=== PATIENT | female | born 1950 | race Caucasian/White ===

== ENCOUNTER 2020-01-07 08:50 | Outpatient (REF) | payer MEDICARE, OTHER, SELFPAY ==
[2020-01-07 10:36] LABS: MANUAL DIFF FLAG NO
[2020-01-07 10:47] LABS: Basophils Absolute Auto 0.1 X10*3/uL (0.0-0.2); Basophils Percent Auto 0.7 % (0-2); Eosinophils Absolute Auto 0.3 X10*3/uL (0.0-0.4); Eosinophils Percent Auto 3.9 % (0-4); Hematocrit 44.2 % (37-47); Hemoglobin 14.5 g/dl (12.0-16.0); Imm Gran Abs Auto 0.01 X10*3/uL (0.00-0.03); Imm Gran Pct Auto 0.1 % (0.0-0.4); Lymphocytes Percent Auto 28.6 % (20-40); Mean Corpuscular HGB Conc 32.8 g/dl (31.0-35.0); Mean Corpuscular Hemoglobin 30.9 pg (27.0-33.0); Mean Corpuscular Volume 94.2 fL (80-98); Mean Platelet Volume 9.3 fL (9.4-12.3); Monocytes Absolute Auto 0.8 X10*3/uL (0.1-1.2); Monocytes Percent Auto 11.9 % (2-11); Neutrophils Absolute Auto 3.8 X10*3/uL (2.0-8.3); Neutrophils Percent Auto 54.8 % (45-73); Platelet Count 381 X10*3/uL (160-400); Red Blood Count 4.69 X10*6/uL (4.20-5.50)
== END 2020-01-07 08:51 | disposition home or self-care (01) ==
LOC: HO.LAB 08:50
PROVIDERS: PCP Internal Medicine; Referring Provider Internal Medicine; Visit Provider Internal Medicine Pulmonary Disease
DX: J45.50 Severe persistent asthma, uncomplicated (principal); J44.9 Chronic obstructive pulmonary disease, unspecified; Z91.09 Other allergy status, other than to drugs and biological substances
CPT/HCPCS: 36415; 82785; 85025; 86003; 99212

== ENCOUNTER 2020-04-16 08:42 | Outpatient (REF) | payer MEDICARE, OTHER, SELFPAY ==
--- NOTE | ~2020-04-16 | MR_ITS ---
EXAMINATION: MRI OF THE BRAIN WITH AND WITHOUT IV CONTRAST INDICATION: Limited encephalitis. Intractable headache. COMPARISON: Brain MRI 09/17/2015. TECHNIQUE: Multiplanar multisequence MR imaging of the brain was obtained without and following the administration of 4.5 mL of Gadavist without complication. FINDINGS: Stable appearing nonenhancing T2 signal changes involving the fornices and posterior body and splenium of the corpus callosum. Stable nonspecific periventricular T2 signal changes. No progressive signal abnormalities and no pathologic enhancement intracranially. There is no hydrocephalus, extra-axial surface collection, or herniation. The major flow voids at the skull base are preserved. There is no acute infarct on diffusion-weighted imaging. There is no intracranial hemorrhage on the gradient recalled echo acquisition. The midline structures are normal. The cerebellar tonsils are normally positioned. The cerebellum and brainstem are normal. The craniocervical junction is normal. Osseous marrow signal intensity is homogenous. The visualized soft tissues are unremarkable. MR/MR head/brain wo/w con IMPRESSION: Stable appearing nonenhancing T2 signal changes involving the fornices and posterior body and splenium of the corpus callosum. Stable nonspecific periventricular T2 signal changes. No progressive signal abnormalities and no pathologic enhancement intracranially.
[2020-04-16 09:22] LABS: Blood Urea Nitrogen 5 mg/dL (9-16); Estimated Glomerular Filt Rate > 60
== END 2020-04-16 08:43 | disposition home or self-care (01) ==
LOC: HO.MRI 08:42
PROVIDERS: Visit Provider Psychiatry & Neurology Neurology
DX: R51.9 Headache, unspecified (principal); G31.84 Mild cognitive impairment of uncertain or unknown etiology
CPT/HCPCS: 36415; 70553; 82565; 84520; A9585

== ENCOUNTER → 2020-05-14 14:21 | Outpatient (BNVA) | payer MEDICARE, OTHER, SELFPAY | PROVIDERS: PCP Internal Medicine; Visit Provider Internal Medicine Pulmonary Disease | DX: J45.50 Severe persistent asthma, uncomplicated (principal); Z91.09 Other allergy status, other than to drugs and biological substances | CPT/HCPCS: 99212 ==

== ENCOUNTER 2020-09-14 08:15 | Day surgery (SDC) | payer MEDICARE, OTHER, SELFPAY ==
--- NOTE | 2020-09-11 08:46 | HO.ANESPROP2 ---
HPI - Anesthesia Eval Consult details Narrative: 70yo F for Colonoscopy PMFSH Active Problems Active Problems: All Active Problems (Updated 08/10/20 @ 16:06 by Madeleine Clemenst) Otitis externa (Acute) Severe persistent allergic asthma (Acute) Environmental allergies (Acute) Past Medical History Medical History Asthma Hiatal hernia Irritable bowel syndrome with constipation Migraine Family History Family History (Updated 12/25/19 @ 08:55 by Shelia Vance Geni) Father Diabetes Mother Cancer Surgical History Surgical History H/O ventral hernia repair History of bilateral carpal tunnel release History of esophagogastroduodenoscopy (EGD) Hx of colonoscopy Social History Social History (Updated 01/07/20 @ 09:00 by Ashleigh Vail MA) Patient Tobacco Use Status: Former Tobacco user Years Smoked: 20-25 yrs Use of substances other than those prescribed or required for medical reasons: No Are you DNR?: No Advance Directives: No Advance Directives Information Provided: Yes Meds Allergies Allergy/AdvReac Type Severity Reaction Status Date / Time azithromycin Allergy Severe hives Verified 09/14/20 09:12 amoxicillin [AMOXICILLIN] Allergy Intermediate UNKNOWN Verified 09/14/20 09:12 doxycycline [DOXYCYCLINE] Allergy Intermediate Hives Verified 09/14/20 09:12 latex Allergy Intermediate Swelling Verified 09/14/20 09:12 Sulfa (Sulfonamide Allergy Intermediate HIVES Verified 09/14/20 09:12 Antibiotics) [SULFA (SULFONAMIDE ANTIBIOTICS)] Home Medications Medication Instructions Recorded Confirmed Last Taken Type levalbuterol HCl 1.25 mg/3 mL 0.4167 mg INHALATION Q8H PRN 12/26/19 08/10/20 Unknown History solution for nebulization gghdofkb-rkdqmhgux-mmjkadalf ear 4 drp OTIC (EARS) BID 02/07/20 Unknown History drops,suspension oucisspwfn-imjfkfenikcrv-jdfu 1 tab PO Q6H PRN 08/10/20 08/10/20 Unknown History divalproex 1 tab PO DAILY 08/10/20 08/10/20 Unknown History promethazine 1 tab PO BID PRN 08/10/20 08/10/20 Unknown History Exam Exam Date and Time: September 11, 2020 2591 Assessment and Plan Assessment Anesthesia Assessment: Chart Reviewed
[2020-09-14 09:22] VITALS: BMI 20.2
[2020-09-14 09:30] VITALS: BP 128/49; PULSE 72; RESP 18; TEMP 36.1; O2SAT 98
[2020-09-14] MEDS: Lactated Ringers 1,000 ML 100 ML IVCONT (09:53)
[2020-09-14 10:37] VITALS: BP 123/74; PULSE 67; RESP 16; TEMP 36.3; O2SAT 99
--- NOTE | 2020-09-14 10:40 | PM.OP ---
Brief Operative Note Date of Service: 09/14/20 Pre-op diagnosis: Screening Post-op diagnosis: other (Diverticulosis) Procedure: Colonoscopy to the cecum and TI Surgeon: Arthur De La Cruz Anesthesia: MAC Was an Insurance Salesperson used for this Procedure?: No Estimated blood loss (mL): 0 Pathology: none sent Condition: stable Disposition: PACU
[2020-09-14 10:53] VITALS: BP 123/44; PULSE 67; RESP 16; TEMP 36.4; O2SAT 95
--- NOTE | 2020-09-14 10:53 | OP_ITS ---
SURGEON: Arthur De La Cruz MD INDICATIONS: The patient presents for evaluation of colorectal cancer screening and personal history of tubular adenoma of the colon. Full consent has been obtained from her for this, including risks of bleeding and perforation. PREOPERATIVE DIAGNOSIS: POSTOPERATIVE DIAGNOSIS: PROCEDURE PERFORMED: Colonoscopy to cecum and terminal ileum. ESTIMATED BLOOD LOSS: COMPLICATIONS: ANESTHESIA: Monitored anesthesia care. ASSISTANTS: SPECIMENS: PREOPERATIVE DIAGNOSES: Colorectal cancer screening and personal history of tubular adenoma of the colon. POSTOPERATIVE DIAGNOSES: Colorectal cancer screening and personal history of tubular adenoma of the colon, diverticulosis and internal hemorrhoids. DESCRIPTION OF PROCEDURE: The patient was placed in the left lateral decubitus position. The digital rectal exam revealed no abnormalities. The Olympus video pediatric colonoscope was entered into the rectum and advanced easily to the cecum. Once in the cecum, I did identify normal-appearing cecal pouch with appendiceal orifice and a normal-appearing ileocecal valve. The terminal ileum was cannulated and appeared normal. The scope was withdrawn back in the colon. The entire cecum and ileocecal valve appeared normal. The scope was slowly withdrawn assessing all mucosal surfaces carefully. Preparation was excellent. I did not visualize any sign of polyps, colitis, nor angiodysplasia. There was a mild amount of sigmoid diverticulosis. In the rectum, scope was retroflexed visualizing internal hemorrhoids, but no other pathology. The rectal mucosa appeared normal. The scope was straightened out and withdrawn from the patient. She tolerated the procedure well and was returned to the recovery area in stable condition. IMPRESSION: 1. Diverticulosis. 2. Internal hemorrhoids. PLAN: Given her previous history of tubular adenoma, I would recommend a followup colonoscopy in 5 years for further screening and surveillance. She was advised to continue her fiber for her constipation. She will see me on a p.r.n. basis. MD OLE Pelletier/DAVID / [id number]
== END 2020-09-14 11:24 | disposition home or self-care (01) ==
PROVIDERS: PCP Internal Medicine; Visit Provider Internal Medicine
PROC: 0DJD8ZZ Inspection of Lower Intestinal Tract, Via Natural or Artificial Opening Endoscopic (ICD-10-PCS; CPT 45378; principal; 2020-09-14 09:20)
DX: Z12.11 Encounter for screening for malignant neoplasm of colon (principal); Z86.010 Personal history of colon polyps; K57.30 Diverticulosis of large intestine without perforation or abscess without bleeding; K64.8 Other hemorrhoids; K58.1 Irritable bowel syndrome with constipation; J45.909 Unspecified asthma, uncomplicated; Z87.891 Personal history of nicotine dependence; Z79.899 Other long term (current) drug therapy; Z88.1 Allergy status to other antibiotic agents; Z88.2 Allergy status to sulfonamides; Z91.040 Latex allergy status
CPT/HCPCS: G0105

== ENCOUNTER → 2020-11-13 12:59 | Outpatient (BNVA) | payer MEDICARE, OTHER, SELFPAY | PROVIDERS: PCP Internal Medicine; Visit Provider Internal Medicine Pulmonary Disease | DX: J45.50 Severe persistent asthma, uncomplicated (principal); Z91.09 Other allergy status, other than to drugs and biological substances | CPT/HCPCS: 99212 ==

== ENCOUNTER → 2020-12-07 10:30 | Outpatient (BNVA) | payer MEDICARE, OTHER, SELFPAY | PROVIDERS: PCP Internal Medicine; Visit Provider Internal Medicine Pulmonary Disease | DX: J45.50 Severe persistent asthma, uncomplicated (principal); Z91.09 Other allergy status, other than to drugs and biological substances | CPT/HCPCS: 99212 ==

== ENCOUNTER 2021-01-08 07:08 | Outpatient (REF) | payer MEDICARE, OTHER, SELFPAY ==
[2021-01-08 07:25] LABS: MANUAL DIFF FLAG NO
[2021-01-08 07:44] LABS: Basophils Percent Auto 0.6 % (0-2); Eosinophils Absolute Auto 0.3 X10*3/uL (0.0-0.4); Eosinophils Percent Auto 4.9 % (0-4); Hematocrit 41.9 % (37.0-47.0); Hemoglobin 14.4 g/dl (12.0-16.0); Lymphocytes Absolute Auto 1.8 X10*3/uL (1.2-4.9); Lymphocytes Percent Auto 33.8 % (20-40); Mean Corpuscular HGB Conc 34.4 g/dl (31.0-35.0); Mean Corpuscular Volume 93.1 fL (80.0-98.0); Mean Platelet Volume 8.8 fL (9.4-12.3); Monocytes Absolute Auto 0.6 X10*3/uL (0.1-1.2); Monocytes Percent Auto 11.2 % (2-11); Neutrophils Absolute Auto 2.6 x10*3/uL (2.0-8.3); Neutrophils Percent Auto 49.5 % (45-73); Platelet Count 375 X10*3/uL (160-400); White Blood Count 5.3 X10*3/uL (4.8-10.8)
[2021-01-08 07:52] LABS: Estimated Average Glucose 140 mg/dL; Hemoglobin A1c % 6.5 %
[2021-01-08 07:54] LABS: Alanine Aminotransferase 15 U/L (0-31); Albumin Level 4.2 g/dL (3.5-5.0); Alkaline Phosphatase 116 U/L (39-117); Anion Gap 14 (12-20); Aspartate Amino Transferase 19 U/L (5-31); Bilirubin Total 0.7 mg/dL (0.0-1.0); Blood Urea Nitrogen 6 mg/dL (9-16); Calcium 9.1 mg/dL (8.4-10.2); Carbon Dioxide 26 mmol/L (22-29); Chloride 104 mmol/L (96-108); Cholesterol 259 mg/dL; Estimated Glomerular Filt Rate > 60; Glucose Fasting 136 mg/dL (60-99); HDL Cholesterol 70 mg/dL; LDL Cholesterol Calculated 172 mg/dl; Potassium 4.4 mmol/L (3.3-5.1); Sodium 140 mmol/L (135-145); Total Protein 6.9 g/dL (6.5-8.0); Triglycerides 85 mg/dL
[2021-01-08 08:16] LABS: Thyroid Stimulating Hormone 1.18 uIU/mL (0.32-4.0)
[2021-01-13 13:11] LABS: Vitamin D 25-OH, D2 <4 ng/mL; Vitamin D 25-OH, D3 32 ng/mL; Vitamin D 25-OH, Total 32 ng/mL (30-100)
== END 2021-01-08 07:09 | disposition home or self-care (01) ==
LOC: HO.LAB 07:08
PROVIDERS: PCP Internal Medicine; Visit Provider Internal Medicine
DX: Z00.00 Encounter for general adult medical examination without abnormal findings (principal); E11.9 Type 2 diabetes mellitus without complications
CPT/HCPCS: 36415; 80053; 80061; 82306; 83036; 84443; 85025

== ENCOUNTER → 2021-01-18 10:26 | Outpatient (BNVA) | payer MEDICARE, OTHER, SELFPAY | PROVIDERS: PCP Internal Medicine; Visit Provider Internal Medicine Pulmonary Disease | DX: J45.50 Severe persistent asthma, uncomplicated (principal); Z91.09 Other allergy status, other than to drugs and biological substances | CPT/HCPCS: 99212 ==

== ENCOUNTER → 2021-04-30 14:08 | Outpatient (BNVA) | payer MEDICARE, OTHER, SELFPAY | PROVIDERS: PCP Internal Medicine; Visit Provider Internal Medicine Pulmonary Disease | DX: J45.50 Severe persistent asthma, uncomplicated (principal); Z91.09 Other allergy status, other than to drugs and biological substances | CPT/HCPCS: 99212 ==

== ENCOUNTER 2021-05-28 09:05 | Outpatient (REF) | payer MEDICARE, OTHER, SELFPAY | END 2021-05-28 09:06 | disposition home or self-care (01) | LOC: HO.MDS 09:05 | PROVIDERS: Visit Provider Internal Medicine Pulmonary Disease | DX: J45.50 Severe persistent asthma, uncomplicated (principal) | CPT/HCPCS: 96372; J2357 ==

== ENCOUNTER 2021-06-25 08:18 | Outpatient (REF) | payer MEDICARE, OTHER, SELFPAY | END 2021-06-25 08:19 | disposition home or self-care (01) | LOC: HO.MDS 08:18 | PROVIDERS: Visit Provider Internal Medicine Pulmonary Disease | DX: J45.50 Severe persistent asthma, uncomplicated (principal) | CPT/HCPCS: 96372; J2357 ==

== ENCOUNTER 2021-07-23 08:51 | Outpatient (REF) | payer MEDICARE, OTHER, SELFPAY | END 2021-07-23 08:52 | disposition home or self-care (01) | LOC: HO.MDS 08:51 | PROVIDERS: Visit Provider Internal Medicine Pulmonary Disease | DX: J45.50 Severe persistent asthma, uncomplicated (principal) | CPT/HCPCS: 96372 ==

== ENCOUNTER → 2021-07-26 10:29 | Outpatient (BNVA) | payer MEDICARE, OTHER, SELFPAY | PROVIDERS: PCP Internal Medicine; Visit Provider Internal Medicine Pulmonary Disease | DX: J45.50 Severe persistent asthma, uncomplicated (principal); Z91.09 Other allergy status, other than to drugs and biological substances; Z79.899 Other long term (current) drug therapy | CPT/HCPCS: 99212 ==

== ENCOUNTER 2021-09-17 11:15 | Outpatient (REF) | payer MEDICARE, OTHER, SELFPAY | END 2021-09-17 11:16 | disposition home or self-care (01) | LOC: HO.MDS 11:15 | PROVIDERS: Visit Provider Internal Medicine Pulmonary Disease | DX: J45.50 Severe persistent asthma, uncomplicated (principal) | CPT/HCPCS: 96372; J2357 ==

== ENCOUNTER 2021-10-14 13:16 | Outpatient (REF) | payer MEDICARE, OTHER, SELFPAY ==
--- NOTE | ~2021-10-14 | MM_ITS ---
EXAMINATION: BONE DENSITOMETRY CLINICAL INDICATION: Osteoporosis. COMPARISON: Baseline BD dated 01/02/2014. TECHNIQUE: Using a [employer] DXA System (software version: 13.1) manufactured by [employer], dual-energy x-ray absorptiometry was performed of the lumbar spine and left hip. The images are of good technical quality. Summary results are attached. FINDINGS: AP SPINE L1-L4: Current: BMD 0.818 g/cm2, Z-score -0.7, T-score -3.0, osteoporosis, 1.9% decrease from baseline (<5% change is not significant). Baseline: BMD 0.834 g/cm2. LEFT FEMUR, NECK: Current: BMD 0.677 g/cm2, Z-score -0.5, T-score -2.6, osteoporosis. Baseline: BMD 0.674 g/cm2. LEFT FEMUR, TOTAL: Current: BMD 0.619 g/cm2, Z-score -1.1, T-score -3.1, osteoporosis, 11.9% decrease from baseline (<5% change is not significant). Baseline: BMD 0.703 g/cm2. IDENTIFIED RISK FACTORS: Early menopause, glucocorticoids (chronic), secondary osteoporosis. HISTORY OF FRACTURE: None listed. MEDICATIONS: None listed. MM/XR DEXA axial skeleton IMPRESSION: 1. DIAGNOSIS: Osteoporosis based on the lowest T-score value of -3.1 in the total femur applying World Health Organization criteria. 2. 10-YEAR FRACTURE RISK PREDICTION, FRAX: Major osteoporotic fracture (clinical spine, forearm, hip or shoulder) 3.7%. Hip fracture 1.4%. 3. Treatment Recommendations: NOF guidelines recommend consideration for treatment in postmenopausal women and men age 50 and older presenting with the following: -A hip or vertebral (clinical or morphometric) fracture. -T-score less than or equal to -2.5 at the femoral neck or spine after appropriate evaluation to exclude secondary causes. -Low bone mass at the hip or spine and a 10-year fracture probability by FRAX of greater than or equal to 3% for hip fracture or greater than or equal to 20% for major osteoporotic fracture based on the [place] adapted WHO algorithm. 4. Other Recommendations: All treatment decisions require clinical judgment and consideration of individual patient factors, including patient preferences, comorbidities, previous drug use, risk factors not captured in the FRAX model (e.g. frailty, falls, vitamin D deficiency, increased bone turnover, interval significant decline in bone density) and possible under or overestimation of fracture risk by FRAX. Additional medical evaluation for secondary cause of low bone mineral density may be appropriate. FUTURE SCAN RECOMMENDATION: People with diagnosed cases of osteoporosis or at high risk for fracture should have regular bone mineral density tests. For patients eligible for Medicare, routine testing is allowed once every 2 years. The testing frequency can be increased to one year for patients who have rapidly progressing disease, those who are receiving or discontinuing medical therapy to restore bone mass, or have additional risk factors.
== END 2021-10-14 13:17 | disposition home or self-care (01) ==
LOC: HO.MAMMO 13:16
PROVIDERS: PCP Internal Medicine; Visit Provider Internal Medicine
DX: Z13.820 Encounter for screening for osteoporosis (principal); M81.0 Age-related osteoporosis without current pathological fracture; Z78.0 Asymptomatic menopausal state
CPT/HCPCS: 77080

== ENCOUNTER → 2021-10-18 09:54 | Outpatient (BNVA) | payer MEDICARE, OTHER, SELFPAY | PROVIDERS: PCP Internal Medicine; Visit Provider Internal Medicine Pulmonary Disease | DX: J45.50 Severe persistent asthma, uncomplicated (principal); Z87.891 Personal history of nicotine dependence; Z91.09 Other allergy status, other than to drugs and biological substances | CPT/HCPCS: 99212 ==

== ENCOUNTER → 2021-11-23 14:42 | Outpatient (BNVA) | payer MEDICARE, OTHER, SELFPAY | PROVIDERS: PCP Internal Medicine; Visit Provider Internal Medicine Pulmonary Disease | DX: J45.50 Severe persistent asthma, uncomplicated (principal); Z91.09 Other allergy status, other than to drugs and biological substances; Z87.891 Personal history of nicotine dependence | CPT/HCPCS: 99212 ==

== ENCOUNTER → 2021-12-29 15:20 | Outpatient (BNVA) | payer MEDICARE, OTHER, SELFPAY | PROVIDERS: PCP Internal Medicine; Visit Provider Internal Medicine Pulmonary Disease | DX: J45.50 Severe persistent asthma, uncomplicated (principal); Z91.09 Other allergy status, other than to drugs and biological substances | CPT/HCPCS: 99212 ==

== ENCOUNTER 2022-03-04 10:53 | Outpatient (REF) | payer MEDICARE, OTHER, SELFPAY ==
--- NOTE | ~2022-03-04 | XR_ITS ---
EXAMINATION: XR CHEST 2 VIEWS CLINICAL INFORMATION: Asthma. COMPARISON: Chest radiographs dated 10/05/2018. TECHNIQUE: Frontal and lateral views of the chest were obtained. FINDINGS: The heart, great vessels, pulmonary vasculature and mediastinum are normal. The lungs show no focal infiltrate, effusion or pneumothorax. There is biapical pleural thickening. There is no acute osseous abnormality. There is multi-level thoracic spondylosis. XR/XR chest 2V IMPRESSION: No active cardiopulmonary disease.
[2022-03-04 11:05] LABS: MANUAL DIFF FLAG NO
--- NOTE | 2022-03-04 11:06 | ECG_ITS ---
Test Reason : ASTHMA Blood Pressure : / mmHG Vent. Rate : 083 BPM Atrial Rate : 083 BPM P-R Int : 156 ms QRS Dur : 048 ms QT Int : 358 ms P-R-T Axes : 091 081 077 degrees QTc Int : 420 ms Normal sinus rhythm Normal ECG When compared with ECG of 05-AUG-2016 14:44, No significant changes seen Referred By: Ashvin Gunderson Electronically Signed By:Refugio Davis
[2022-03-04 12:29] LABS: Basophils Absolute Auto 0.1 X10*3/uL (0.0-0.2); Basophils Percent Auto 0.9 % (0-2); Eosinophils Absolute Auto 0.3 X10*3/uL (0.0-0.4); Eosinophils Percent Auto 3.7 % (0-4); Hematocrit 41.4 % (37.0-47.0); Hemoglobin 13.8 g/dl (12.0-16.0); Imm Gran Abs Auto 0.02 X10*3/uL (0.00-0.03); Imm Gran Pct Auto 0.3 % (0.0-0.4); Lymphocytes Absolute Auto 2.1 X10*3/uL (1.2-4.9); Lymphocytes Percent Auto 27.8 % (20-40); Mean Corpuscular HGB Conc 33.3 g/dl (31.0-35.0); Mean Corpuscular Hemoglobin 31.2 pg (27.0-33.0); Mean Corpuscular Volume 93.7 fL (80.0-98.0); Mean Platelet Volume 9.5 fL (9.4-12.3); Monocytes Absolute Auto 0.7 X10*3/uL (0.1-1.2); Monocytes Percent Auto 9.3 % (2-11); Neutrophils Absolute Auto 4.4 x10*3/uL (2.0-8.3); Platelet Count 358 X10*3/uL (160-400); Red Blood Count 4.42 X10*6/uL (4.20-5.50); Red Cell Distribution Width 12.1 % (11.0-16.0); White Blood Count 7.5 X10*3/uL (4.8-10.8)
[2022-03-04 12:43] LABS: Anion Gap 14 (12-20); Blood Urea Nitrogen 7 mg/dL (9-16); Calcium 9.3 mg/dL (8.4-10.2); Carbon Dioxide 27 mmol/L (22-29); Chloride 104 mmol/L (96-108); Estimated Glomerular Filt Rate > 60; Glucose Random 150 mg/dL (60-115); Potassium 4.5 mmol/L (3.3-5.1); Sodium 140 mmol/L (135-145)
== END 2022-03-04 10:54 | disposition home or self-care (01) ==
LOC: HO.XRAY 10:53
PROVIDERS: PCP Internal Medicine; Visit Provider Internal Medicine
DX: J45.909 Unspecified asthma, uncomplicated (principal); D64.9 Anemia, unspecified
CPT/HCPCS: 36415; 71046; 80048; 85025; 93005

== ENCOUNTER → 2022-07-01 14:31 | Outpatient (BNVA) | payer MEDICARE, OTHER, SELFPAY | PROVIDERS: PCP Internal Medicine; Visit Provider Internal Medicine Pulmonary Disease | DX: J45.50 Severe persistent asthma, uncomplicated (principal); Z91.09 Other allergy status, other than to drugs and biological substances | CPT/HCPCS: 99212 ==

== ENCOUNTER 2022-07-20 13:20 | Outpatient (REF) | payer MEDICARE, OTHER, SELFPAY | END 2022-07-20 13:21 | disposition home or self-care (01) | LOC: HO.MDS 13:20 | PROVIDERS: Visit Provider Internal Medicine Pulmonary Disease | DX: J45.50 Severe persistent asthma, uncomplicated (principal) | CPT/HCPCS: 96372; J2182 ==

== ENCOUNTER 2022-08-19 09:56 | Outpatient (REF) | payer MEDICARE, OTHER, SELFPAY | END 2022-08-19 09:57 | disposition home or self-care (01) | LOC: HO.MDS 09:56 | PROVIDERS: Visit Provider Internal Medicine Pulmonary Disease | DX: J45.50 Severe persistent asthma, uncomplicated (principal) | CPT/HCPCS: 96372; J2182 ==

== ENCOUNTER 2022-09-19 07:55 | Outpatient (REF) | payer MEDICARE, OTHER, SELFPAY | END 2022-09-19 07:56 | disposition home or self-care (01) | LOC: HO.MDS 07:55 | PROVIDERS: Visit Provider Internal Medicine Pulmonary Disease | DX: J45.50 Severe persistent asthma, uncomplicated (principal) | CPT/HCPCS: 96372; J2182 ==

== ENCOUNTER 2022-10-17 08:25 | Outpatient (REF) | payer MEDICARE, OTHER, SELFPAY | END 2022-10-17 08:26 | disposition home or self-care (01) | LOC: HO.MDS 08:25 | PROVIDERS: Visit Provider Internal Medicine Pulmonary Disease | DX: J45.50 Severe persistent asthma, uncomplicated (principal) | CPT/HCPCS: 96372; J2182 ==

== ENCOUNTER 2022-11-14 08:24 | Outpatient (REF) | payer MEDICARE, OTHER, SELFPAY | END 2022-11-14 08:25 | disposition home or self-care (01) | LOC: HO.MDS 08:24 | PROVIDERS: Visit Provider Internal Medicine Pulmonary Disease | DX: J45.50 Severe persistent asthma, uncomplicated (principal) | CPT/HCPCS: 96372; J2182 ==

== ENCOUNTER 2022-12-12 08:28 | Outpatient (REF) | payer MEDICARE, OTHER, SELFPAY | END 2022-12-12 08:29 | disposition home or self-care (01) | LOC: HO.MDS 08:28 | PROVIDERS: Visit Provider Internal Medicine Pulmonary Disease | DX: J45.50 Severe persistent asthma, uncomplicated (principal) | CPT/HCPCS: 96372; J2182 ==

== ENCOUNTER 2022-12-16 09:39 | Outpatient (AMB) | payer MEDICARE, OTHER, SELFPAY ==
[2022-12-16 09:42] VITALS: BP 122/58; PULSE 80; O2SAT 96; BMI 20.6
--- NOTE | 2022-12-16 09:42 | A.OFFPC_ITS ---
Vital Signs 12/16/22 09:42 Height 4 ft 11 in Weight 102 lb BMI 20.6 BP 122/58 L Blood Pressure Location Lt brachial Position Sitting Pulse 80 Pulse Source Pulse Oximeter Pulse Oximetry (%) 96 Oxygen Delivery Method Room Air Intake Visit Reasons: Discuss Bone density / Flu shot Allergies azithromycin Allergy (Severe, Verified 12/16/22 09:42) hives amoxicillin [AMOXICILLIN] Allergy (Intermediate, Verified 12/16/22 09:42) UNKNOWN doxycycline [DOXYCYCLINE] Allergy (Intermediate, Verified 12/16/22 09:42) Hives latex Allergy (Intermediate, Verified 12/16/22 09:42) Swelling Sulfa (Sulfonamide Antibiotics) [SULFA (SULFONAMIDE ANTIBIOTICS)] Allergy (Intermediate, Verified 12/16/22 09:42) HIVES Medication List - Last Reconciled 12/16/22 by Ashvin Gunderson MD albuterol sulfate 90 mcg/actuation (ProAir RespiClick) 2 inhalations inhalation Q4-6H PRN 30 days budesonide 0.5 mg (2 mL) inhalation BID 30 days bsjanoiqdg-ayuwwtzivcund-tfaq 50-325-40 mg 1 tab PO Q6H PRN dicyclomine 20 mg (2 x 10 mg) PO QID hydrocodone-acetaminophen 7.5-325 mg/15 mL 15 mL PO Q4-6H PRN 30 days ipratropium-albuterol 0.5 mg-3 mg(2.5 mg base)/3 mL 3 mL inhalation Q4-6H PRN 30 days mepolizumab (Nucala) 100 mg subcut Q4W 28 days methylprednisolone (Medrol (Gal)) PO PER PKG DIR zolpidem 5 mg PO BEDTIME PRN Tobacco use date assessed: 03/04/22 Fall risk assessment: No Falls in past year Last assessed Fall Risk: 12/16/22 Dental Screening Dental Screen Date: 12/16/22 Did you have a dental visit in the last 12 months?: No Did you have a dental problem in the last 6 months where you did not have access to dental care?: No Was dental information given to patient?: Patient has dentist HPI Discuss Bone density / Flu shot HPI Details has asthma and 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 be 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; also has headaches and will be going to [facility] neurology for that; has osteoporosis on bone density but not due for a repeat until next year [facility] Medical History Migraine headache Hiatal hernia Migraine Irritable bowel syndrome with constipation Asthma Surgical History History of bilateral carpal tunnel release History of esophagogastroduodenoscopy (EGD) Hx of colonoscopy H/O ventral hernia repair Family History Father Diabetes Mother Cancer Social History Housing: House Patient Tobacco Use Status: Former Tobacco user Tobacco use type: Cigarette Years Smoked: 20-25 yrs e-Cigarette/Vaping Use: Never Used Second Hand Smoke Exposure: No service: No Current occupational status: retired Cognitive needs: No Hearing needs: No Vision needs: No Questionnaire PHQ-9 Over the last 2 weeks, how often have you been bothered by any of the following problems? 1. Little interest or pleasure in doing things: not at all 2. Feeling down, depressed, or hopeless: not at all 3. Trouble falling or staying asleep, or sleeping too much: not at all 4. Feeling tired or having little energy: not at all 5. Poor appetite or overeating: not at all 6. Feeling bad about yourself - or that you are a failure or have let yourself or your family down: not at all 7. Trouble concentrating on things, such as reading the newspaper or watching television: not at all 8. Moving or speaking so slowly that other people could have noticed. Or the opposite - being so fidgety or restless that you have been moving around a lot more than usual: not at all 9. Thoughts that you would be better off or of hurting yourself in some way: not at all Total score: 0 Depression Screening Interpretation: Negative Depression Screening Done: Yes 40013 - PHQ-9 Billing: Yes Source: Developed by Drs. Arthur Avila, Cadence Murphy, Fabian Melo and colleagues, with an educational sheng from [employer]. Thrive Questionnaire Date Thrive assessed: 03/04/22 AUDIT C Alcohol Use Questionnaire (AUDIT-C) 1. How often do you have a drink containing alcohol?: Never 3. How often do you have six or more drinks on one occasion?: Never Total Score: 0 Score Reviewed/Action Taken: Yes JANIS-7 AMB Questionnaire JANIS-7 Date JANIS - 7 assessed: 03/04/22 Source: Developed by Drs. Arthur Avila, Cadence Murphy, Fabian Melo and colleagues, with an educational sheng from [employer]. Review of Systems Const Denies chills and Denies weight loss Card Denies chest pain, Denies syncope, Denies irregular heart rhythm and Denies dyspnea Resp Denies chest congestion, Denies cough and Denies dyspnea GI Denies abdominal pain, Denies change in stool character, Denies nausea and Denies vomiting Musc Denies deformity and Denies joint swelling Neuro Denies syncope Physical exam (Primary Care) Vital Signs: Last Vital Signs Pulse 80 12/16/22 09:42 BP 122/58 L 12/16/22 09:42 Pulse Ox 96 12/16/22 09:42 Oxygen Delivery Method Room Air 12/16/22 09:42 BMI result Body Mass Index 20.6 Tobacco/Smoking Status: Tobacco use Status Tobacco use date assessed 03/04/22 12/16/22 09:48 Patient Tobacco Use Status Former Tobacco user 12/16/22 09:48 Tobacco use type Cigarette 12/16/22 09:48 e-Cigarette/Vaping Use Never Used 12/16/22 09:48 PHQ-9: PHQ-9 Score PHQ-9: Total score 0 12/16/22 09:48 Depression Screening Interpretation: Negative Thrive Assessment: Date of Thrive Assessment Date Thrive assessed 03/04/22 12/16/22 09:48 Const General: cooperative, comfortable, no acute distress and alert Neck Neck: Yes no lymphadenopathy Thyroid: Thyroid normal Resp Effort & Inspection: normal respiratory effort Auscultation: clear to auscultation bilaterally Percussion: percussion normal Cardio Jugular venous distension: no JVD Palpation: normal PMI Rate: regular rate Rhythm: regular rhythm Heart sounds: S1 normal heart sound present and S2 normal heart sound present GI Inspection: Yes normal to inspection Palpation (GI): No hepatosplenomegaly present Skin General skin exam: no rashes or lesions noted Extrem General: Yes no clubbing, cyanosis or edema Assessment and Plan Assessment & Plan (1) Asthma: Code(s): J45.909 - Unspecified asthma, uncomplicated Plan: stable; same rx (2) Migraine headache: Code(s): G43.909 - Migraine, unspecified, not intractable, without status migrainosus Plan: stable; same rx (3) Osteoporosis: Code(s): M81.0 - Age-related osteoporosis without current pathological fracture Plan: stable; Coding Level of Care Code Est Pt Level 4 (36411) Diagnoses Asthma J45.909 Migraine headache G43.909 Osteoporosis M81.0
== END 2022-12-16 09:56 | disposition home or self-care (01) ==
PROVIDERS: PCP Internal Medicine; Visit Provider Internal Medicine
DX: J45.909 Unspecified asthma, uncomplicated (principal); G43.909 Migraine, unspecified, not intractable, without status migrainosus; M81.0 Age-related osteoporosis without current pathological fracture; Z23 Encounter for immunization
CPT/HCPCS: 90471; 90686; 99214

== ENCOUNTER 2023-01-05 13:53 | Outpatient (AMB) | payer MEDICARE, OTHER, SELFPAY ==
[2023-01-05 14:01] VITALS: BP 138/64; PULSE 99; O2SAT 96; BMI 20.9
--- NOTE | 2023-01-05 14:01 | A.OFFVIS_ITS ---
Intake Vital Signs 01/05/23 14:01 Height 4 ft 11 in Weight 103 lb 9.876 oz BMI 20.9 BP 138/64 Blood Pressure Location Lt brachial Position Sitting Pulse 99 Pulse Source Doppler Pulse Oximetry (%) 96 Oxygen Delivery Method Room Air Intake Visit Reasons: Shortness of breath Allergies azithromycin Allergy (Severe, Verified 01/05/23 14:06) hives amoxicillin [AMOXICILLIN] Allergy (Intermediate, Verified 01/05/23 14:06) UNKNOWN doxycycline [DOXYCYCLINE] Allergy (Intermediate, Verified 01/05/23 14:06) Hives latex Allergy (Intermediate, Verified 01/05/23 14:06) Swelling Sulfa (Sulfonamide Antibiotics) [SULFA (SULFONAMIDE ANTIBIOTICS)] Allergy (Intermediate, Verified 01/05/23 14:06) HIVES HPI Shortness of breath HPI Details 72-year-old lady, former approximately 1 5 pack-year smoker, quit 20 years prior, followed for severe persistent asthma and environmental allergies.? She has been tried on Xolair, however she developed side effects from its use.? She is not able to afford inhaled inhaled steroid/long-acting beta agonist or short acting beta agonist either.? She has been tried on Nucala, however she denies any symptomatic improvement. Patient also complains of headache when using nebulized budesonide and albuterol. She has been relying heavily on albuterol MDI. [facility] Medical History Migraine headache Hiatal hernia Migraine Irritable bowel syndrome with constipation Asthma Surgical History History of bilateral carpal tunnel release History of esophagogastroduodenoscopy (EGD) Hx of colonoscopy H/O ventral hernia repair Family History Father Diabetes Mother Cancer Social History Housing: House Patient Tobacco Use Status: Former Tobacco user Tobacco use type: Cigarette Years Smoked: 20-25 yrs e-Cigarette/Vaping Use: Never Used Second Hand Smoke Exposure: No service: No Current occupational status: retired Cognitive needs: No Hearing needs: No Vision needs: No Review of Systems Const Denies daytime sleepiness, Denies excessive sweating, Denies fatigue, Denies fever(s), Denies lethargy, Denies malaise, Denies night sweats, Denies snoring and Denies weight loss Eyes Denies blurry vision and Denies itchy eyes ENT Denies nasal congestion, Denies post nasal drip, Denies sinus pain, Denies sinus pressure and Denies other ( Thrush) Card Denies chest pain, Denies pedal edema, Denies dyspnea, Denies orthopnea and Denies paroxysmal nocturnal dyspnea Resp Denies cough, Denies hemoptysis, Denies excessive phlegm production, Denies dyspnea, Denies snoring and Denies wheezing GI Denies abdominal pain and Denies heartburn Musc Denies myalgias, Denies arthralgias and Denies joint swelling Skin/Breast Denies rash Neuro Denies memory loss and Denies seizure-like activity Psych Denies abnormal sleep pattern, Denies anxiety and Denies memory loss Endo Denies excessive sweating, Denies fatigue and Denies heat intolerance Bob/Lymph Denies easy bruising Aller/Immun Denies itchy eyes, Denies seasonal rhinorrhea and Denies wheezing Physical Exam Vital Signs: Last Vital Signs Pulse 99 01/05/23 14:01 BP 138/64 01/05/23 14:01 Pulse Ox 96 01/05/23 14:01 Oxygen Delivery Method Room Air 01/05/23 14:01 BMI result Body Mass Index 20.9 Const General: no acute distress and alert Nutritional Appearance: not obese Orientation/consciousness: Other orientation findings ( oriented) HEENT Head: Yes atraumatic Eyes General: appearance normal, both eyes and all related structures Sclerae: sclerae normal EOM: EOMs intact bilaterally Neck Neck: Yes supple Lymphatic: no lymphadenopathy noted Resp Effort & Inspection: normal respiratory effort and no use of accessory muscles Auscultation: clear to auscultation bilaterally Cardio Rate: regular rate Rhythm: regular rhythm Heart sounds: no gallops, no murmurs and no rubs Skin General skin exam: other ( warm) Extrem General: No clubbing, No cyanosis and No edema Assessment & Plan Assessment & Plan (1) Severe persistent allergic asthma: Code(s): J45.50 - Severe persistent asthma, uncomplicated Plan: Allergic to Xolair, intolerant of nebulized budesonide and albuterol. Unable to afford inhaled corticosteroid. Continue albuterol MDI. Start Combivent. (2) Environmental allergies: Code(s): Z91.09 - Other allergy status, other than to drugs and biological substances Plan: No response to Nucala patient would like to stop at this time. Medications: New Combivent Respimat 20-100 mcg/actuation (ipratropium-albuterol) 1 puff inhalation Q4H 1 ea 6RF 30 days NS Refilled hydrocodone-acetaminophen 7.5-325 mg/15 mL Partial Fill upon patient request. 15 mL PO Q4-6H PRN 473 mL 0RF pain 30 days Discontinued ipratropium-albuterol 0.5 mg-3 mg(2.5 mg base)/3 mL Discontinued Reason: Doctor's Order 3 mL inhalation Q4-6H 30 days PRN 270 mL 6RF wheezing budesonide Discontinued Reason: Doctor's Order 0.5 mg (2 mL) inhalation BID 30 days 120 mL 6RF J45.50 - Severe persistent asthma, uncomplicated Coding Level of Care Code Est Pt Level 4 (59026) Diagnoses Severe persistent allergic asthma J45.50 Environmental allergies Z91.09
== END 2023-01-05 14:22 | disposition home or self-care (01) ==
PROVIDERS: PCP Internal Medicine; Visit Provider Internal Medicine Pulmonary Disease
DX: J45.50 Severe persistent asthma, uncomplicated (principal); Z91.09 Other allergy status, other than to drugs and biological substances
CPT/HCPCS: 99214

== ENCOUNTER → 2023-01-05 13:53 | Outpatient (BNVA) | payer MEDICARE, OTHER, SELFPAY | PROVIDERS: PCP Internal Medicine; Visit Provider Internal Medicine Pulmonary Disease | DX: J45.50 Severe persistent asthma, uncomplicated (principal); Z91.09 Other allergy status, other than to drugs and biological substances | CPT/HCPCS: 99212 ==

== ENCOUNTER 2023-01-20 09:09 | Outpatient (AMB) | payer MEDICARE, OTHER, SELFPAY ==
[2023-01-20 09:18] VITALS: BP 138/72; PULSE 104; O2SAT 96; BMI 20.9
--- NOTE | 2023-01-20 09:18 | MHC.OFFVIS ---
Intake Vital Signs 01/20/23 09:18 Height 4 ft 11 in Weight 103 lb 9.876 oz BMI 20.9 BP 138/72 Blood Pressure Location Lt brachial Position Sitting Pulse 104 H Pulse Source Doppler Pulse Oximetry (%) 96 Oxygen Delivery Method Room Air Intake Visit Reasons: Shortness of breath Allergies azithromycin Allergy (Severe, Verified 01/20/23 09:20) hives amoxicillin [AMOXICILLIN] Allergy (Intermediate, Verified 01/20/23 09:20) UNKNOWN doxycycline [DOXYCYCLINE] Allergy (Intermediate, Verified 01/20/23 09:20) Hives latex Allergy (Intermediate, Verified 01/20/23 09:20) Swelling Sulfa (Sulfonamide Antibiotics) [SULFA (SULFONAMIDE ANTIBIOTICS)] Allergy (Intermediate, Verified 01/20/23 09:20) HIVES HPI Shortness of breath HPI Details 73-year-old lady, former approximately 15 pack-year smoker, quit 20 years prior, followed for severe persistent asthma and environmental allergies.? She has been tried on Xolair, however she developed side effects from its use.? She is not able to afford inhaled inhaled steroid/long-acting beta agonist or short acting beta agonist either.? She has been tried on Nucala, however she denies any symptomatic improvement. Patient also complains of headache when using nebulized budesonide and albuterol. She has been relying heavily on albuterol MDI. No significant changes since prior visit. She was not able to afford Combivent. [facility] Medical History Migraine headache Hiatal hernia Migraine Irritable bowel syndrome with constipation Asthma Surgical History History of bilateral carpal tunnel release History of esophagogastroduodenoscopy (EGD) Hx of colonoscopy H/O ventral hernia repair Family History Father Diabetes Mother Cancer Social History Housing: House Patient Tobacco Use Status: Former Tobacco user Tobacco use type: Cigarette Years Smoked: 20-25 yrs e-Cigarette/Vaping Use: Never Used Second Hand Smoke Exposure: No service: No Current occupational status: retired Cognitive needs: No Hearing needs: No Vision needs: No Review of Systems Const Denies daytime sleepiness, Denies excessive sweating, Denies fatigue, Denies fever(s), Denies lethargy, Denies malaise, Denies night sweats, Denies snoring and Denies weight loss Eyes Denies blurry vision and Denies itchy eyes ENT Denies nasal congestion, Denies post nasal drip, Denies sinus pain, Denies sinus pressure and Denies other ( Thrush) Card Denies chest pain, Denies pedal edema, Denies dyspnea, Denies orthopnea and Denies paroxysmal nocturnal dyspnea Resp Reports cough, Denies hemoptysis, Denies excessive phlegm production, Denies dyspnea, Denies snoring and Denies wheezing GI Denies abdominal pain and Denies heartburn Musc Denies myalgias, Denies arthralgias and Denies joint swelling Skin/Breast Denies rash Neuro Denies memory loss and Denies seizure-like activity Psych Denies abnormal sleep pattern, Denies anxiety and Denies memory loss Endo Denies excessive sweating, Denies fatigue and Denies heat intolerance Bob/Lymph Denies easy bruising Aller/Immun Denies itchy eyes, Denies seasonal rhinorrhea and Denies wheezing Physical Exam Vital Signs: Last Vital Signs Pulse 104 H 01/20/23 09:18 BP 138/72 01/20/23 09:18 Pulse Ox 96 01/20/23 09:18 Oxygen Delivery Method Room Air 01/20/23 09:18 BMI result Body Mass Index 20.9 Const General: no acute distress and alert Nutritional Appearance: not obese Orientation/consciousness: Other orientation findings ( oriented) HEENT Head: Yes atraumatic Eyes General: appearance normal, both eyes and all related structures Sclerae: sclerae normal EOM: EOMs intact bilaterally Neck Neck: Yes supple Lymphatic: no lymphadenopathy noted Resp Effort & Inspection: normal respiratory effort and no use of accessory muscles Auscultation: clear to auscultation bilaterally Cardio Rate: regular rate Rhythm: regular rhythm Heart sounds: no gallops, no murmurs and no rubs Skin General skin exam: other ( warm) Extrem General: No clubbing, No cyanosis and No edema Assessment & Plan Assessment & Plan (1) Asthma: Code(s): J45.909 - Unspecified asthma, uncomplicated Plan: Suboptimal control as patient cannot afford inhaled corticosteroids and does not tolerate nebulized corticosteroids. Unable to afford Combivent. Switched to DuoNebs. Continue p.r.n. cough syrup. (2) Environmental allergies: Code(s): Z91.09 - Other allergy status, other than to drugs and biological substances Plan: No significant improvement on Xolair or Nucala. Will try on Singulair. Medications: New montelukast (Singulair) 10 mg PO BEDTIME 30 tabs 6RF 30 days ipratropium-albuterol 0.5 mg-3 mg(2.5 mg base)/3 mL 3 mL inhalation TID 270 mL 6RF 30 days Discontinued methylprednisolone (Medrol (Gal)) Discontinued Reason: Doctor's Order PO PER PKG DIR 21 ea 0RF Combivent Respimat 20-100 mcg/actuation (ipratropium-albuterol) Discontinued Reason: Doctor's Order 1 puff inhalation Q4H 1 ea 6RF 30 days NS Coding Level of Care Code Est Pt Level 4 (59149) Diagnoses Asthma J45.909 Environmental allergies Z91.09
== END 2023-01-20 09:35 | disposition home or self-care (01) ==
PROVIDERS: PCP Internal Medicine; Visit Provider Internal Medicine Pulmonary Disease
DX: J45.909 Unspecified asthma, uncomplicated (principal); Z91.09 Other allergy status, other than to drugs and biological substances
CPT/HCPCS: 99214

== ENCOUNTER → 2023-01-20 09:09 | Outpatient (BNVA) | payer MEDICARE, OTHER, SELFPAY | PROVIDERS: PCP Internal Medicine; Visit Provider Internal Medicine Pulmonary Disease | DX: J45.909 Unspecified asthma, uncomplicated (principal); Z91.09 Other allergy status, other than to drugs and biological substances | CPT/HCPCS: 99212 ==

== ENCOUNTER 2023-03-30 13:54 | Outpatient (AMB) | payer MEDICARE, OTHER, SELFPAY ==
--- NOTE | 2023-03-30 13:56 | A.OFFVIS_ITS ---
Intake Vital Signs 03/30/23 13:57 Height 4 ft 11 in Weight 104 lb 11.513 oz BMI 21.1 BP 108/58 L Blood Pressure Location Rt brachial Position Sitting Pulse 82 Pulse Source Doppler Pulse Oximetry (%) 97 Oxygen Delivery Method Room Air Intake Visit Reasons: Shortness of breath Allergies azithromycin Allergy (Severe, Verified 03/30/23 14:00) hives amoxicillin [AMOXICILLIN] Allergy (Intermediate, Verified 03/30/23 14:00) UNKNOWN doxycycline [DOXYCYCLINE] Allergy (Intermediate, Verified 03/30/23 14:00) Hives latex Allergy (Intermediate, Verified 03/30/23 14:00) Swelling Sulfa (Sulfonamide Antibiotics) [SULFA (SULFONAMIDE ANTIBIOTICS)] Allergy (Intermediate, Verified 03/30/23 14:00) HIVES HPI Shortness of breath HPI Details 73-year-old lady, former approximately 1 5 pack-year smoker, quit 20 years prior, followed for severe persistent asthma and environmental allergies. She has been tried on Xolair, however she developed side effects from its use. She is not able to afford inhaled inhaled steroid/long-acting beta agonist or short acting beta agonist either. She has been tried on Nucala, however she denies any symptomatic improvement. Patient also complains of headache when using nebulized budesonide and albuterol. At the last office visit she was started on Singulair, however she complains of worsening fatigue and headaches while using it. She has been using duo nebs with good control of her asthma symptoms. [facility] Medical History Migraine headache Hiatal hernia Migraine Irritable bowel syndrome with constipation Asthma Surgical History History of bilateral carpal tunnel release History of esophagogastroduodenoscopy (EGD) Hx of colonoscopy H/O ventral hernia repair Family History Father Diabetes Mother Cancer Social History Housing: House Patient Tobacco Use Status: Former Tobacco user Tobacco use type: Cigarette Years Smoked: 20-25 yrs e-Cigarette/Vaping Use: Never Used Second Hand Smoke Exposure: No service: No Current occupational status: retired Cognitive needs: No Hearing needs: No Vision needs: No Review of Systems Const Denies daytime sleepiness, Denies excessive sweating, Denies fatigue, Denies fever(s), Denies lethargy, Denies malaise, Denies night sweats, Denies snoring and Denies weight loss Eyes Denies blurry vision and Denies itchy eyes ENT Denies nasal congestion, Denies post nasal drip, Denies sinus pain, Denies sinus pressure and Denies other ( Thrush) Card Denies chest pain, Denies pedal edema, Denies dyspnea, Denies orthopnea and Denies paroxysmal nocturnal dyspnea Resp Denies cough, Denies hemoptysis, Denies excessive phlegm production, Denies dyspnea, Denies snoring and Denies wheezing GI Denies abdominal pain and Denies heartburn Musc Denies myalgias, Denies arthralgias and Denies joint swelling Skin/Breast Denies rash Neuro Denies memory loss and Denies seizure-like activity Psych Denies abnormal sleep pattern, Denies anxiety and Denies memory loss Endo Denies excessive sweating, Denies fatigue and Denies heat intolerance Bob/Lymph Denies easy bruising Aller/Immun Denies itchy eyes, Denies seasonal rhinorrhea and Denies wheezing Physical Exam Vital Signs: Last Vital Signs Pulse 82 03/30/23 13:57 BP 108/58 L 03/30/23 13:57 Pulse Ox 97 03/30/23 13:57 Oxygen Delivery Method Room Air 03/30/23 13:57 BMI result Body Mass Index 21.1 Const General: no acute distress and alert Nutritional Appearance: not obese Orientation/consciousness: Other orientation findings ( oriented) HEENT Head: Yes atraumatic Eyes General: appearance normal, both eyes and all related structures Sclerae: sclerae normal EOM: EOMs intact bilaterally Neck Neck: Yes supple Lymphatic: no lymphadenopathy noted Resp Effort & Inspection: normal respiratory effort and no use of accessory muscles Auscultation: clear to auscultation bilaterally Cardio Rate: regular rate Rhythm: regular rhythm Heart sounds: no gallops, no murmurs and no rubs Skin General skin exam: other ( warm) Extrem General: No clubbing, No cyanosis and No edema Assessment & Plan Assessment & Plan (1) Asthma: Code(s): J45.909 - Unspecified asthma, uncomplicated Plan: Now well controlled on duo nebs 2 to 3 times a day and albuterol MDI. Continue current regimen. (2) Environmental allergies: Code(s): Z91.09 - Other allergy status, other than to drugs and biological substances Plan: Unable to tolerate Singulair. Will discontinue at this time. Medications: Discontinued montelukast (Singulair) Discontinued Reason: Doctor's Order 10 mg PO BEDTIME 30 tabs 6RF 30 days Coding Level of Care Code Est Pt Level 4 (63499) Diagnoses Asthma J45.909 Environmental allergies Z91.09
[2023-03-30 13:57] VITALS: BP 108/58; PULSE 82; O2SAT 97; BMI 21.1
== END 2023-03-30 14:10 | disposition home or self-care (01) ==
PROVIDERS: PCP Internal Medicine; Visit Provider Internal Medicine Pulmonary Disease
DX: J45.909 Unspecified asthma, uncomplicated (principal); Z91.09 Other allergy status, other than to drugs and biological substances
CPT/HCPCS: 99214

== ENCOUNTER → 2023-03-30 13:54 | Outpatient (BNVA) | payer MEDICARE, OTHER, SELFPAY | PROVIDERS: PCP Internal Medicine; Visit Provider Internal Medicine Pulmonary Disease | DX: J45.909 Unspecified asthma, uncomplicated (principal); Z91.09 Other allergy status, other than to drugs and biological substances | CPT/HCPCS: 99212 ==

== ENCOUNTER 2023-06-05 11:10 | Outpatient (AMB) | payer MEDICARE, OTHER, SELFPAY ==
[2023-06-05 11:12] VITALS: BP 114/62; PULSE 84; O2SAT 96; BMI 20.6
--- NOTE | 2023-06-05 11:12 | MHC.PC.OV ---
Vital Signs 06/05/23 11:12 Height 4 ft 11 in Weight 102 lb 0.8 oz BMI 20.6 BP 114/62 Blood Pressure Location Lt brachial Position Sitting Pulse 84 Pulse Source Pulse Oximeter Pulse Oximetry (%) 96 Oxygen Delivery Method Room Air Intake Visit Reasons: Migraine, Asthma Dba Developer Required: No Allergies azithromycin Allergy (Severe, Verified 06/05/23 11:15) hives amoxicillin [AMOXICILLIN] Allergy (Intermediate, Verified 06/05/23 11:15) UNKNOWN doxycycline [DOXYCYCLINE] Allergy (Intermediate, Verified 06/05/23 11:15) Hives latex Allergy (Intermediate, Verified 06/05/23 11:15) Swelling Sulfa (Sulfonamide Antibiotics) [SULFA (SULFONAMIDE ANTIBIOTICS)] Allergy (Intermediate, Verified 06/05/23 11:15) HIVES Medication List - Last Reconciled 06/05/23 by Ashvin Gunderson MD albuterol sulfate 90 mcg/actuation (ProAir RespiClick) 2 inhalations inhalation Q4-6H PRN [id number]-[id number] 50-325-40 mg 1 tab PO Q6H PRN dicyclomine 20 mg (2 x 10 mg) PO QID hydrocodone-acetaminophen 7.5-325 mg/15 mL 15 mL PO Q4-6H PRN 30 days ipratropium-albuterol 0.5 mg-3 mg(2.5 mg base)/3 mL 3 mL inhalation TID 30 days zolpidem 5 mg PO BEDTIME PRN Tobacco use date assessed: 06/05/23 Fall risk assessment: No Falls in past year Last assessed Fall Risk: 06/05/23 Dental Screening Dental Screen Date: 12/16/22 HPI Migraine, Asthma HPI Details needs refills on her meds; has migraine H/A on rx PFSH Medical History Migraine headache Hiatal hernia Migraine Irritable bowel syndrome with constipation Asthma Surgical History History of bilateral carpal tunnel release History of esophagogastroduodenoscopy (EGD) Hx of colonoscopy H/O ventral hernia repair Family History Father Diabetes Mother Cancer Social History Housing: House Patient Tobacco Use Status: Former Tobacco user Tobacco use type: Cigarette Years Smoked: 20-25 yrs e-Cigarette/Vaping Use: Never Used Second Hand Smoke Exposure: No service: No Current occupational status: retired Cognitive needs: No Hearing needs: No Vision needs: No Questionnaire Thrive Questionnaire Date Thrive assessed: 06/05/23 I am a: Patient What is your living situation today?: I have a steady place to live Within the past 12 months, did the food you bought not last and you didn't have the money to get more?: Never true Within the past 12 months, did you worry whether your food would run out before you got money to buy more?: Never true Do you have trouble paying for medicines?: No Do you have trouble getting transportation to medical appointments?: No Do you have trouble paying your heating and electricity bill?: No Do you have trouble taking care of your child, family member or friend?: No Do you have trouble with day-to-day activities such as bathing, preparing meals, shopping, managing finances, etc.?: No Are you currently unemployed and looking for a job?: No Are you interested in more education?: No Please select the resources that you would like help with: None Currently or been in a relationship where the following occur: no concerns reported THRIVE Score: 0 AUDIT C Alcohol Use Questionnaire (AUDIT-C) 1. How often do you have a drink containing alcohol?: Never 3. How often do you have six or more drinks on one occasion?: Never Total Score: 0 Score Reviewed/Action Taken: Yes JANIS-7 AMB Questionnaire JANIS-7 Date JANIS - 7 assessed: 06/05/23 Source: Developed by Drs. Arthur Avila, Cadence Murphy, Fabian Melo and colleagues, with an educational sheng from [employer]. Review of Systems Const Denies chills, Denies headache(s) and Denies weight loss ENT Denies headache(s) Card Denies chest pain, Denies syncope, Denies irregular heart rhythm and Denies dyspnea Resp Denies chest congestion, Denies cough and Denies dyspnea GI Denies abdominal pain, Denies change in stool character, Denies nausea and Denies vomiting Musc Denies deformity and Denies joint swelling Neuro Denies syncope and Denies headache(s) Physical exam (Primary Care) Vital Signs: Last Vital Signs Pulse 84 06/05/23 11:12 BP 114/62 06/05/23 11:12 Pulse Ox 96 06/05/23 11:12 Oxygen Delivery Method Room Air 06/05/23 11:12 BMI result Body Mass Index 20.6 Tobacco/Smoking Status: Tobacco use Status Tobacco use date assessed 06/05/23 06/05/23 11:15 Patient Tobacco Use Status Former Tobacco user 06/05/23 11:15 Tobacco use type Cigarette 06/05/23 11:15 e-Cigarette/Vaping Use Never Used 06/05/23 11:15 Thrive Assessment: Date of Thrive Assessment Date Thrive assessed 06/05/23 06/05/23 11:15 Currently or been in a relationship where the following occur: no concerns reported Const General: cooperative, comfortable, no acute distress and alert Neck Neck: Yes no lymphadenopathy Thyroid: Thyroid normal Resp Effort & Inspection: normal respiratory effort Auscultation: clear to auscultation bilaterally Percussion: percussion normal Cardio Jugular venous distension: no JVD Palpation: normal PMI Rate: regular rate Rhythm: regular rhythm Heart sounds: S1 normal heart sound present and S2 normal heart sound present GI Inspection: Yes normal to inspection Palpation (GI): No hepatosplenomegaly present Skin General skin exam: no rashes or lesions noted Extrem General: Yes no clubbing, cyanosis or edema Assessment and Plan Assessment & Plan (1) Migraine headache: Code(s): G43.909 - Migraine, unspecified, not intractable, without status migrainosus Plan: rx sent Medications: Refilled lghvvmwhfm-[id number] 50-325-40 mg 1 tab PO Q6H PRN 90 tabs 5RF Headache Coding Level of Care Code Est Pt Level 3 (66032) Diagnoses Migraine headache G43.909
== END 2023-06-05 11:31 | disposition home or self-care (01) ==
PROVIDERS: PCP Internal Medicine; Visit Provider Internal Medicine
DX: G43.909 Migraine, unspecified, not intractable, without status migrainosus (principal)
CPT/HCPCS: 99213

== ENCOUNTER 2023-10-20 08:55 | Outpatient (REF) | payer MEDICARE, OTHER, SELFPAY ==
--- NOTE | ~2023-10-20 | MM_ITS ---
EXAMINATION: BONE DENSITOMETRY CLINICAL INDICATION: Osteopenia. COMPARISON: Previous BD dated 10/14/2021 and baseline BD dated 01/02/2014. TECHNIQUE: Using a [employer] DXA System (software version: 13.1) manufactured by [employer], dual-energy x-ray absorptiometry was performed of the lumbar spine and left hip. The images are of good technical quality. Summary results are attached. FINDINGS: LEFT FEMUR, NECK: Current: BMD 0.665 g/cm2, Z-score -0.4, T-score -2.7, osteoporosis. Prior: BMD 0.677 g/cm2. Baseline: BMD 0.674 g/cm2. LEFT FEMUR, TOTAL: Current: BMD 0.628 g/cm2, Z-score -0.9, T-score -3.0, osteoporosis, 1.5% increase from previous, 10.7% decrease from baseline (<5% change is not significant). Prior: BMD 0.619 g/cm2. Baseline: BMD 0.703 g/cm2. AP SPINE L1-L4: Current: BMD 0.821 g/cm2, Z-score -0.6, T-score -3.0, osteoporosis, 0.4% increase from previous, 1.6% decrease from baseline (<5% change is not significant). Prior: BMD 0.818 g/cm2. Baseline: BMD 0.834 g/cm2. IDENTIFIED RISK FACTORS: Early menopause, secondary osteoporosis. HISTORY OF FRACTURE: None listed. MEDICATIONS: Multivitamin. MM/XR DEXA axial skeleton IMPRESSION: 1. DIAGNOSIS: Osteoporosis based on the lowest T-score value of -3.0 in the total femur and lumbar spine applying World Health Organization criteria. 2. 10-YEAR FRACTURE RISK PREDICTION, FRAX: According to the guidelines, FRAX calculation should only be performed on patients in the osteopenia bone density category. Therefore, FRAX was not performed on this patient. 3. Treatment Recommendations: NOF guidelines recommend consideration for treatment in postmenopausal women and men age 50 and older presenting with the following: -A hip or vertebral (clinical or morphometric) fracture. -T-score less than or equal to -2.5 at the femoral neck or spine after appropriate evaluation to exclude secondary causes. -Low bone mass at the hip or spine and a 10-year fracture probability by FRAX of greater than or equal to 3% for hip fracture or greater than or equal to 20% for major osteoporotic fracture based on the [place] adapted WHO algorithm. 4. Other Recommendations: All treatment decisions require clinical judgment and consideration of individual patient factors, including patient preferences, comorbidities, previous drug use, risk factors not captured in the FRAX model (e.g. frailty, falls, vitamin D deficiency, increased bone turnover, interval significant decline in bone density) and possible under or overestimation of fracture risk by FRAX. Additional medical evaluation for secondary cause of low bone mineral density may be appropriate. FUTURE SCAN RECOMMENDATION: People with diagnosed cases of osteoporosis or at high risk for fracture should have regular bone mineral density tests. For patients eligible for Medicare, routine testing is allowed once every 2 years. The testing frequency can be increased to one year for patients who have rapidly progressing disease, those who are receiving or discontinuing medical therapy to restore bone mass, or have additional risk factors. Electronically signed by: Ramon Sanchez MD 10/24/2023 11:17 AM EDT
== END 2023-10-20 08:56 | disposition home or self-care (01) ==
LOC: HO.MAMMO 08:55
PROVIDERS: PCP Internal Medicine; Visit Provider Internal Medicine
DX: M81.0 Age-related osteoporosis without current pathological fracture (principal)
CPT/HCPCS: 77080

== ENCOUNTER 2023-10-25 14:27 | Outpatient (AMB) | payer MEDICARE, OTHER, SELFPAY ==
[2023-10-25 14:27] VITALS: BP 107/60; PULSE 87; O2SAT 99; BMI 21.1
--- NOTE | 2023-10-25 14:27 | MHC.OFFVIS ---
Vital Signs 10/25/23 14:27 Height 4 ft 11 in Weight 104 lb 11.513 oz BMI 21.1 BP 107/60 Blood Pressure Location Rt brachial Position Sitting Pulse 87 Pulse Source Doppler Pulse Oximetry (%) 99 Oxygen Delivery Method Room Air Intake Visit Reasons: Shortness of breath Allergies azithromycin Allergy (Severe, Verified 06/05/23 11:15) hives amoxicillin [AMOXICILLIN] Allergy (Intermediate, Verified 06/05/23 11:15) UNKNOWN doxycycline [DOXYCYCLINE] Allergy (Intermediate, Verified 06/05/23 11:15) Hives latex Allergy (Intermediate, Verified 06/05/23 11:15) Swelling Sulfa (Sulfonamide Antibiotics) [SULFA (SULFONAMIDE ANTIBIOTICS)] Allergy (Intermediate, Verified 06/05/23 11:15) HIVES HPI HPI Shortness of breath: Details: 73-year-old lady, former approximately 15 pack-year smoker, quit 20 years prior, followed for severe persistent asthma and environmental allergies. She has been tried on Xolair, however she developed side effects from its use. She is not able to afford inhaled inhaled steroid/long-acting beta agonist or short acting beta agonist either. She has been tried on Nucala, however she denies any symptomatic improvement. Patient also complains of headache when using nebulized budesonide and albuterol or Singulair. She has been using albuterol MDI with good control of her symptoms. [facility] Medical History Migraine headache Hiatal hernia Migraine Irritable bowel syndrome with constipation Asthma Surgical History History of bilateral carpal tunnel release History of esophagogastroduodenoscopy (EGD) Hx of colonoscopy H/O ventral hernia repair Family History Father Diabetes Mother Cancer Social History Housing: House Patient Tobacco Use Status: Former Tobacco user Tobacco use type: Cigarette Years Smoked: 20-25 yrs e-Cigarette/Vaping Use: Never Used Second Hand Smoke Exposure: No service: No Current occupational status: retired Cognitive needs: No Hearing needs: No Vision needs: No Review of Systems Const Denies daytime sleepiness, Denies excessive sweating, Denies fatigue, Denies fever(s), Denies lethargy, Denies malaise, Denies night sweats, Denies snoring and Denies weight loss Eyes Denies blurry vision and Denies itchy eyes ENT Denies nasal congestion, Denies post nasal drip, Denies sinus pain, Denies sinus pressure and Denies other ( Thrush) Card Denies chest pain, Denies pedal edema, Denies dyspnea, Denies orthopnea and Denies paroxysmal nocturnal dyspnea Resp Denies cough, Denies hemoptysis, Denies excessive phlegm production, Denies dyspnea, Denies snoring and Denies wheezing GI Denies abdominal pain and Denies heartburn Musc Denies myalgias, Denies arthralgias and Denies joint swelling Skin/Breast Denies rash Neuro Denies memory loss and Denies seizure-like activity Psych Denies abnormal sleep pattern, Denies anxiety and Denies memory loss Endo Denies excessive sweating, Denies fatigue and Denies heat intolerance Bob/Lymph Denies easy bruising Aller/Immun Denies itchy eyes, Denies seasonal rhinorrhea and Denies wheezing Physical Exam Vital Signs: Last Vital Signs Pulse 87 10/25/23 14:27 BP 107/60 10/25/23 14:27 Pulse Ox 99 10/25/23 14:27 Oxygen Delivery Method Room Air 10/25/23 14:27 BMI result Body Mass Index 21.1 Const General: no acute distress and alert Nutritional Appearance: not obese Orientation/consciousness: Other orientation findings ( oriented) HEENT Head: Yes atraumatic Eyes General: appearance normal, both eyes and all related structures Sclerae: sclerae normal EOM: EOMs intact bilaterally Neck Neck: Yes supple Lymphatic: no lymphadenopathy noted Resp Effort & Inspection: normal respiratory effort and no use of accessory muscles Auscultation: clear to auscultation bilaterally Cardio Rate: regular rate Rhythm: regular rhythm Heart sounds: no gallops, no murmurs and no rubs Skin General skin exam: other ( warm) Extrem General: No clubbing, No cyanosis and No edema Assessment & Plan Assessment & Plan (1) Asthma: Code(s): J45.909 - Unspecified asthma, uncomplicated Category: Medical Plan: Well controlled on albuterol MDI. Continue current regimen. (2) Environmental allergies: Code(s): Z91.09 - Other allergy status, other than to drugs and biological substances Category: Medical Plan: Intolerant of Singulair. Continue OTC antihistamines. Medications: Refilled albuterol sulfate 90 mcg/actuation (ProAir RespiClick) 2 inhalations inhalation Q4-6H PRN 1 insert 3RF for wheezing ipratropium-albuterol 0.5 mg-3 mg(2.5 mg base)/3 mL 3 mL inhalation TID 30 days 270 mL 6RF Coding Level of Care Code Est Pt Level 4 (90739) Diagnoses Asthma J45.909 Environmental allergies Z91.09
== END 2023-10-25 14:42 | disposition home or self-care (01) ==
PROVIDERS: PCP Internal Medicine; Visit Provider Internal Medicine Pulmonary Disease
DX: J45.909 Unspecified asthma, uncomplicated (principal); Z91.09 Other allergy status, other than to drugs and biological substances
CPT/HCPCS: 99214

== ENCOUNTER → 2023-10-25 14:27 | Outpatient (BNVA) | payer MEDICARE, OTHER, SELFPAY | PROVIDERS: PCP Internal Medicine; Visit Provider Internal Medicine Pulmonary Disease | DX: J45.909 Unspecified asthma, uncomplicated (principal); Z91.09 Other allergy status, other than to drugs and biological substances | CPT/HCPCS: 99212 ==

== ENCOUNTER 2023-12-15 10:51 | Outpatient (AMB) | payer MEDICARE, OTHER, SELFPAY ==
[2023-12-15 10:52] VITALS: BP 114/62; PULSE 62; O2SAT 98; BMI 20.8
--- NOTE | 2023-12-15 10:52 | MHC.PC.OV ---
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 Required: No Accompanied by: Self / Same As Patient Allergies azithromycin Allergy (Severe, Verified 12/15/23 10:53) hives amoxicillin [AMOXICILLIN] Allergy (Intermediate, Verified 12/15/23 10:53) UNKNOWN doxycycline [DOXYCYCLINE] Allergy (Intermediate, Verified 12/15/23 10:53) Hives latex Allergy (Intermediate, Verified 12/15/23 10:53) Swelling Sulfa (Sulfonamide Antibiotics) [SULFA (SULFONAMIDE ANTIBIOTICS)] Allergy (Intermediate, Verified 12/15/23 10:53) HIVES Medication List - Last Reconciled 12/18/23 by Ashvin Gunderson MD albuterol sulfate 90 mcg/actuation (ProAir RespiClick) 2 inhalations inhalation Q4-6H PRN fhcoomwula-cidvuzgdexlac-ldgd 50-325-40 mg 1 tab PO Q6H PRN dicyclomine 20 mg (2 x 10 mg) PO QID hydrocodone-acetaminophen 7.5-325 mg/15 mL 15 mL PO Q4-6H PRN 30 days ipratropium-albuterol 0.5 mg-3 mg(2.5 mg base)/3 mL 3 mL inhalation TID 30 days zclnzqsl-pnpetpxsa-KI 3.5-10,000-1 mg/mL-unit/mL-% 4 drps otic (ears) Q8H zolpidem 5 mg PO BEDTIME PRN Tobacco use date assessed: 06/05/23 Fall risk assessment: No Falls in past year Last assessed Fall Risk: 12/15/23 Dental Screening Dental Screen Date: 12/15/23 Did you have a dental visit in the last 12 months?: No Did you have a dental problem in the last 6 months where you did not have access to dental care?: No Was dental information given to patient?: Patient has dentist HPI Trembling and blood sugar level HPI Details anxiety and trembling; worried about her BS [facility] Medical History Migraine headache Hiatal hernia Migraine Irritable bowel syndrome with constipation Asthma Surgical History History of bilateral carpal tunnel release History of esophagogastroduodenoscopy (EGD) Hx of colonoscopy H/O ventral hernia repair Family History Father Diabetes Mother Cancer Social History Housing: House Patient Tobacco Use Status: Former Tobacco user Tobacco use type: Cigarette Years Smoked: 20-25 yrs e-Cigarette/Vaping Use: Never Used Second Hand Smoke Exposure: No service: No Current occupational status: retired Cognitive needs: No Hearing needs: No Vision needs: No Questionnaire PHQ-9 Over the last 2 weeks, how often have you been bothered by any of the following problems? 1. Little interest or pleasure in doing things: not at all 2. Feeling down, depressed, or hopeless: not at all 3. Trouble falling or staying asleep, or sleeping too much: not at all 4. Feeling tired or having little energy: not at all 5. Poor appetite or overeating: not at all 6. Feeling bad about yourself - or that you are a failure or have let yourself or your family down: not at all 7. Trouble concentrating on things, such as reading the newspaper or watching television: not at all 8. Moving or speaking so slowly that other people could have noticed. Or the opposite - being so fidgety or restless that you have been moving around a lot more than usual: not at all 9. Thoughts that you would be better off or of hurting yourself in some way: not at all Total score: 0 Depression Screening Interpretation: Negative Depression Screening Done: Yes 14438 - PHQ-9 Billing: Yes Source: Developed by Drs. Arthur Avila, Cadence Murphy, Fabian Melo and colleagues, with an educational sheng from [employer]. Thrive Questionnaire Date Thrive assessed: 06/05/23 AUDIT C Alcohol Use Questionnaire (AUDIT-C) 1. How often do you have a drink containing alcohol?: Never 3. How often do you have six or more drinks on one occasion?: Never Total Score: 0 Score Reviewed/Action Taken: Yes JANIS-7 AMB Questionnaire AJNIS-7 Date JANIS - 7 assessed: 06/05/23 Source: Developed by Drs. Arthur Avila, Cadence Murphy, Fabian Melo and colleagues, with an educational sheng from [employer]. Review of Systems Const Denies chills, Denies headache(s) and Denies weight loss ENT Denies headache(s) Card Denies chest pain, Denies syncope, Denies irregular heart rhythm and Denies dyspnea Resp Denies chest congestion, Denies cough and Denies dyspnea GI Denies abdominal pain, Denies change in stool character, Denies nausea and Denies vomiting Musc Denies deformity and Denies joint swelling Neuro Denies syncope and Denies headache(s) Physical exam (Primary Care) Vital Signs: Last Vital Signs Pulse 62 12/15/23 10:52 BP 114/62 12/15/23 10:52 Pulse Ox 98 12/15/23 10:52 Oxygen Delivery Method Room Air 12/15/23 10:52 BMI result Body Mass Index 20.8 Tobacco/Smoking Status: Tobacco use Status Tobacco use date assessed 06/05/23 12/15/23 10:58 Patient Tobacco Use Status Former Tobacco user 12/15/23 10:58 Tobacco use type Cigarette 12/15/23 10:58 e-Cigarette/Vaping Use Never Used 12/15/23 10:58 PHQ-9: PHQ-9 Score PHQ-9: Total score 0 12/15/23 11:10 Depression Screening Interpretation: Negative Thrive Assessment: Date of Thrive Assessment Date Thrive assessed 06/05/23 12/15/23 10:58 Const General: cooperative, comfortable, no acute distress and alert Neck Neck: Yes no lymphadenopathy Thyroid: Thyroid normal Resp Effort & Inspection: normal respiratory effort Auscultation: clear to auscultation bilaterally Percussion: percussion normal Cardio Jugular venous distension: no JVD Palpation: normal PMI Rate: regular rate Rhythm: regular rhythm Heart sounds: S1 normal heart sound present and S2 normal heart sound present GI Inspection: Yes normal to inspection Palpation (GI): No hepatosplenomegaly present Skin General skin exam: no rashes or lesions noted Extrem General: Yes no clubbing, cyanosis or edema Office Procedures Flu Questionnaire Does the patient have a severe egg allergy?: No Does the patient have severe life threatening allergies?: No Does the patient have a fever or illness today?: No Has the patient ever had Guillain-Byron Syndrome?: No Has the patient ever had any past reaction to a flu shot?: No Immunizations Fluarix Triv [id number] (PF) 45 mcg (15 mcg x 3)/0.5 mL IM syringe Performing Provider: Ashvin Gunderson MD [facility] Administered by: Jeannie Tobin RN on 12/15/23 11:09 Dose Route Admin Location Dispensed Lot Number Expiration Date NDC Joint Machine Operator 0.5 mL IM Left Deltoid 0.5 mL [id number] 08/19/24 14990-117-13 SysClass VIS Given Date VIS Provided VIS Publication Date 12/15/23 Single Vaccine 20 Eligibility Eligibility Date Funding Source Not [facility] Eligible 12/15/23 Private Coding Level of Care Code Est Pt Level 3 (82680) Diagnoses Spells of trembling R25.1 Assessment & Plan Assessment & Plan (1) Spells of trembling: Code(s): R25.1 - Tremor, unspecified Plan: order fasting labs Orders: Orders Influenza [id number] Immunization 12/15/23 Z23 - Encounter for immunization
== END 2023-12-15 11:09 | disposition home or self-care (01) ==
PROVIDERS: PCP Internal Medicine; Visit Provider Internal Medicine
DX: R25.1 Tremor, unspecified (principal)

== ENCOUNTER → 2023-12-15 10:51 | Outpatient (BNVA) | payer MEDICARE, OTHER, SELFPAY | PROVIDERS: PCP Internal Medicine; Visit Provider Internal Medicine | DX: Z23 Encounter for immunization (principal); R25.1 Tremor, unspecified | CPT/HCPCS: 90471; 90656; 96127; 99212 ==

== ENCOUNTER 2023-12-22 09:39 | Outpatient (REF) | payer MEDICARE, OTHER, SELFPAY ==
[2023-12-22 10:19] LABS: MANUAL DIFF FLAG NO
[2023-12-22 10:58] LABS: Basophils Absolute Auto 0.1 X10*3/uL (0.0-0.2); Eosinophils Absolute Auto 0.3 X10*3/uL (0.0-0.4); Eosinophils Percent Auto 3.6 % (0-4); Hematocrit 42.7 % (37.0-47.0); Hemoglobin 14.8 g/dl (12.0-16.0); Imm Gran Abs Auto 0.02 X10*3/uL (0.00-0.03); Imm Gran Pct Auto 0.3 % (0.0-0.4); Lymphocytes Absolute Auto 2.2 X10*3/uL (1.2-4.9); Lymphocytes Percent Auto 30.1 % (20-40); Mean Corpuscular HGB Conc 34.7 g/dl (31.0-35.0); Mean Corpuscular Hemoglobin 31.7 pg (27.0-33.0); Mean Corpuscular Volume 91.4 fL (80.0-98.0); Mean Platelet Volume 8.8 fL (9.4-12.3); Monocytes Absolute Auto 0.7 X10*3/uL (0.1-1.2); Monocytes Percent Auto 9.1 % (2-11); Neutrophils Absolute Auto 4.1 x10*3/uL (2.0-8.3); Neutrophils Percent Auto 55.9 % (45-73); Platelet Count 366 X10*3/uL (160-400); Red Blood Count 4.67 X10*6/uL (4.20-5.50); Red Cell Distribution Width 11.9 % (11.0-16.0); White Blood Count 7.3 X10*3/uL (4.8-10.8)
[2023-12-22 12:09] LABS: Alanine Aminotransferase 14 U/L (0-31); Albumin Level 4.4 g/dL (3.5-5.0); Alkaline Phosphatase 113 U/L (39-117); Anion Gap 14 (12-20); Aspartate Amino Transferase 22 U/L (5-31); Bilirubin Total 0.5 mg/dL (0.0-1.0); Blood Urea Nitrogen 6 mg/dL (9-16); Calcium 10.2 mg/dL (8.4-10.2); Carbon Dioxide 25 mmol/L (22-29); Chloride 102 mmol/L (96-108); Cholesterol 269 mg/dL (<200); Estimated Glomerular Filt Rate > 60; Glucose Fasting 108 mg/dL (60-99); HDL Cholesterol 73 mg/dL (>40); LDL Cholesterol Calculated 172 mg/dL (<100); Potassium 4.5 mmol/L (3.3-5.1); Sodium 136 mmol/L (135-145); Thyroid Stimulating Hormone 1.36 uIU/mL (0.32-4.0); Total Protein 7.4 g/dL (6.5-8.0); Triglycerides 121 mg/dL (<150)
== END 2023-12-22 09:40 | disposition home or self-care (01) ==
LOC: HO.LAB 09:39
PROVIDERS: PCP Internal Medicine; Visit Provider Internal Medicine
DX: Z13.0 Encounter for screening for diseases of the blood and blood-forming organs and certain disorders involving the immune mechanism (principal); Z13.220 Encounter for screening for lipoid disorders; Z13.29 Encounter for screening for other suspected endocrine disorder; Z13.9 Encounter for screening, unspecified
CPT/HCPCS: 36415; 80053; 80061; 84443; 85025

== ENCOUNTER 2024-04-19 10:22 | Outpatient (AMB) | payer MEDICARE, OTHER, SELFPAY ==
[2024-04-19 10:24] VITALS: BP 112/56; PULSE 90; TEMP 36.2; O2SAT 95; BMI 20.4
--- NOTE | 2024-04-19 10:24 | A.OFFPC_ITS ---
Vital Signs 04/19/24 10:24 Height 4 ft 11 in Weight 101 lb BMI 20.4 BP 112/56 L Blood Pressure Location Rt brachial Position Sitting Pulse 90 Pulse Source Pulse Oximeter Temp 97.1 F Temp Source Temporal Artery Scan Pulse Oximetry (%) 95 Oxygen Delivery Method Room Air Intake Visit Reasons: follow up Associate Director Qa Required: No Accompanied by: Self / Same As Patient Allergies azithromycin Allergy (Severe, Verified 04/19/24 10:27) hives amoxicillin [AMOXICILLIN] Allergy (Intermediate, Verified 04/19/24 10:27) UNKNOWN doxycycline [DOXYCYCLINE] Allergy (Intermediate, Verified 04/19/24 10:27) Hives latex Allergy (Intermediate, Verified 04/19/24 10:27) Swelling Sulfa (Sulfonamide Antibiotics) [SULFA (SULFONAMIDE ANTIBIOTICS)] Allergy (Intermediate, Verified 04/19/24 10:27) HIVES Tobacco use date assessed: 04/19/24 Fall risk assessment: No Falls in past year Last assessed Fall Risk: 04/19/24 Dental Screening Dental Screen Date: 04/19/24 Did you have a dental visit in the last 12 months?: Yes Did you have a dental problem in the last 6 months where you did not have access to dental care?: No Was dental information given to patient?: Patient has dentist HPI follow up HPI Details migraine headaches; compliant with meds [facility] Medical History Migraine headache Hiatal hernia Migraine Irritable bowel syndrome with constipation Asthma Surgical History History of bilateral carpal tunnel release History of esophagogastroduodenoscopy (EGD) Hx of colonoscopy H/O ventral hernia repair Family History Father Diabetes Mother Cancer Social History Housing: House Patient Tobacco Use Status: Former Tobacco user Tobacco use type: Cigarette Years Smoked: 20-25 yrs e-Cigarette/Vaping Use: Never Used Second Hand Smoke Exposure: No service: No Current occupational status: retired Cognitive needs: No Hearing needs: No Vision needs: No Questionnaire PHQ-9 Over the last 2 weeks, how often have you been bothered by any of the following problems? 1. Little interest or pleasure in doing things: not at all 2. Feeling down, depressed, or hopeless: not at all 3. Trouble falling or staying asleep, or sleeping too much: not at all 4. Feeling tired or having little energy: not at all 5. Poor appetite or overeating: not at all 6. Feeling bad about yourself - or that you are a failure or have let yourself or your family down: not at all 7. Trouble concentrating on things, such as reading the newspaper or watching television: not at all 8. Moving or speaking so slowly that other people could have noticed. Or the opposite - being so fidgety or restless that you have been moving around a lot more than usual: not at all 9. Thoughts that you would be better off or of hurting yourself in some way: not at all Total score: 0 Depression Screening Interpretation: Negative Depression Screening Done: Yes 87831 - PHQ-9 Billing: Yes Source: Developed by Drs. Arthur Avila, Cadence Murphy, Fabian Melo and colleagues, with an educational sheng from [employer]. Thrive Questionnaire Date Thrive assessed: 04/19/24 I am a: Patient What is your living situation today?: I have a steady place to live Within the past 12 months, did the food you bought not last and you didn't have the money to get more?: Never true Within the past 12 months, did you worry whether your food would run out before you got money to buy more?: Never true Do you have trouble paying for medicines?: No Do you have trouble getting transportation to medical appointments?: No Do you have trouble paying your heating and electricity bill?: No Do you have trouble taking care of your child, family member or friend?: No Do you have trouble with day-to-day activities such as bathing, preparing meals, shopping, managing finances, etc.?: No Are you currently unemployed and looking for a job?: No Are you interested in more education?: No Please select the resources that you would like help with: None Currently or been in a relationship where the following occur: No concerns reported THRIVE Score: 0 AUDIT C Alcohol Use Questionnaire (AUDIT-C) 1. How often do you have a drink containing alcohol?: Never 3. How often do you have six or more drinks on one occasion?: Never Total Score: 0 Score Reviewed/Action Taken: Yes JANIS-7 AMB Questionnaire JANIS-7 Date JANIS - 7 assessed: 04/19/24 Feeling nervous, anxious, or on edge: 0 = Not at all Not being able to stop or control worryin = Not at all Worrying too much about different things: 0 = Not at all Trouble relaxin = Not at all Being so restless that it is hard to sit still: 0 = Not at all Becoming easily annoyed or irritable: 0 = Not at all Feeling afraid as if something awful might happen: 0 = Not at all Total JANIS-7 score (0-4 normal; 5-9 mild; 10-14 moderate; 15-21 severe): 0 Source: Developed by Drs. Arthur Avila, Cadence Murphy, Fabian Melo and colleagues, with an educational sheng from [employer]. JANIS-7 Assessment Billing JANIS-7 Assessment Tool: JANIS-7 Assessment 41112 Review of Systems Const Denies chills, Denies headache(s) and Denies weight loss ENT Denies headache(s) Card Denies chest pain, Denies syncope, Denies irregular heart rhythm and Denies dyspnea Resp Denies chest congestion, Denies cough and Denies dyspnea GI Denies abdominal pain, Denies change in stool character, Denies nausea and Denies vomiting Musc Denies deformity and Denies joint swelling Neuro Denies syncope and Denies headache(s) Physical exam (Primary Care) Vital Signs: Last Vital Signs Temp 97.1 F 04/19/24 10:24 Pulse 90 04/19/24 10:24 BP 112/56 L 04/19/24 10:24 Pulse Ox 95 04/19/24 10:24 Oxygen Delivery Method Room Air 04/19/24 10:24 BMI result Body Mass Index 20.4 Tobacco/Smoking Status: Tobacco use Status Tobacco use date assessed 04/19/24 04/19/24 10:29 Patient Tobacco Use Status Former Tobacco user 04/19/24 10:26 Tobacco use type Cigarette 04/19/24 10:26 e-Cigarette/Vaping Use Never Used 04/19/24 10:26 PHQ-9: PHQ-9 Score PHQ-9: Total score 0 04/19/24 10:29 Depression Screening Interpretation: Negative Thrive Assessment: Date of Thrive Assessment Date Thrive assessed 04/19/24 04/19/24 10:29 Currently or been in a relationship where the following occur: No concerns reported Const General: cooperative, comfortable, no acute distress and alert Neck Neck: Yes no lymphadenopathy Thyroid: Thyroid normal Resp Effort & Inspection: normal respiratory effort Auscultation: clear to auscultation bilaterally Percussion: percussion normal Cardio Jugular venous distension: no JVD Palpation: normal PMI Rate: regular rate Rhythm: regular rhythm Heart sounds: S1 normal heart sound present and S2 normal heart sound present GI Inspection: Yes normal to inspection Palpation (GI): No hepatosplenomegaly present Skin General skin exam: no rashes or lesions noted Extrem General: Yes no clubbing, cyanosis or edema Coding Level of Care Code Est Pt Level 3 (60667) Diagnoses Migraine headache G43.909 Additional Codes JANIS-7 Assessment Billing - JANIS-7 Assessment Tool: JANIS-7 Assessment 35193 ([id number]) PHQ-9 - 88163 - PHQ-9 Billing: Yes ([id number]) Assessment & Plan Assessment & Plan (1) Migraine headache: Code(s): G43.909 - Migraine, unspecified, not intractable, without status migrainosus Category: Medical Plan: stable; same rx
--- OUTSIDE RECORDS SUMMARY | 2024-04-19 11:41 | XMS_ITS | Patient Health Record ---
Author Organization [facility] Address [address] [place] [address] Care Team Providers Care Creative Services Writer Name Role Phone Ashvin Gunderson MD Primary Care Provider Arthur Crump Unavailable [phone] Pat Bryant Unavailable Unavailable ALLERGIES Allergen (clinical drug ingredient) Drug/Non Drug Allergy documented on EMR Reaction Allergy Type Onset Date Status doxycycline Doxycycline Unknown Drug Allergy Act reshma Sulfa Unknown Drug Allergy Active Latex Gloves Unknown Drug Allergy Acti ve amoxicillin Amoxicillin Unknown Drug Allergy Act reshma REASON FOR REFERRAL No Information MEDICATIONS Medication SIG (Take, Route, Frequency, Duration) Notes Start Date End Date Status Promethazine HCl Act reshma Dicyclomine HCl 10 MG 1-2 capsules Orall y Four times a day prn abdominal bloating/cramps/discomfort 07/24/2015 Activ e Ambien Active ProAir HFA PRN Active Zolpidem Tartrate 5 MG (Schedule IV Drug ) TAKE 1 TABLET BY MOUTH AT BEDTIME NEEDED Oral for 30 Active Kmhzltebsr-[id number]-Hwqlkcpe Active Albuterol PRN Active IMMUNIZATIONS Vaccine Route Administration Date Status Comme nts Influenza Unknown 10/22/2019 Administered Influenza Unknown 10/21/2020 Administered SOCIAL HISTORY Sex Assigned At : Social History Observation Description Sex Assigned At Unknown PROBLEMS Problem Type ICD Code Onset Dates Problem Status W/U Status Risk SNOMED Code Notes Problem Rectal bleeding (K62.5) Active confirmed Rectal bleeding (98781616) Problem Encounter for screening for malignant neoplasm of colon (Z12.11) Active confirmed 594594267 Problem History of adenomatous polyp of colon (Z86.010) Active confirmed 232683014 Problem Personal history of colonic polyps (Z86.010) Active confirmed History of polyp of colon (situation) (575677077) Problem Diverticulosis of large intestine without perforation or abscess without bleeding (K57.30) Active confirmed Diverticul ar disease of colon (475821782) Problem Encounter for screening for malignant neoplasm of rectum (Z12.12) Active confirmed Screening for malignant neoplasm of rectum (698178242) Problem Gas (R14.3) Active confirmed 079998177 Problem Irritable bowel syndrome with constipation (K58.1) Active confirmed 695118078 Problem Acute diarrhea (R19.7) Active confirmed Acute diarrhea (992545194) PLAN OF TREATMENT Future Test Test Name Order Date UPPER GI ENDOSCOPY 07/24/2015 COLONOSCOPY 07/24/2015 COLONOSCOPY 07/07/2020 Insurance Providers Payer Name Payer Address Payer Phone Subscriber Number Group Number Insured Name Patient Relationship to Insured Coverage Start Date Coverage End Date MEDICARE OF [place] [address] [place] [address] [id number] JESSE SOLANO Self - patient is the insured [facility] [address] [place] [phone] [id number] JESSE SOLANO Self - patient is the insured MEDICAL (GENERAL) HISTORY Medical History History ICD Code Denies ID,DM,CVA,renal disease Allergies Asthma IBS--constipation Headaches--Migraines--gets B otox injections from her neurologist, Dr. Lal EGD 09/2015--small hiatal her bill--normal duodenal biopsies, no esophagitis, no Dodge's Colonoscopy 09/2015 with 1 sm all hyperplastic polyp and 1 small tubular adenoma Negative colonoscopy in 08/2020 Surgical History Surgery Date(Month/Year) Bilateral carpal tunnel release Hernia repair--umbilical
--- OUTSIDE RECORDS SUMMARY | 2024-04-19 11:41 | XMS_ITS | Data Portability ---
Author Organization [facility], [facility] Address [address] [place] [address] Care Team Providers Care Systems Technician Name Role Phone CHAIM CANTU Referring Provider [phone] CHAIM CANTU Primary Care Provider Assessment No assessment recorded. Plan of Treatment Reminders Order Date Submit Date Provider Last Modified By Organization Details Last Modified Time Details Appointments RECHECK 15 2024 11:30A M Clifford Chaparro MD Not available Not available Not available Lab None recorded . Referral None recorded . Procedures None recorded . Surgeries Dequerva in's release (SURG) 2023 025 [email or web address] [place], [address], [facility], [place], [address], 03/08/2024 14:32:39 Imaging None recorded . Medication Orders None recorded . Patient TargetsNo targets recorded. Patient InstructionsNo instructions recorded. Reason for Referral None Reported. Procedures Surgical History Date Name Laterality Status Provider Name and Address Organization Details Recorded Time 5 JZCelestone Hand Inj completed Clifford Chaparro MD [address] [facility], [place], [address], [facility] 03/04/2024 11:31:48 4 JZCelestone Wrist Tendon Inj completed Clifford Chaparro MD [address], [place], [address], [facility] 10/17/2023 16:54:26 4 JZCelestone Hand Inj completed Clifford Chaparro MD [address], [place], [address], [facility] 07/25/2023 07:44:12 4 JZCelestone Wrist Tendon Inj completed Clifford Chaparro MD [address] [facility], [place], [address], [facility] 07/25/2023 07:43:22 4 JZWrist Joint Inj Celestone completed Clifford Chaparro MD [address] [facility], [place], [address], [facility] 07/25/2023 07:46:07 4 JZCelestone Wrist Tendon Inj completed Clifford Chaparro MD [address] [facility], [place], [address], [facility] 07/25/2023 15:28:48 4 JZCelestone Wrist Tendon Inj completed Clifford Chaparro MD [address] [facility], [place], [address], [facility] 05/27/2023 07:18:26 Imaging Results None recorded. Procedure Notes None recorded. Medical Equipment None Reported. Allergies Allergen ID Allergen Name Allergen Category Reaction Reaction Severity Criticality Documentation Date Start Date Code Code System Note Provider Name and Address Organization Details Recorded Time [id number] amoxicill in medicatio n Not available Not available Not available 05/23/2023 723 RxNorm YASH OMALLEY [facility] 14:23:05 074206 sulfadiaz ine medicatio n Not available Not available Not available 05/23/2023 44764 RxNorm YASH OMALLEY [facility], [facility] 14:23:12 Medications Name Sig Start Date Stop Date Status Note LastModified by Organization Details LastModified Time ipratropium 0.5 mg-albuterol 3 mg (2.5 mg base)/3 mL nebulization soln 3 ML INHALED EVERY 4 TO 6 HOURS NEEDED FOR WHEEZING FOR 30 DAYS active Not Available Not Available No t Available butalbital-cecy taminophen-caf feine 50 mg-325 mg-40 mg tablet TAKE 1 TABLET BY MOUTH EVERY 6 HOURS NEEDED HEADACHE active Not Available Not Available No t Available montelukast 10 mg tablet TAKE 1 TABLET BY MOUTH EVERYDAY AT BEDTIME active Not Available Not Available No t Available zolpidem 5 mg tablet TAKE 1 TABLET BY MOUTH EVERY DAY AT BEDTIME NEEDED SLEEP active Not Available Not Available No t Available methylpredniso lone 4 mg tablets in a dose pack TAKE 6 TABLETS ON DAY 1 DIRECTED ON PACKAGE AND DECREASE BY 1 TAB EACH DAY FOR A TOTAL OF 6 DAYS active Not Available Not Available No t Available dicyclomine 10 mg capsule TAKE 2 CAPSULES BY MOUTH 4 TIMES A DAY active Not Available Not Available No t Available oxycodone 5 mg tablet TAKE 1 TABLET BY MOUTH EVERY 4 HOURS NEEDED FOR 2 DAYS active Not Available Not Available No t Available neomycin-polym yxin-hydrocort 3.5 mg-10,000 unit/mL-1 % ear drops,susp INSTILL 4 DROPS INTO AFFECTED EAR(S) EVERY 8 HOURS active Not Available Not Available No t Available hydrocodone 7.5 mg-acetaminoph en 325 mg/15 mL oral solution 15 ML ORALLY EVERY 4 TO 6 HOURS NEEDED FOR PAIN FOR 30 DAYS PARTIAL FILL UPON PATIENT REQUEST. active Not Available Not Available No t Available ProAir RespiClick 90 mcg/actuation breath activated 2 INH INHALED EVERY 4 TO 6 HOURS NEEDED FOR FOR WHEEZING active Not Available Not Available No t Available Vitals Date Recorded Body height Body mass index (BMI) Body weight Provider Name and Address Organization Details Last Updated DateTime 07/24/2023 151.13 cm 19.9 kg/m2 53404.24 g YASH OMALLEY [facility] 07/24/2023 13:18:41 Date Recorded Body height Body mass index (BMI) Body weight Provider Name and Address Organization Details Last Updated DateTime 10/13/2023 151.13 cm 19.9 kg/m2 69887.24 g YASH OMALLEY [facility] 10/13/2023 11:36:35 Date Recorded Body height Body mass index (BMI) Body weight Provider Name and Address Organization Details Last Updated DateTime 01/24/2024 151.13 cm 19.9 kg/m2 57313.24 g YASH OMALLEY [facility] 01/24/2024 14:04:53 Date Recorded Body height Body mass index (BMI) Body weight Provider Name and Address Organization Details Last Updated DateTime 03/04/2024 151.13 cm 19.9 kg/m2 07239.24 g YASH OMALLEY [place] [facility] 03/04/2024 09:58:30 Social History None recorded. Functional Status None recorded. Mental Status None recorded. Family History Nothing Reported. Medical History No medical history recorded. Gynecological HistoryNo gynecological history recorded. Obstetrics History GPAL:G 0 P 0 0 0 0 Past Encounters Encounter ID Performer Location Encounter Start Date Encounter Closed Date Diagnosis/Indication Diagnosis SNOMED-CT Code Diagnosis ICD10 Code Diagnosis Note [id number] MD [facility] [address] [place] [address] 05/23/2023 13:51:35 06/05/2023 15:37:35 Bilateral wrist pain 8854637320 2150700 M25.531 M25.532 M79.644 Tenosynovi tis of left radial styloid 5771511749 1142277 M65.4 Bilateral arthritis of wrist 7531216057 762928 M13.831 M13.832 Tenosynovi tis of left wrist 6400487052 353394 M65.550 [id number] MD [facility] Taylor [address] [facility] [address] [place] [address] 07/03/2023 15:35:39 07/14/2023 08:10:05 Tenosynovitis of right radial styloid 5260549059 9605627 M65.4 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 2397668317 38379 M19.041 M19.042 Arthritis of first carpometacarpal joint of right hand 6974747386 796369 M13.475 [id number] Zeenat Ross, OTR/L,CHT [facility] [address] [place] [address] 07/04/2023 13:24:12 07/04/2023 14:05:26 Osteoarthrosis of the carpometacarpal joint of the thumb 11341912 M18.9 [id number] Zeenat Ross OTR/L,CHT [facility] [address] [place] [address] 07/14/2023 11:02:03 07/14/2023 12:29:26 Osteoarthrosis of the carpometacarpal joint of the thumb 65549132 M18.9 The orthosis is assessed for style and fit and function. It is providing alignment of the CMC joint and maintainin g a stable post for functional use of the tip of the thumb. The purpose and plan with the orthosis had been previously described in the patient had been adherent to that. However she reminds me that the pain at the base of her thumb and the osteoarthr itis were not the primary reason for her visit with Dr. Chaparro and she continues to have worsening pain at the radial wrist now traveling up the forearm. She states that her symptoms of gotten worse over the last 2 weeks as she has been immobilizi ng the thumb CMC and MP joints however relying more on her wrist specifical ly with her work tasks. Tenosynovi tis of right radial styloid 1802066400 3958262 M65.4 I suspect that she has an aggravatio n of the thumb tendons in the first dorsal compartmen t. She states that this is something that she did discuss with Dr. Chaparro when she was last in the office. She does have this diagnosis on her left side and has received 2 cortisone injections . On her left side she wears a copper compressio n glove to help alleviate some of her symptoms. Further assessment of the right side finds that she does have a positive Finkelstei n's test. She does not have limitation s in active wrist range of motion. Her joint motion is not affected by her volar ganglion cyst. However isolated thumb tendon motions and resistive motions creates shooting pain along the radial side of the forearm. Pain in fi nger of right hand 9914087395 65980 M79.644 The patient is also quite concerned about a very specific pain that she has at the radial side of the proximal phalanx and the PIP joint of her right hand. She states that last spring she had gotten stung by a wasp or a bee and had some swelling at that area. Once the swelling subsided she was able to regain her full active range of motion however she continues to have a very specific and point tender pain here. She describes this pain as electric and shooting and burning. A sensory assessment finds that she does have light touch sensation however there may be some deeper scar tissue that is causing some adherence to the digital nerve on the radial side of the index finger. A further assessment of the soft tissue with some deep tissue massage finds that her symptoms are aggravated . [id number] MD [facility] [address] [place], [place] [address] 07/24/2023 13:01:46 08/01/2023 13:10:07 Tenosynovitis of right radial styloid 8181236517 4997643 M65.4 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 2676219276 76577 M19.041 M19.465 [id number] MD [facility] Taylor [address] [facility] [address] [place] [address] 10/13/2023 11:15:12 11/06/2023 11:44:31 Tenosynovitis of left radial styloid 8602253008 6203860 M65.4 [id number] MD [facility] Taylor [address] [facility] [address] [place] [address] 01/24/2024 13:55:11 02/24/2024 10:57:18 Tenosynovitis of wrist 616025645 M65.249 [id number] MD [facility] - [facility] [address] [place] [address] [place] [address] 03/04/2024 09:43:41 03/19/2024 12:36:40 Arthritis of first carpometacarpal joint of right hand 3586609915 375757 M18.11 Extensor tenosynovitis of wrist 955630513 M65.140 [id number] Zeenat Ross, OTR/L,CHT [facility] - [facility] [address] [place] [address] 03/29/2024 09:55:16 03/29/2024 11:43:39 Postoperative visit [id number] Z48.89 Plan: Surgical dressing is removed and the suture tails are clipped . Scar massage was instructed with a handout given to the patient today. Home exercises focusing on gentle wrist and thumb active range of motion were also reviewed. She will focus on a home program for the next 2 weeks and then has been provided today with a prescripti on to begin a course of hand therapy in 2 weeks. Due to the nerve symptoms I have advised her that she should call now to ensure that she is seen around the 4-week kerri. Today dressing is simply a Large Band-Aid and a cotton stockinett e cover. The patient is given the following instructio ns:you may start to use the hand functional ly for light activities but to avoid any lifting or pinching at this time; do not to lift anything heavier than a coffee cup with the involved extremity; remain non weight bearing on the involved upper extremity; continue participat ing in active range of motion exercises without straining for the next 4 weeks. If any redness, swelling, drainage or do appear from the incision site, the patient was instructed to call us immediatel y. At the next appointmen t the patient will meet with the surgeon at 6 weeks postop. Tenosynovi tis of left wrist 2075033238 248975 M65.932 This visit was completed today under the supervisio n of Dr. Shankar Antonio n: Upon removal of the postop dressing, the incision is inspected. It is found to be clean and dry with an intact running suture with tails and Steri-Stri ps. Patient has intact neurovascu lar structures with only slight tenderness along the sides of the incision. No surroundin g erythema, wound drainage, warmth or signs of infection. There is typical slight palpable postoperat reshma edema just surroundin g the incision. The patient states but more concerning is the sharp pain at the surgical area slight radial forearm proximal muscle pain; which shoots down the thumb and may be consistent with dorsal branch of the radial sensory nerve irritation . Active range of motion is limited as expected however the patient is able to show minimal midrange of wrist and thumb active range of motion and does have full motion of the digits. The patient does say a diffuse tingling throughout the hand concerns her. Impression : 14 days status post left first dorsal compartmen t release Health Concerns Section Related Observation LastModified by Organization Detai ls LastModified Time None Recorded Concern Status LastModified by Organization Details LastModified Time None Recorded Advance Directives Directive None Recorded Payers Encounter Date Sequence Insurance Name Policy Number Policy [place] Covered Member ID [place] Member ID Guarantor Name 07/24/2023 1 [place] [employer] Kaylyn Chalifoux [id number] Kaylyn Chalifoux 07/24/2023 2 [facility] 1 (MEDICARE SUPPLEMENT) [id number] Kaylyn Chalifoux [id number] Kaylyn Chalifoux 10/13/2023 1 [place] [employer] [employer] Kaylyn Chalifoux [id number] Kaylyn Chalifoux 10/13/2023 2 [facility] 1 (MEDICARE SUPPLEMENT) [id number] Kaylyn Chalifoux [id number] Kaylyn Chalifoux 01/24/2024 1 [place] [employer] Kaylyn Chalifoux [id number] Kaylyn Chalifoux 01/24/2024 2 [facility] 1 (MEDICARE SUPPLEMENT) [id number] 01 Kaylyn Chalifoux [id number] Kaylyn Chalifoux 03/04/2024 1 [place] [employer] Kaylyn Chalifoux [id number] Kaylyn Chalifoux 03/04/2024 2 [facility] 1 (MEDICARE SUPPLEMENT) [id number] 01 Kaylyn Chalifoux [id number] Kaylyn Chalifoux 03/29/2024 1 [place] [employer] Kaylyn Chalifoux [id number] Kaylyn Chalifoux 03/29/2024 2 [facility] 1 (MEDICARE SUPPLEMENT) [id number] 01 Kaylyn Chalifoux [id number] Kaylyn Chalifoux Notes Date Note Type Note Provider Name and Address Organization Details Recorded Time 07/24/2023 text/html Diagnosis: 1. De Quervain's tenosynovitis right wrist.2. Pantrapezial arthritis bilateral wrists3. Severe osteoarthritis right index PIP joint4. Left de Quervain's tenosynovitis resolved with corticosteroid injection therapyThe patient returns at her request. She is describing severe pain over her right radial wrist, her right index finger, and the base of her left thumb. She describes no numbness or tingling.Past family, medical, social history and review of systems has been reviewed, updated and is located in the patient? s chart.Examination: Healthy appearing patient in no apparent distress. Alert and oriented. Decreased wrist and digital range of motion bilaterally. Provocative testing the right wrist reveals markedly positive Steve's test. She tolerates range of motion of her right index finger minimally. Provocative testing the left wrist reveals a positive first CMC grinding compression No atrophy in either upper extremity. Brisk capillary refill in all digitsPlan: The patient and I discussed her situation at length. We reviewed the nature of de Quervain's tenosynovitis and osteoarthritis of the pantrapezial joint and the index finger PIP joint. She is requesting corticosteroid injection therapy for all. Did discuss the potential concerns of depigmentation of her skin and subcutaneous fat atrophy.After sterile preparation of the area, the soft tissue over the left first CMC joint was injected with 2% plain lidocaine. After 5 minutes and repeat sterile preparation, the first CMC joint was injected with 3mg of celestone and 1cc of 1% plain lidocaine. The patient tolerated the procedure well.After sterile preparation of the area, the right first dorsal compartment was injected with 6 mg of Celestone and 1 cc of 1% plain lidocaine.After sterile preparation of the area, the right index finger PIP joint was injected with 6 mg of Celestone and 1 cc 1% plain lidocaine. She tolerated these injections well. The patient will follow up at her discretion Clifford Chaparro MD [address] [place] [address] [address], [place], [address], [facility] 07/25/2023 07:47:49 10/13/2023 text/html Diagnosis: 1. De Quervain's tenosynovitis left wrist. Status post one innjection2. Pantrapezial arthritis bilateral wrists3. Severe osteoarthritis right index PIP joint4. Right de Quervain's tenosynovitis resolved with corticosteroid injection therapyThe patient returns at her request. She is describing severe pain over her left radial wrist.Past family, medical, social history and review of systems has been reviewed, updated and is located in the patient? s chart.Examination: Healthy appearing patient in no apparent distress. Alert and oriented. Decreased wrist and digital range of motion bilaterally. Provocative testing the right wrist reveals markedly positive Steve's test. She tolerates range of motion of her right index finger minimally. Provocative testing the left wrist reveals a positive first CMC grinding compression No atrophy in either upper extremity. Brisk capillary refill in all digitsPlan: The patient I discussed her situation at length. Her options include left first dorsal compartment release for a second injection. We discussed the nature of the surgery and is potential risks including infection, injury to blood vessels, tendons, nerves, subluxation of her tenderness and stiffness of her wrist. All her questions are answered. She would like to proceed with an repeat injection. She tolerated the injection well. Clifford Chaparro MD [address] [place] [address] [address], [place], [address], [facility] 10/17/2023 16:54:58 01/24/2024 text/html Diagnosis: 1. De Quervain's tenosynovitis left wrist status post 2 injections2. De Quervain's tenosynovitis right wrist status post one injection3. Pantrapezial arthritis bilateral wristsThe patient presents at her request. She is describing severe pain over the radial aspect of her left wrist. This occurs with thumb motion.Past family, medical, social history and review of systems has been reviewed, updated and is located in the patient? s chart.Examination: Healthy appearing patient in no apparent distress. Alert and oriented.HEENT: Normocephalic and atraumatic.Heart: Regular rate and rhythm.Lungs: Clear to auscultation bilaterally.Abdomen: Soft and nontender.Neurovascul ar exam: Intact bilateral upper extremitiesExtremitie s: Decreased wrist range of motion bilaterally. Provocative testing of the right wrist reveals a positive first CMC grind and compression test. Provocative testing the left wrist reveals a markedly positive Steve's test and a mildly positive first CMC compression test. No atrophy in either upper extremity. Brisk capillary refill in all digitsPlan: The patient and I discussed her situation at length. She would like to proceed with a left first dorsal compartment release. We discussed the nature of that surgery and its potential risks including infection, injury to blood vessels, tendons, nerves, subluxation of her tendons and stiffness of her wrist. All her questions are answered. She has consented to the procedure. Clifford Chaparro MD [address], [place], [address], [facility] 01/27/2024 14:59:51 03/04/2024 text/html Diagnosis: 1. De Quervain's tenosynovitis left wrist. Status post one innjection2. Pantrapezial arthritis bilateral wrists3. Severe osteoarthritis right index PIP joint4. Right de Quervain's tenosynovitis resolved with corticosteroid injection therapyThe patient returns at her request. She is describing severe pain over her left radial wrist.Past family, medical, social history and review of systems has been reviewed, updated and is located in the patient? s chart.Examination: Healthy appearing patient in no apparent distress. Alert and oriented. Decreased wrist and digital range of motion bilaterally. Provocative testing the right wrist reveals markedly positive Steve's test. She tolerates range of motion of her right index finger minimally. Provocative testing the left wrist reveals a positive first CMC grinding compression No atrophy in either upper extremity. Brisk capillary refill in all digitsPlan: The patient I discussed her situation at length. She would like to proceed with a corticosteroid injection into her right first CMC joint. She tolerated this well. She is also requested that we schedule a left first dorsal compartment release. We did review the nature of the surgery and its potential risks including infection, injury to blood vessels, tendons, nerves, subluxation of the tendons and stiffness of the wrist. Clifford Chaparro MD [address], [place], [address], [facility] 03/04/2024 11:32:41 03/29/2024 text/html This is a 74-yea r-old woman who had the left first dorsal compartment release surgery with Dr. Chaparro on 03/15/2024. She has dealt with this condition for quite some time and had met with me last spring with regards to her arthritis but we also noticed this tendon issue at that same time. Today we will see her postoperatively and advised on her home program and she will begin a short course of occupational therapy. She will return to the office in 1 month to meet with the surgeon VAN Mariano/Diomedes,CHT [address], [place], [address], [facility] 03/29/2024 10:44:01 OBGyn Episode No OBEpisode recorded.
--- OUTSIDE RECORDS SUMMARY | 2024-04-19 11:41 | XMS_ITS | Patient Health Record ---
Author Organization [facility] jennifer [place] Address [address] [place] [address] Care Team Providers Care Colorer Hides And Skins Name Role Phone Jalyn MUNOZ, Ashvin Primary Care Provider Ron Tello Unavailable [phone] Allergies Allergen (clinical drug ingredient) Drug/Non Drug Allergy documented on EMR Reaction Allergy Type Onset Date Status sulfamethoxazole / trimethoprim Bactrim Swelling, severe rash,hives Drug Allergy Active amoxicillin Amoxicillin Swelling, severe rash,hives Drug Allergy Active azithromycin Azithromycin Swelling, severe rash,hives Drug Allergy Active doxycycline Doxycycline Swelling, severe rash,hives Drug Allergy Active Latex Latex swelling Allergy Active Reason For Referral No Information Medications Medication SIG (Take, Route, Frequency, Duration) Notes Start Date End Date Status Xfggtsxnku-YKSI-Yorbraip 50-325-40 MG TAKE 1 TABLET BY MOUTH EVERY SIX HOURS NEEDED Oral for 7 PRN Active Dicyclomine HCl PRN Acti ve Albuterol PRN Active ProAir HFA 108 (90 Base) MCG/ACT 1 puff as needed Inhalation every 4 hrs PRN Active Zolpidem Tartrate 5 MG 1 tablet at bedti me as needed Orally PRN Active Social History Tobacco Use: Social History Observation Description Date Details (start date - stop date) Former Smoker NA - NA Tobacco Use/Smoking Question Answer Notes Are you a: former smoker Additional Findings: Tobacco Non-User Cu rrent non-smoker, but past smoking history unknown Alcohol Screen Question Answer Notes Did you have a drink contain ing alcohol in the past year? Yes How often did you have a dri nk containing alcohol in the past year? Monthly or less (1 point) Points 1 Interpretation Negative Tobacco use other than smoking: Question Answer Notes Are you an other tobacco user? No Problems Problem Type SNOMED Code ICD Code Onset Dates Problem Status W/U Status Risk Notes Problem Acquired hallux valgus (38707578) Hallux valgus (acquired), left foot (M20.12) Active confirmed Problem Non-pressure chronic ulcer of other part of right foot with fat layer exposed (L97.512) Active confirmed Problem Chronic ulcer of foot (264649949) Non-pressure chronic ulcer of other part of left foot with fat layer exposed (L97.522) Active confirmed Problem Acquired hallux valgus (25847452) Hallux valgus (acquired), right foot (M20.11) Active confirmed Plan Of Treatment No Information Insurance Providers Payer Name Payer Address Payer Phone Subscriber Number Group Number Insured Name Patient Relationship to Insured Coverage Start Date Coverage End Date Medicare National [employer] [address] [place] [address] [id number] Kaylyn Mcqueen Self - patient is the insured [facility] [address] [place] [address] [phone] [id number] Kaylyn Mcqueen Self - patient is the insured Medical (General) History Medical History History ICD Code Arthritis asthma Headaches/Migraines Surgical History Surgery Date(Month/Year) Hernia Late Carpal Tunnel 2000
== END 2024-04-19 10:59 | disposition home or self-care (01) ==
PROVIDERS: PCP Internal Medicine; Visit Provider Internal Medicine
DX: G43.909 Migraine, unspecified, not intractable, without status migrainosus (principal)

== ENCOUNTER → 2024-04-19 10:22 | Outpatient (BNVA) | payer MEDICARE, OTHER, SELFPAY | PROVIDERS: PCP Internal Medicine; Visit Provider Internal Medicine | DX: G43.909 Migraine, unspecified, not intractable, without status migrainosus (principal) | CPT/HCPCS: 96127; 99212 ==

== ENCOUNTER 2024-05-08 13:17 | Outpatient (REF) | payer MEDICARE, OTHER, SELFPAY ==
[2024-05-08 14:04] LABS: MANUAL DIFF FLAG NO
[2024-05-08 14:44] LABS: Basophils Absolute Auto 0.1 X10*3/uL (0.0-0.2); Basophils Percent Auto 0.6 % (0-2); Eosinophils Absolute Auto 0.2 X10*3/uL (0.0-0.4); Eosinophils Percent Auto 2.1 % (0-4); Hematocrit 40.2 % (37.0-47.0); Hemoglobin 14.2 g/dl (12.0-16.0); Imm Gran Abs Auto 0.03 X10*3/uL (0.00-0.03); Imm Gran Pct Auto 0.3 % (0.0-0.4); Lymphocytes Absolute Auto 2.3 X10*3/uL (1.2-4.9); Lymphocytes Percent Auto 24.8 % (20-40); Mean Corpuscular HGB Conc 35.3 g/dl (31.0-35.0); Mean Corpuscular Hemoglobin 32.3 pg (27.0-33.0); Mean Corpuscular Volume 91.4 fL (80.0-98.0); Monocytes Absolute Auto 0.7 X10*3/uL (0.1-1.2); Monocytes Percent Auto 7.9 % (2-11); Neutrophils Percent Auto 64.3 % (45-73); Platelet Count 357 X10*3/uL (160-400); White Blood Count 9.3 X10*3/uL (4.8-10.8)
== END 2024-05-08 13:18 | disposition home or self-care (01) ==
LOC: HO.LAB 13:17
PROVIDERS: PCP Internal Medicine; Visit Provider Internal Medicine Pulmonary Disease
DX: Z91.09 Other allergy status, other than to drugs and biological substances (principal)
CPT/HCPCS: 36415; 82785; 85025; 86003; 99212

== ENCOUNTER 2024-05-08 13:17 | Outpatient (AMB) | payer MEDICARE, OTHER, SELFPAY ==
[2024-05-08 13:18] VITALS: BP 104/60; PULSE 91; O2SAT 96; BMI 20.8
--- NOTE | 2024-05-08 13:18 | MHC.OFFVIS ---
Vital Signs 05/08/24 13:18 Height 4 ft 11 in Weight 103 lb BMI 20.8 BP 104/60 Blood Pressure Location Rt brachial Position Sitting Pulse 91 Pulse Source Doppler Pulse Oximetry (%) 96 Oxygen Delivery Method Room Air Intake Visit Reasons: Shortness of breath Allergies azithromycin Allergy (Severe, Verified 04/19/24 10:27) hives amoxicillin [AMOXICILLIN] Allergy (Intermediate, Verified 04/19/24 10:27) UNKNOWN doxycycline [DOXYCYCLINE] Allergy (Intermediate, Verified 04/19/24 10:27) Hives latex Allergy (Intermediate, Verified 04/19/24 10:27) Swelling Sulfa (Sulfonamide Antibiotics) [SULFA (SULFONAMIDE ANTIBIOTICS)] Allergy (Intermediate, Verified 04/19/24 10:27) HIVES HPI HPI Shortness of breath: Details: 74-year-old lady, former approximately 15 pack-year smoker, quit 20 years prior, followed for severe persistent asthma and environmental allergies. She has been tried on Xolair, however she developed side effects from its use. She is not able to afford inhaled inhaled steroid/long-acting beta agonist or short acting beta agonist either. She has been tried on Nucala, however she denies any symptomatic improvement. Patient also complains of headache when using nebulized budesonide and albuterol or Singulair. She has been using albuterol MDI and duo nebs with good control of her symptoms. Though, today she complains of worsening seasonal allergy symptoms. [facility] Medical History Migraine headache Hiatal hernia Migraine Irritable bowel syndrome with constipation Asthma Surgical History History of bilateral carpal tunnel release History of esophagogastroduodenoscopy (EGD) Hx of colonoscopy H/O ventral hernia repair Family History Father Diabetes Mother Cancer Social History Housing: House Patient Tobacco Use Status: Former Tobacco user Tobacco use type: Cigarette Years Smoked: 20-25 yrs e-Cigarette/Vaping Use: Never Used Second Hand Smoke Exposure: No service: No Current occupational status: retired Cognitive needs: No Hearing needs: No Vision needs: No Review of Systems Const Denies daytime sleepiness, Denies excessive sweating, Denies fatigue, Denies fever(s), Denies lethargy, Denies malaise, Denies night sweats, Denies snoring and Denies weight loss Eyes Denies blurry vision and Denies itchy eyes ENT Denies nasal congestion, Denies post nasal drip, Denies sinus pain, Denies sinus pressure and Denies other ( Thrush) Card Denies chest pain, Denies pedal edema, Denies dyspnea, Denies orthopnea and Denies paroxysmal nocturnal dyspnea Resp Denies cough, Denies hemoptysis, Denies excessive phlegm production, Denies dyspnea, Denies snoring and Denies wheezing GI Denies abdominal pain and Denies heartburn Musc Denies myalgias, Denies arthralgias and Denies joint swelling Skin/Breast Denies rash Neuro Denies memory loss and Denies seizure-like activity Psych Denies abnormal sleep pattern, Denies anxiety and Denies memory loss Endo Denies excessive sweating, Denies fatigue and Denies heat intolerance Bob/Lymph Denies easy bruising Aller/Immun Denies itchy eyes, Denies seasonal rhinorrhea and Denies wheezing Physical Exam Vital Signs: Last Vital Signs Pulse 91 05/08/24 13:18 BP 104/60 05/08/24 13:18 Pulse Ox 96 05/08/24 13:18 Oxygen Delivery Method Room Air 05/08/24 13:18 BMI result Body Mass Index 20.8 Const General: no acute distress and alert Nutritional Appearance: not obese Orientation/consciousness: Other orientation findings ( oriented) HEENT Head: Yes atraumatic Eyes General: appearance normal, both eyes and all related structures Sclerae: sclerae normal EOM: EOMs intact bilaterally Neck Neck: Yes supple Lymphatic: no lymphadenopathy noted Resp Effort & Inspection: normal respiratory effort and no use of accessory muscles Auscultation: clear to auscultation bilaterally Cardio Rate: regular rate Rhythm: regular rhythm Heart sounds: no gallops, no murmurs and no rubs Skin General skin exam: other ( warm) Extrem General: No clubbing, No cyanosis and No edema Assessment & Plan Assessment & Plan (1) Asthma: Code(s): J45.909 - Unspecified asthma, uncomplicated Category: Medical Plan: Baseline control on duo nebs and albuterol MDI. Continue current regimen. (2) Environmental allergies: Code(s): Z91.09 - Other allergy status, other than to drugs and biological substances Category: Medical Plan: Now with worsening allergic symptoms. Will repeat RAST panel, IgE level, and CBC with differential for further evaluation. Orders: Orders Complete Blood Count Auto Diff Today Z91.09 - Other allergy status, other than to drugs and biological substances Resp Allergy Profile Region I Today Z91.09 - Other allergy status, other than to drugs and biological substances Medications: New albuterol sulfate 2.5 mg (3 mL) inhalation Q4-6H PRN 180 mL 6RF shortness of breath or wheezing Z91.09 - Other allergy status, other than to drugs and biological substances Coding Level of Care Code Est Pt Level 4 (53408) Diagnoses Asthma J45.909 Environmental allergies Z91.09
--- OUTSIDE RECORDS SUMMARY | 2024-05-08 15:42 | XMS_ITS | Patient Health Record ---
Author Organization [facility] Address [address] [place] [address] Care Team Providers Care Subsurface Augmentee Operator Name Role Phone Ashvin Gunderson MD Primary Care Provider Arthur Crump Unavailable [phone] Pat Bryant Unavailable Unavailable Allergies Allergen (clinical drug ingredient) Drug/Non Drug Allergy documented on EMR Reaction Allergy Type Onset Date Status doxycycline Doxycycline Unknown Drug Allergy Act reshma Sulfa Unknown Drug Allergy Active Latex Gloves Unknown Drug Allergy Acti ve amoxicillin Amoxicillin Unknown Drug Allergy Act reshma Reason For Referral No Information Medications Medication [...] AT BEDTIME NEEDED Oral for 30 Active Bodqaliwth-WAJP-Warshhue Active Albuterol PRN Active Immunizations Vaccine Route Administration Date Status Comme nts Influenza Unknown 10/22/2019 Administered Influenza Unknown 10/21/2020 Administered Problems Problem Type SNOMED Code ICD Code Onset Dates Problem Status W/U Status Risk Notes Problem Rectal bleeding (24219805) Rectal bleeding (K62.5) Active confirmed Problem 367694899 Encounter for screening for malignant neoplasm of colon (Z12.11) Active confirmed Problem 533313761 History of adenomatous polyp of colon (Z86.010) Active confirmed Problem History of polyp of colon (situation) (231484285) Personal history of colonic polyps (Z86.010) Active confirmed Problem Diverticular disease of colon (680453278) Diverticulosis of large intestine without perforation or abscess without bleeding (K57.30) Active confirmed Problem Screening for malignant neoplasm of rectum (705911637) Encounter for screening for malignant neoplasm of rectum (Z12.12) Active confirmed Problem 254769366 Gas (R14.3) Active confirmed Problem 292002337 Irritable bowel syndrome with constipation (K58.1) Active confirmed Problem Acute diarrhea (179338840) Acute diarrhea (R19.7) Active confirmed Plan Of Treatment Future Test Test Name Order Date UPPER GI ENDOSCOPY 07/24/2015 COLONOSCOPY 07/24/2015 COLONOSCOPY 07/07/2020 Insurance Providers Payer Name Payer Address Payer Phone Subscriber Number Group Number Insured Name Patient Relationship to Insured Coverage Start Date Coverage End Date MEDICARE OF [place] [address] [place] [address] [id number] BIANCA Ochoa JESSE Self - patient is the insured [facility] [address] [place] [address] [phone] [id number] ALBERTCARLITA JESSE Ochoa Self - patient is the insured Medical (General) History Medical History History ICD Code Denies [place],DM,CVA,renal disease Allergies Asthma IBS--constipation Headaches--Migraines--gets B otox injections from her neurologist, Dr. Lal EGD 09/2015--small hiatal her bill--normal duodenal biopsies, no esophagitis, no Dodge's Colonoscopy 09/2015 with 1 sm all hyperplastic polyp and 1 small tubular adenoma Negative colonoscopy in 08/2020 Surgical History Surgery Date(Month/Year) Bilateral carpal tunnel release Hernia repair--umbilical
--- OUTSIDE RECORDS SUMMARY | 2024-05-08 15:43 | XMS_ITS | Patient Health Record ---
[facility] jennifer [place] Address [address] [place] [address] Care Team Providers Care Broomcorn Sorter Name Role Phone Jalyn MUNOZ, Ashvin Primary Care Provider Ron Tello Unavailable [phone] Allergies Allergen (clinical drug ingredient) Drug/Non Drug [...] Duration) Notes Start Date End Date Status Zxasicdfxm-SOZS-Isilpctq 50-325-40 MG TAKE 1 TABLET BY MOUTH [...] Status Risk Notes Problem Acquired hallux valgus (92580268) Hallux valgus (acquired), left foot (M20.12) Active confirmed Problem Non-pressure chronic ulcer of other part of right foot with fat layer exposed (L97.512) Active confirmed Problem Chronic ulcer of foot (248218484) Non-pressure chronic ulcer of other part of left foot with fat layer exposed (L97.522) Active confirmed Problem Acquired hallux valgus (45418127) Hallux valgus (acquired), right foot (M20.11) Active confirmed Plan Of Treatment No Information Insurance Providers Payer Name Payer Address Payer Phone Subscriber Number Group Number Insured Name Patient Relationship to Insured Coverage Start Date Coverage End Date Medicare National [employer] [address] [place] [address] [id number] Kaylyn Mcqueen Self - patient is the insured [facility] [address] [place] [address] [id number] Kaylyn Mcqueen Self - patient is the insured Medical (General) History Medical History History ICD Code Arthritis asthma Headaches/Migraines Surgical History Surgery Date(Month/Year) Hernia Late Carpal Tunnel 2000
== END 2024-05-08 13:43 | disposition home or self-care (01) ==
LOC: HO.HPS 13:17
PROVIDERS: PCP Internal Medicine; Visit Provider Internal Medicine Pulmonary Disease
DX: J45.909 Unspecified asthma, uncomplicated (principal); Z91.09 Other allergy status, other than to drugs and biological substances
CPT/HCPCS: 99214

== ENCOUNTER 2024-05-31 14:14 | Outpatient (REF) | payer MEDICARE, OTHER, SELFPAY ==
--- OUTSIDE RECORDS SUMMARY | 2024-05-31 14:38 | XMS_ITS | Patient Health Record ---
Author Organization [facility] Address [address] [place] [address] Care Team Providers Care Tank Maker Wood Name Role Phone Ashvin Gunderson MD Primary Care Provider Arthur Crump Unavailable [phone] Pat Bryant Unavailable Unavailable Allergies Allergen (clinical [...] AT BEDTIME NEEDED Oral for 30 Active Zoxmrjtjeq-XNGC-Pliekben Active Albuterol PRN Active Immunizations Vaccine Route Administration Date Status Comme nts Influenza Unknown 10/22/2019 Administered Influenza Unknown 10/21/2020 Administered Problems Problem Type SNOMED Code ICD Code Onset Dates Problem Status W/U Status Risk Notes Problem Rectal bleeding (19857699) Rectal bleeding (K62.5) Active confirmed Problem 361927098 Encounter for screening for malignant neoplasm of colon (Z12.11) Active confirmed Problem 556664676 History of adenomatous polyp of colon (Z86.010) Active confirmed Problem History of polyp of colon (situation) (280971275) Personal history of colonic polyps (Z86.010) Active confirmed Problem Diverticular disease of colon (827489977) Diverticulosis of large intestine without perforation or abscess without bleeding (K57.30) Active confirmed Problem Screening for malignant neoplasm of rectum (942873625) Encounter for screening for malignant neoplasm of rectum (Z12.12) Active confirmed Problem 619189723 Gas (R14.3) Active confirmed Problem 565839429 Irritable bowel syndrome with constipation (K58.1) Active confirmed Problem Acute diarrhea (862450491) Acute diarrhea (R19.7) Active confirmed Plan Of Treatment Future Test Test Name Order Date UPPER GI ENDOSCOPY 07/24/2015 COLONOSCOPY 07/24/2015 COLONOSCOPY 07/07/2020 Insurance Providers Payer Name Payer Address Payer Phone Subscriber Number Group Number Insured Name Patient Relationship to Insured Coverage Start Date Coverage End Date [place]ARE OF [place] [address] [place] [address] [phone] [id number] BIANCA Ochoa JESSE Self - patient is the insured [facility] [address] [place] [address] [phone] [id number] ALBERTCARLITA JESSE Ochoa Self - patient is the insured Medical (General) History Medical History History ICD Code Denies [place],DM,CVA,renal disease Allergies Asthma IBS--constipation Headaches--Migraines--gets B otox injections from her neurologist, Dr. Lal EGD 09/2015--small hiatal her bill--normal duodenal biopsies, no esophagitis, no Dodge's Colonoscopy 09/2015 with 1 sm all hyperplastic polyp and 1 small tubular adenoma Negative colonoscopy in 08/2020 Surgical History Surgery Date(Month/Year) Bilateral carpal tunnel release Hernia repair--umbilical
--- OUTSIDE RECORDS SUMMARY | 2024-05-31 14:38 | XMS_ITS | Patient Health Record ---
[facility] [place]enn[place] Address [address] [facility] [place] [address] Care Team Providers Care Floatlight Loading Supervisor Name Role Phone Jalyn MUNOZ, Ashvin Primary Care Provider Ron Tello Unavailable [phone] Allergies Allergen (clinical drug ingredient) Drug/Non Drug [...] Duration) Notes Start Date End Date Status Rbjseyrcjg-BZDN-Zjvtvtkq 50-325-40 MG TAKE 1 TABLET BY MOUTH [...] Status Risk Notes Problem Acquired hallux valgus (72012695) Hallux valgus (acquired), left foot (M20.12) Active confirmed Problem Non-pressure chronic ulcer of other part of right foot with fat layer exposed (L97.512) Active confirmed Problem Chronic ulcer of foot (319321257) Non-pressure chronic ulcer of other part of left foot with fat layer exposed (L97.522) Active confirmed Problem Acquired hallux valgus (73306803) Hallux valgus (acquired), right foot (M20.11) Active confirmed Plan Of Treatment No Information Insurance Providers Payer Name Payer Address Payer Phone Subscriber Number Group Number Insured Name Patient Relationship to Insured Coverage Start Date Coverage End Date Medicare National [employer] [address] [place] [address] [id number] Kaylyn Mcqueen Self - patient is the insured [facility] [address] [place] [address] [id number] Kaylyn Mcqueen Self - patient is the insured Medical (General) History Medical History History ICD Code Arthritis asthma Headaches/Migraines Surgical History Surgery Date(Month/Year) Hernia Late Carpal Tunnel 2000
[2024-06-05 23:09] LABS: Class Alternaria alternata 0; Class Aspergillus fumigatus 0; Class Bermuda Grass 0; Class Birch 0; Class Cat Dander 0; Class Cladosporium herbarum 0; Class Cockroach 0; Class Common Ragweed 0; Class Cottonwood 0; Class Derm. pterony 0; Class Dermatophagoides farinae 0; Class Dog Dander 0; Class Elm 0; Class Maple Box Elder 0; Class Mountain Cedar 0; Class Mouse Urine Protein 0; Class Mugwort 0; Class Oak 0; Class Penicillium crysogenum 0; Class Rough Pigweed 0; Class Sheep Sorrel 0; Class Sycamore 0; Class Timothy Grass 0; Class Walnut Tree 0; Class White Ash 0; Class White Mulberry 0; D001 IgE D pteronyssinus <0.10 kU/L; D002 - IgE D farinae <0.10 kU/L; E001 - IgE Cat Dander <0.10 kU/L; E005 - IgE Dog Dander <0.10 kU/L; E072-IgE Mouse Urine <0.10 kU/L; G002 IgE Bermuda Grass <0.10 kU/L; G006 - IgE Timothy Grass <0.10 kU/L; I006-IgE Cockroach, German <0.10 kU/L; Immunoglobulin E 277 kU/L (<OR=114); M001 IgE Penicillium chrysogen <0.10 kU/L; M002 - IgE Cladosporium herbar <0.10 kU/L; M003 - IgE Aspergillus fumigat <0.10 kU/L; M006 - IgE Alternaria alternat <0.10 kU/L; T001 IgE Maple/Box Elder <0.10 kU/L; T003 IgE Common Silver Birch <0.10 kU/L; T006 - IgE Cedar, Mountain <0.10 kU/L; T007 - IgE Oak, White <0.10 kU/L; T008 IgE Elm, American <0.10 kU/L; T010 - IgE Walnut <0.10 kU/L; T011 - IgE Maple Leaf Sycamore <0.10 kU/L; T014 - IgE Cottonwood <0.10 kU/L; T015 - IgE Ash, White <0.10 kU/L; T070 - IgE White Mulberry <0.10 kU/L; W001 - IgE Ragweed, Short <0.10 kU/L; W006 - IgE Mugwort <0.10 kU/L; W014 IgE Pigweed, Common <0.10 kU/L; W018 IgE Sheep Sorrel <0.10 kU/L
== END 2024-05-31 14:15 | disposition home or self-care (01) ==
LOC: HO.LAB 14:14
PROVIDERS: PCP Internal Medicine; Visit Provider Internal Medicine Pulmonary Disease
DX: Z91.09 Other allergy status, other than to drugs and biological substances (principal)
CPT/HCPCS: 36415; 82785; 86003

== ENCOUNTER 2024-06-03 10:30 | Outpatient (RCR) | payer MEDICARE, OTHER, SELFPAY ==
--- NOTE | 2024-04-16 11:53 | MHC.OT.EP ---
[address] [phone] Occupational Therapy Plan of Care Patient Name: Kaylyn Horne Date of Evaluation: 04/15/24 Diagnosis: Post surgical: 1 st DC release Pain Location: L radial side of wrist Pain Score: 7 Pain Scale Used: Numeric (0 - 10) Aggravating Factors: Alleviating Factors: tylenol did not work Assessment: Pt is a R hand dominant 74 yr old female who had a debridement of her 1 st DC on 03/15/[address] Chaparro at [facility] in [facility]. She reports 1st DC pain for years. 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 Pt presents today w/ limited pain free ROM (RD, flexion), decreased strength, and hypersensitivity of her scar. She has been referred to skilled OT therapy to address her deficits and increase the functional use of her L hand Frequency and Duration: The patient will be seen 2xs a week for 4 weeks Short Term Goals: Pt will be complaint w/ scar massage Pt will report a decrease of pain to 5/10 Pt will be able to oppose her L thumb to the base of her SF w/out pain Skilled Nursing Goals: Pt will have 60 of pain free wrist flexion Pt will have 10 lbs of L hand rn forensic Pt will report 2/ 10 pain w/ activity (L wrist) Treatment Plan: Therapeutic Exercise Therapeutic Activity Home Exercise Program Splinting Neuro Re-ed Patient Education Desensitization/Sensory Re-ed Edema Control ADL Training Ultrasound NMES Iontophoresis Paraffin Fluidotherapy MHP Cold Packs Joint Mobilization Soft Tissue Mobilization Kinesiotaping Other (see comments) Electronically Signed By: Jonelle Kidd OTR/L Please Sign and return to therapist. Thank you once again for your referral.
--- NOTE | 2024-04-16 11:54 | MHC.OT.OEV ---
[address] [phone] F: [phone] Occupational Therapy Evaluation Patient Name: Kaylyn Horne Diagnosis: Post surgical: 1 st DC release Date of Onset: 11/21/23 Date of Surgery: 03/15/24 Attending Provider: Clifford Chaparro Prescribed Treatment: Follow Up Appointment: History of Current Condition: Pt is a R hand dominant 74 yr old female who had a debridement of her 1 st DC on 03/15/[address] Chaparro at [facility] in [facility]. She reports 1st DC pain for years. 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 Pt presents today w/ limited pain free ROM (RD, flexion), decreased strength, and hypersensitivity of her scar. She has been referred to skilled OT therapy to address her deficits and increase the functional use of her L hand Significant Medical History: CTR surgery 15 + yrs ago, Asthma, OA, Asthma Precautions/Contraindications: Patient Goals: RPLOF Hand Dominance: Right Observations: QuickDASH Score: Prior Level of Function and Occupation Self Care, Employment, Leisure: [employer] Living Situation, Family and/or Social Support: Pt lives in a home in [place] w/ her Current Level of Function and Occupation Self Care, Employment, Leisure: Pt is not working due to surgery she is supposed to RTW in April Sleep: Driving: No trouble Vision: Balance: Pain Assessment Pain Score: 7 Pain Scale Used: Numeric (0 - 10) Pain Location and Description: L radial side of wrist Aggravating Factors: Alleviating Factors: tylenol did not work Skin and Soft Tissue Assessment Skin and Soft Tissue: Scar Tissue Comments: scar is hypersensitive; slightly hypertrophic and dark pink in color Nerve assessment Ulnar Nerve: Median Nerve: Radial Nerve: Comments: Sensory Assessment Temperature: Light Touch: Proprioception: Vibration: Comments: Scar hypersensitivity Edema Assessment Upper Extremity: Lower Extremity: Comments: Dexterity Assessment Dexterity: Comments: Special Tests Comments: AROM(PROM) Strength Cervical Cervical Flexion: Cervical Extension: Cervical Lateral Flexion: Cervical Rotation: Comments: Shoulder Flexion: Extension: Abduction: Internal Rotation: External Rotation: Comments: Flexion: Extension: Abduction: Internal Rotation: External Rotation: Comments: Elbow Flexion: Extension: Pronation: Supination: Comments: Flexion: Extension: Pronation: Supination: Comments: Wrist Flexion: L: 50 w. pain R: 70 Extension: L: 40 R: 40 Ulnar Deviation: Radial Deviation: Comments: Flexion: Extension: Ulnar Deviation: Radial Deviation: Comments: Thumb Thumb CMC Flexion: Thumb MCP Flexion: Thumb IP Flexion: Radial Abduction: Palmar Abduction: [place] (K[place]andji 0-10): Comments: Thumb opp to base of SF pain free: L .5 cm form base of SF R: to base of SF pain free Digits Index MCP: PIP: DIP: Long MCP: PIP: DIP: Ring MCP: PIP: DIP: Small MCP: PIP: DIP: Comments: Pt can make a composite fist Gross Grasp: L: 5 lbs PAIN R: 15 lbs Lateral Pinch: Two-Point Pinch: Three-Jaw Cisco: Comments: Patient Education 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 Patient demonstrates Barriers to Learning: None Readiness for Learning: Accepting Who was educated? Patient Comments: Plan of Care Assessment: Pt is a R hand dominant 74 yr old female who had a debridement of her 1 st DC on 03/15/[address] Chaparro at [facility] in [facility]. She reports 1st DC pain for years. 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 Pt presents today w/ limited pain free ROM (RD, flexion), decreased strength, and hypersensitivity of her scar. 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 Pt will report 2/ 10 pain w/ activity (L wrist) Frequency and Duration: The patient will be seen 2xs a week for 4 weeks Treatment Plan: Therapeutic Exercise Therapeutic Activity Home Exercise Program Splinting Neuro Re-ed Patient Education Desensitization/Sensory Re-ed Edema Control ADL Training Ultrasound NMES Iontophoresis Paraffin Fluidotherapy MHP Cold Packs Joint Mobilization Soft Tissue Mobilization Kinesiotaping Other (see comments) Electronically Signed By: Jonelle Kidd OTR/L Reviewed/agree with student documentation: N/A Therapist: Please sign and return to therapist, Thank you for your referral.
== END 2024-10-18 13:47 | disposition home or self-care (01) ==
LOC: HO.OT 10:30
PROVIDERS: PCP Internal Medicine; Visit Provider Orthopaedic Surgery
DX: M65.4 Radial styloid tenosynovitis [de Quervain] (principal)
CPT/HCPCS: 97035; 97110; 97140; 97165; 97535

== ENCOUNTER 2024-08-05 12:53 | Outpatient (AMB) | payer MEDICARE, OTHER, SELFPAY ==
[2024-08-05 13:04] VITALS: BP 120/70; BMI 20.6
--- NOTE | 2024-08-05 13:04 | MHC.PC.OV ---
Vital Signs 08/05/24 13:04 Height 4 ft 11 in Weight 102 lb BMI 20.6 BP 120/70 Blood Pressure Location Lt brachial Position Sitting Intake Visit Reasons: DANK from Dr. Gunderson Field Care Coordinator Required: No Accompanied by: Self / Same As Patient Allergies azithromycin Allergy (Severe, Verified 08/05/24 13:24) hives amoxicillin [AMOXICILLIN] Allergy (Intermediate, Verified 08/05/24 13:24) UNKNOWN doxycycline [DOXYCYCLINE] Allergy (Intermediate, Verified 08/05/24 13:24) Hives latex Allergy (Intermediate, Verified 08/05/24 13:24) Swelling Sulfa (Sulfonamide Antibiotics) [SULFA (SULFONAMIDE ANTIBIOTICS)] Allergy (Intermediate, Verified 08/05/24 13:24) HIVES Medication List - Last Reconciled 08/05/24 by Barbara Jorge MD albuterol sulfate 2.5 mg (3 mL) inhalation Q4-6H PRN albuterol sulfate 90 mcg/actuation (ProAir RespiClick) 2 inhalations inhalation Q4-6H PRN phjipqdevp-gdkqxzafyrgik-oviv 50-325-40 mg 1 tab PO Q6H PRN dicyclomine 20 mg (2 x 10 mg) PO QID ipratropium-albuterol 0.5 mg-3 mg(2.5 mg base)/3 mL 3 mL inhalation TID 30 days zolpidem 5 mg PO BEDTIME PRN Tobacco use date assessed: 04/19/24 Fall risk assessment: No Falls in past year Last assessed Fall Risk: 08/05/24 Dental Screening Dental Screen Date: 08/05/24 Did you have a dental visit in the last 12 months?: No Did you have a dental problem in the last 6 months where you did not have access to dental care?: No Was dental information given to patient?: Patient declined HPI HPI Comments History of Present Illness Details The patient is a 74-year-old female presenting with chronic earaches and fatigue. She reports persistent earaches that feel like being in a tunnel due to blockage, with sharp pain. Despite consulting multiple ENT specialists, no issues have been identified, although she has a history of severe earaches in childhood. The patient experiences significant fatigue, requiring frequent rest, and manages shakiness with candy, correlating with slightly elevated blood sugar levels. Her cholesterol was previously elevated at 269 mg/dL. She has osteoporosis and a history of tubular adenoma, with a colonoscopy planned for 2025. She received a pneumonia vaccine at 65 and needs a booster as she did not receive it at 66. Insomnia stable with zolpidem. [facility] Medical History (Updated 08/05/24 @ 15:46 by Barbara Jorge MD) Migraine headache Hiatal hernia Migraine Irritable bowel syndrome with constipation Asthma Surgical History History of bilateral carpal tunnel release History of esophagogastroduodenoscopy (EGD) Hx of colonoscopy H/O ventral hernia repair Family History Father Diabetes Mother Cancer Social History Housing: House Patient Tobacco Use Status: Former Tobacco user Tobacco use type: Cigarette Years Smoked: 20-25 yrs e-Cigarette/Vaping Use: Never Used Second Hand Smoke Exposure: No service: No Current occupational status: retired Cognitive needs: No Hearing needs: No Vision needs: No Questionnaire PHQ-9 Over the last 2 weeks, how often have you been bothered by any of the following problems? 1. Little interest or pleasure in doing things: not at all 2. Feeling down, depressed, or hopeless: not at all 3. Trouble falling or staying asleep, or sleeping too much: not at all 4. Feeling tired or having little energy: not at all 5. Poor appetite or overeating: not at all 6. Feeling bad about yourself - or that you are a failure or have let yourself or your family down: not at all 7. Trouble concentrating on things, such as reading the newspaper or watching television: not at all 8. Moving or speaking so slowly that other people could have noticed. Or the opposite - being so fidgety or restless that you have been moving around a lot more than usual: not at all 9. Thoughts that you would be better off or of hurting yourself in some way: not at all Total score: 0 Depression Screening Interpretation: Negative Depression Screening Done: Yes 02254 - PHQ-9 Billing: Yes Source: Developed by Drs. Cadence Ríos Kurt Kroenke and colleagues, with an educational sheng from [employer]. Thrive Questionnaire Date Thrive assessed: 04/19/24 AUDIT C Alcohol Use Questionnaire (AUDIT-C) 1. How often do you have a drink containing alcohol?: Never Total Score: 0 Score Reviewed/Action Taken: No JANIS-7 AMB Questionnaire JANIS-7 Date JANIS - 7 assessed: 08/05/24 Feeling nervous, anxious, or on edge: 0 = Not at all Not being able to stop or control worryin = Not at all Worrying too much about different things: 0 = Not at all Trouble relaxin = Not at all Being so restless that it is hard to sit still: 0 = Not at all Becoming easily annoyed or irritable: 0 = Not at all Feeling afraid as if something awful might happen: 0 = Not at all Total JANIS-7 score (0-4 normal; 5-9 mild; 10-14 moderate; 15-21 severe): 0 Source: Developed by Drs. Arthur Avila, Fabian Paz and colleagues, with an educational sheng from [employer]. JANIS-7 Assessment Billing JANIS-7 Assessment Tool: JANIS-7 Assessment 58433 Review of Systems Const All systems reviewed & are unremarkable except as noted in HPI and below Card Denies chest pain at rest, Denies chest pain with activity, Denies edema, Denies irregular heart rhythm, Denies claudication, Denies dyspnea, Denies dyspnea on exertion, Denies orthopnea, Denies paroxysmal nocturnal dyspnea and Denies slow heart rate Resp Denies cough, Denies dyspnea and Denies dyspnea on exertion GI Denies abdominal pain, Denies change in bowel habits, Denies excessive flatus, Denies nausea and Denies vomiting Denies urinary incontinence, Denies urinary hesitancy and Denies urinary urgency Physical exam (Primary Care) Vital Signs: Last Vital Signs BP 120/70 08/05/24 13:04 BMI result Body Mass Index 20.6 Tobacco/Smoking Status: Tobacco use Status Tobacco use date assessed 04/19/24 08/05/24 13:10 Patient Tobacco Use Status Former Tobacco user 08/05/24 13:10 Tobacco use type Cigarette 08/05/24 13:10 e-Cigarette/Vaping Use Never Used 08/05/24 13:10 PHQ-9: PHQ-9 Score PHQ-9: Total score 0 08/05/24 13:43 Depression Screening Interpretation: Negative Thrive Assessment: Date of Thrive Assessment Date Thrive assessed 04/19/24 08/05/24 13:10 Resp Effort & Inspection: normal respiratory effort Auscultation: clear to auscultation bilaterally Cardio Jugular venous distension: no JVD Rate: regular rate Rhythm: regular rhythm Heart sounds: S1 normal heart sound present and S2 normal heart sound present Extrem General: Yes full ROM Immunizations pneumoc 20-benji conj-dip cr(PF) 0.5 mL IM syringe Performing Provider: Barbara Jorge MD Performing Location: [facility] Administered by: DARLENE Amato on 08/05/24 13:43 Dose Route Admin Location Dispensed Lot Number Expiration Date NDC [place] 0.5 mL IM Left Deltoid 0.5 mL [id number] 07/21/25 [employer] VIS Given Date VIS Provided VIS Publication Date 08/05/24 Single Vaccine 22 Eligibility Eligibility Date Funding Source Not [facility] Eligible 08/05/24 Private Coding Level of Care Code Est Pt Level 4 (21850) Complex EM visit Add On G2211 Diagnoses Fatigue R53.83 Ear discomfort H92.09 Osteoporosis M81.0 Insomnia G47.00 Asthma J45.909 Migraine headache G43.909 Additional Codes JANIS-7 Assessment Billing - JANIS-7 Assessment Tool: JANIS-7 Assessment 41536 ([id number]) PHQ-9 - 65255 - PHQ-9 Billing: Yes ([id number]) Time Spent (min) 22 Assessment & Plan Assessment & Plan (1) Fatigue: Code(s): R53.83 - Other fatigue Category: Medical (2) Ear discomfort: Code(s): H92.09 - Otalgia, unspecified ear Category: Medical (3) Osteoporosis: Code(s): M81.0 - Age-related osteoporosis without current pathological fracture Category: Medical (4) Insomnia: Code(s): G47.00 - Insomnia, unspecified Category: Medical (5) Asthma: Code(s): J45.909 - Unspecified asthma, uncomplicated Category: Medical (6) Migraine headache: Code(s): G43.909 - Migraine, unspecified, not intractable, without status migrainosus Category: Medical Plan The patient will be referred to an ENT specialist for further evaluation of her chronic earaches, as previous consultations have not resolved the issue. A fasting blood test will be ordered to monitor her blood sugar levels due to concerns about prediabetes and associated symptoms of shakiness and fatigue. The patient will receive a pneumonia vaccine booster today, as she did not receive it at age 66. Her cholesterol levels will be re-evaluated, and lifestyle modifications will be discussed to address hypercholesterolemia. The patient will continue to manage her asthma with her current inhaler and follow up with her lung specialist as scheduled. She will be advised to use levocetirizine and nasal spray for her allergies, with a follow-up in four months to assess effectiveness. Patient was informed and verbally consented to the use of an ambient scribe for clinic note documentation during this visit. I discussed with the patient the need for an ENT referral to address her chronic earaches, as previous evaluations have not identified a cause. We talked about the importance of monitoring her blood sugar levels due to prediabetes and the need for a fasting blood test. I explained the necessity of receiving a pneumonia vaccine booster since she did not receive it at age 66. We reviewed her cholesterol levels and discussed potential lifestyle changes to manage hypercholesterolemia. I advised her to continue using her inhaler for asthma and to follow up with her lung specialist. We also discussed using levocetirizine and nasal spray for her allergies, with a follow-up in four months to evaluate their effectiveness. Orders: Orders Thyroid Stimulating Hormone Today R53.83 - Other fatigue IRON PROFILE Today D64.9 - Anemia, unspecified, R53.83 - Other fatigue Comprehensive [place]. Panel Fast Today R53.83 - Other fatigue Pneumococcal 20 Immunization Today Z23 - Encounter for immunization Complete Blood Count Auto Diff Today R53.83 - Other fatigue Vitamin D 25-OH Total Today E55.9 - Vitamin D deficiency, unspecified, R53.83 - Other fatigue Vitamin B12 and Folate Today E53.8 - Deficiency of other specified B group vitamins, R53.83 - Other fatigue Lipid Panel Today E78.5 - Hyperlipidemia, unspecified Medications: New levocetirizine 5 mg PO DAILY PRN 30 tabs 0RF allergy symptoms 30 days Refilled zolpidem 5 mg PO BEDTIME PRN 30 tabs 3RF sleep Patient Instructions: - Follow up with ENT specialist for earaches. - Get fasting blood test done to check blood sugar levels. - Receive pneumonia vaccine booster today. - Monitor cholesterol levels and consider lifestyle changes. - Continue using inhaler for asthma and follow up with lung specialist. - Use levocetirizine and nasal spray for allergies, and follow up in four months.
--- OUTSIDE RECORDS SUMMARY | 2024-08-05 14:15 | XMS_ITS | Patient Health Record ---
Author Organization [facility] Address [address] [place] [address] Care Team Providers Care Merchandise Team Manager Name Role Phone Ashvin Gunderson MD Primary Care Provider Arthur Crump Unavailable [phone] Pat Bryant Unavailable Unavailable Allergies Allergen (clinical [...] AT BEDTIME NEEDED Oral for 30 Active Avluweocym-FFYQ-Ocazsskn Active Albuterol PRN Active Immunizations Vaccine Route Administration Date Status Comme nts Influenza Unknown 10/22/2019 Administered Influenza Unknown 10/21/2020 Administered Problems Problem Type SNOMED Code ICD Code Onset Dates Problem Status W/U Status Risk Notes Problem Rectal bleeding (05582610) Rectal bleeding (K62.5) Active confirmed Problem 290299876 Encounter for screening for malignant neoplasm of colon (Z12.11) Active confirmed Problem 761100667 History of adenomatous polyp of colon (Z86.010) Active confirmed Problem History of polyp of colon (situation) (002863878) Personal history of colonic polyps (Z86.010) Active confirmed Problem Diverticular disease of colon (014897307) Diverticulosis of large intestine without perforation or abscess without bleeding (K57.30) Active confirmed Problem Screening for malignant neoplasm of rectum (018193471) Encounter for screening for malignant neoplasm of rectum (Z12.12) Active confirmed Problem 463466889 Gas (R14.3) Active confirmed Problem 763777652 Irritable bowel syndrome with constipation (K58.1) Active confirmed Problem Acute diarrhea (764106394) Acute diarrhea (R19.7) Active confirmed Plan Of Treatment Future Test Test Name Order Date UPPER GI ENDOSCOPY 07/24/2015 COLONOSCOPY 07/24/2015 COLONOSCOPY 07/07/2020 Insurance Providers Payer Name Payer Address Payer Phone Subscriber Number Group Number Insured Name Patient Relationship to Insured Coverage Start Date Coverage End Date MEDICARE OF [place] [address] [place] [address] [id number] BIANCA Ochoa JESSE Self - patient is the insured [facility] [address] [place] [address] [phone] [id number] ALBERTCARLITA JESSE Ochoa Self - patient is the insured Medical (General) History Medical History History ICD Code Denies PR,DM,CVA,renal disease Allergies Asthma IBS--constipation Headaches--Migraines--gets B otox injections from her neurologist, Dr. Lal EGD 09/2015--small hiatal her bill--normal duodenal biopsies, no esophagitis, no Dodge's Colonoscopy 09/2015 with 1 sm all hyperplastic polyp and 1 small tubular adenoma Negative colonoscopy in 08/2020 Surgical History Surgery Date(Month/Year) Bilateral carpal tunnel release Hernia repair--umbilical
== END 2024-08-05 13:46 | disposition home or self-care (01) ==
LOC: HO.HMCH 12:54
PROVIDERS: PCP Internal Medicine; Visit Provider Internal Medicine
DX: R53.83 Other fatigue (principal); H92.09 Otalgia, unspecified ear; M81.0 Age-related osteoporosis without current pathological fracture; G47.00 Insomnia, unspecified; J45.909 Unspecified asthma, uncomplicated; G43.909 Migraine, unspecified, not intractable, without status migrainosus; Z23 Encounter for immunization

== ENCOUNTER → 2024-08-05 12:53 | Outpatient (BNVA) | payer MEDICARE, OTHER, SELFPAY | PROVIDERS: PCP Internal Medicine; Visit Provider Internal Medicine | DX: Z23 Encounter for immunization (principal); M81.0 Age-related osteoporosis without current pathological fracture; R53.83 Other fatigue; H92.09 Otalgia, unspecified ear; G47.00 Insomnia, unspecified; J45.909 Unspecified asthma, uncomplicated; G43.909 Migraine, unspecified, not intractable, without status migrainosus | CPT/HCPCS: 90471; 90677; 96127; 99212 ==

== ENCOUNTER 2024-09-13 08:53 | Outpatient (REF) | payer MEDICARE, OTHER, SELFPAY ==
--- OUTSIDE RECORDS SUMMARY | 2024-09-13 09:08 | XMS_ITS | Patient Health Record ---
Author Organization [facility] Address [address] [place] [address] Care Team Providers Care Heating Operators Engineer Name Role Phone Ashvin Gunderson MD Primary Care Provider Arthur Crump Unavailable [phone] Pat Bryant Unavailable Unavailable Allergies Allergen (clinical [...] AT BEDTIME NEEDED Oral for 30 Active Ewjvjipxta-NOIO-Looozsji Active Albuterol PRN Active Immunizations Vaccine Route Administration Date Status Comme nts Influenza Unknown 10/22/2019 Administered Influenza Unknown 10/21/2020 Administered Problems Problem Type SNOMED Code ICD Code Onset Dates Problem Status W/U Status Risk Notes Problem Rectal bleeding (47660465) Rectal bleeding (K62.5) Active confirmed Problem 865401820 Encounter for screening for malignant neoplasm of colon (Z12.11) Active confirmed Problem 763579082 History of adenomatous polyp of colon (Z86.010) Active confirmed Problem History of polyp of colon (situation) (009972372) Personal history of colonic polyps (Z86.010) Active confirmed Problem Diverticular disease of colon (781463099) Diverticulosis of large intestine without perforation or abscess without bleeding (K57.30) Active confirmed Problem Screening for malignant neoplasm of rectum (786355368) Encounter for screening for malignant neoplasm of rectum (Z12.12) Active confirmed Problem 667385860 Gas (R14.3) Active confirmed Problem 829900436 Irritable bowel syndrome with constipation (K58.1) Active confirmed Problem Acute diarrhea (592275512) Acute diarrhea (R19.7) Active confirmed Plan Of Treatment Future Test Test Name Order Date UPPER GI ENDOSCOPY 07/24/2015 COLONOSCOPY 07/24/2015 COLONOSCOPY 07/07/2020 Insurance Providers Payer Name Payer Address Payer Phone Subscriber Number Group Number Insured Name Patient Relationship to Insured Coverage Start Date Coverage End Date MEDICARE OF [place] [address] [place] [address] [id number] BIANCA Ochoa JESSE Self - patient is the insured [facility] [address] [place] [address] [id number] ALBERTCARLITA JESSE Ochoa Self - patient is the insured Medical (General) History Medical History History ICD Code Denies [place],DM,CVA,renal disease Allergies Asthma IBS--constipation Headaches--Migraines--gets B otox injections from her neurologist, Dr. Lal EGD 09/2015--small hiatal her bill--normal duodenal biopsies, no esophagitis, no Dodge's Colonoscopy 09/2015 with 1 sm all hyperplastic polyp and 1 small tubular adenoma Negative colonoscopy in 08/2020 Surgical History Surgery Date(Month/Year) Bilateral carpal tunnel release Hernia repair--umbilical
--- OUTSIDE RECORDS SUMMARY | 2024-09-13 09:09 | XMS_ITS | Data Portability ---
Author Organization [facility], [facility] Address [address] [place] [address] Care Team Providers Care Programmer Or Analyst Name Role Phone CHAIM CANTU Referring Provider [phone] CHAIM CANTU Primary Care Provider Assessment No assessment recorded. Plan of Treatment Reminders Order Date Submit Date Provider Last Modified By Organization Details Last Modified Time Details Appointments None recorded. Lab None recorded. Referral occupationa l therapist referral - Diagnosis:F IRST DORSAL COMPARTMENT RELEASE LEFT 03/15/24 Custom molded orthosis: none Treatment: continue current care 2024 025 [email or web address] Not available 08:46:35 Procedures None recorded. Surgeries Dequervain' s release (SURG) 2023 025 [email or web address] [place], [address], [place], [address], 5 14:32:39 Imaging None recorded. Medication Orders None recorded. Patient TargetsNo targets recorded. Patient InstructionsNo instructions recorded. Reason for Referral Occupational Therapist Refer [facility] for Surgical follow-up Diagnosis:FIRST DORSAL COMPARTMENT RELEASE LEFT 03/15/24Custom molded orthosis: noneTreatment: continue current care Referring Physician: Clifford Chaparro, Orthopedic Surgery, Encounter Date: 04/26/2024 Procedures Surgical History Date Name Laterality Status Provider Name and Address Organization Details Recorded Time 5 JZCelestone Hand Inj completed Clifford Chaparro MD [address], [place], [address], [facility] 04/26/2024 12:06:34 5 Trigger Finger Kenalog Injection completed Clifford Chaparro MD [address] [facility], [place], [address], [facility] 04/26/2024 12:06:05 5 JZCelestone Hand Inj completed Clifford Chaparro MD [address] [facility], [place], [address], [facility] 03/04/2024 11:31:48 4 JZCelestone Wrist Tendon Inj completed Clifford Chaparro MD [address] [facility], [place], [address], [facility] 10/17/2023 16:54:26 4 JZCelestone Hand Inj completed Clifford Chaparro MD [address] [facility], [place], [address], [facility] 07/25/2023 07:44:12 4 JZCelestone Wrist Tendon Inj completed Clifford Chaparro MD [address] [facility], [place], [address], [facility] 07/25/2023 07:43:22 4 JZWrist Joint Inj Celestone completed Clifford Chaparro MD [address] [facility], [place], [address], [facility] 07/25/2023 07:46:07 4 JZCelestone Wrist Tendon Inj completed Clifford Chaparro MD [address], [place], [address], [facility] 07/25/2023 15:28:48 4 JZCelestone Wrist Tendon Inj completed Clifford Chaparro MD [address], [place], [address], [facility] 05/27/2023 07:18:26 Imaging Results None recorded. Procedure Notes None recorded. Medical Equipment None Reported. Allergies Allergen ID Allergen Name Allergen Category Reaction Reaction Severity Criticality Documentation Date Start Date Code Code System Note Provider Name and Address Organization Details Recorded Time 182114 amoxicill in medicatio n Not available Not available Not available 05/23/2023 723 RxNorm YASH caicedo [facility] 4 14:23:05 228730 sulfadiaz ine medicatio n Not available Not available Not available 05/23/2023 67359 RxNorm YASH caicedo [facility] 4 14:23:12 Medications Name Sig Start Date Stop Date Status Note LastModified by Organization Details LastModified Time ipratropium 0.5 mg-albuterol 3 mg (2.5 mg base)/3 mL nebulization soln 3 ML INHALED EVERY 4 TO 6 HOURS NEEDED FOR WHEEZING FOR 30 DAYS active Not Available Not Available No t Available albuterol sulfate 2.5 mg/3 mL (0.083 %) solution for nebulization 2.5 MG (3 ML) INHALED EVERY 4 TO 6 HOURS NEEDED FOR SHORTNESS OF BREATH OR WHEEZING active Not Available Not Available No t Available butalbital-ac etaminophen-c affeine 50 mg-325 mg-40 mg tablet TAKE 1 TABLET BY MOUTH EVERY 6 HOURS NEEDED HEADACHE active Not Available Not Available No t Available montelukast 10 mg tablet TAKE 1 TABLET BY MOUTH EVERYDAY AT BEDTIME active Not Available Not Available N ot Available zolpidem 5 mg tablet TAKE 1 TABLET BY MOUTH EVERY DAY AT BEDTIME NEEDED SLEEP active Not Available Not Available No t Available methylprednis olone 4 mg tablets in a dose pack [...] Not Available Not Available No t Available neomycin-poly myxin-hydroco rt 3.5 mg-10,000 unit/mL-1 % ear drops,susp INSTILL 4 DROPS INTO AFFECTED EAR(S) EVERY 8 HOURS active Not Available Not Available No t Available hydrocodone 7.5 mg-acetaminop hen 325 mg/15 mL oral solution 15 ML [...] Updated DateTime 03/04/2024 151.13 cm 19.9 kg/m2 01231.24 g [facility] 03/04/2024 09:58:30 Date Recorded Body height Body mass index (BMI) Body weight Provider Name and Address Organization Details Last Updated DateTime 04/26/2024 151.13 cm 19.9 kg/m2 19796.24 g [facility] 04/26/2024 11:38:19 Date Recorded Body height Body mass index (BMI) Body weight Provider Name and Address Organization Details Last Updated DateTime 06/07/2024 151.13 cm 19.9 kg/m2 37150.24 [facility] 06/07/2024 11:41:30 Date Recorded Body height Body mass index (BMI) Body weight Provider Name and Address Organization Details Last Updated DateTime 01/24/2024 151.13 cm 19.9 kg/m2 46528.24 g [facility] 01/24/2024 14:04:53 Social History None recorded. Functional Status None recorded. Mental Status None recorded. Family History Nothing Reported. Medical History No medical history recorded. Gynecological HistoryNo gynecological history recorded. Obstetrics History GPAL:G 0 P 0 0 0 0 Past Encounters Encounter ID Performer Location Encounter Start Date Encounter Closed Date Diagnosis/Indication Diagnosis SNOMED-CT Code Diagnosis ICD10 Code Diagnosis Note [id number] MD [facility] [address] [place] [address] 05/23/2023 13:51:35 06/05/2023 15:37:35 Bilateral wrist pain 3303613603 9324731 M25.531 M25.532 M79.644 Tenosynovi tis of left radial styloid 2450962291 3469049 M65.4 Bilateral arthritis of wrist 2986156989 019682 M13.831 M13.832 Tenosynovi tis of left wrist 2404082604 726733 M65.148 [id number] Clifford Chap[facility] [address] [place] [address] 07/03/2023 15:35:39 07/14/2023 08:10:05 Tenosynovitis of right radial styloid 2593696960 6442490 M65.4 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 4957276805 81747 M19.041 M19.042 Arthritis of first carpometacarpal joint of right hand 8356796381 725046 M13.918 [id number] Zeenat Ross OTR/L,T [facility] [address] [place] [address] 07/04/2023 13:24:12 07/04/2023 14:05:26 Osteoarthrosis of the carpometacarpal joint of the thumb 89635696 M18.9 [id number] Zeenat Ross OTR/L,T [facility] [address] [place] [address] 07/14/2023 11:02:03 07/14/2023 12:29:26 Osteoarthrosis of the carpometacarpal joint of the thumb 28150814 M18.9 The orthosis is assessed for style [...] tasks. Tenosynovi tis of right radial styloid 1081879918 7149234 M65.4 I suspect that she has an [...] Pain in fi nger of right hand 6589839533 88535 M79.644 The patient is also quite concerned [...] finds that her symptoms are aggravated . [id number] MD [facility] Taylor [address] [place] [address] [address] [place] [address] 07/24/2023 13:01:46 08/01/2023 13:10:07 Tenosynovitis of right radial styloid 8760777664 8546917 M65.4 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 7363817171 55360 M19.041 M19.702 [id number] MD [facility]ene Taylor [address] [place] [address] [address] [place] [address] 10/13/2023 11:15:12 11/06/2023 11:44:31 Tenosynovitis of left radial styloid 6174476607 6048899 M65.4 [id number] MD [facility] [address], [place] [address] 01/24/2024 13:55:11 02/24/2024 10:57:18 Tenosynovitis of wrist 524847721 M65.871 [id number] Clifford Chaparro MD [facility] [address], [place] [address] 03/04/2024 09:43:41 03/19/2024 12:36:40 Arthritis of first carpometacarpal joint of right hand 2857443447 615521 M18.11 Extensor tenosynovitis of wrist 976588350 M65.796 [id number] Zeenat Ross, OTR/L,CHT [facility] [address], [place] [address] 03/29/2024 09:55:16 03/29/2024 11:43:39 Postoperative visit 353004334 Z48.89 Plan: Surgical dressing is removed and [...] weeks postop. Tenosynovi tis of left wrist 6834475593 856420 M65.932 This visit was completed today under the supervisio n of Dr. Shankar Examinatio n: Upon removal of the postop dressing, [...] post left first dorsal compartmen t release [id number] MD [facility] Taylor [address] [place] [address] [address] [place] [address] 04/26/2024 11:19:55 05/14/2024 14:13:54 Surgical follow-up 947961854 Z48.89 Flexor ten osynovitis of finger 198870946 M65.949 Arthritis of first carpometacarpal joint of right hand 7030132334 893052 M18.11 [id number] MD [facility] Taylor [address] [facility] [address] [place] [address] 06/07/2024 11:35:15 06/20/2024 14:16:40 Extensor tenosynovitis of wrist 399697791 M65.932 Health Concerns Section Related Observation LastModified by Organization Detai ls LastModified Time None Recorded Concern Status LastModified by Organization Details LastModified Time None Recorded Advance Directives Directive None Recorded Payers Insurance Date Sequence Insurance Name Policy Number Policy Lofton Covered Member ID Lofton Member ID Guarantor Name 06/07/2024 1 [place] [employer] Kaylyn Chalifoux [id number] Kaylyn Chalifoux 06/20/2024 2 [facility] - PLAN 1 (MEDICARE SUPPLEMENT) [id number] Kaylyn Chalifoux [id number] Kaylyn Chalifoux 06/07/2024 [employer] - SPECIALITY CLAIMS (MEDICARE DME REGION A) Kaylyn Chalifoux [id number] Kaylyn Chalifoux Notes Date Note Type Note Provider Name and Address Organization Details Recorded Time 01/24/2024 text/html ROS as noted in the HPI Diagnosis: 1. De Quervain's tenosynovitis left wrist [...] reviewed, updated and is located in the patient s chart.Examination: Healthy appearing patient in no [...] consented to the procedure. Clifford Chaparro MD [address] [place], [place] [address], [place], [address], [facility] 01/27/2024 14:59:51 03/04/2024 text/html ROS as noted in the HPI Diagnosis: 1. De Quervain's tenosynovitis left wrist. Status post one innjection2. Pantrapezial arthritis bilateral wrists3. Severe osteoarthritis right index PIP joint4. Right de Quervain's tenosynovitis resolved with corticosteroid injection therapyThe patient returns at her request. She is describing severe pain over her left radial wrist.Past family, medical, social history and review of systems has been reviewed, updated and is located in the patient s chart.Examination: Healthy appearing patient in no [...] of the wrist. Clifford Chaparro MD [address], [place], [address], [facility] 03/04/2024 11:32:41 03/29/2024 text/html This is a 74-year-old woman who had the left first dorsal [...] meet with the surgeon VAN Mariano/Diomedes,CHT [address], [place], [address], [facility] 03/29/2024 10:44:01 04/26/2024 text/html ROS as noted in the HPI Diagnosis: 1. Status post left first dorsal compartment release 2. Bilateral first CMC arthritis 3. Flexor tenosynovitis left middle finger The patient presents at our request. She is describing a burning pain over the radial aspect of her wrist. She describes a sharp pain in her dorsal thumb on the left. She has triggering of her left middle finger and pain at the base of her right thumb. Past family, medical, social history and review of systems has been reviewed, updated and is located in the patient s chart. Examination: Healthy appearing patient in no apparent distress. Alert and oriented. Decreased left wrist range of motion compared to the right. Provocative testing the right wrist reveals a positive first CMC grind and compression test. Provocative testing left wrist reveals a positive first CMC grind and compression test and continued pain with Steve's maneuver. She has triggering of her left middle finger. No atrophy in either upper extremity. Brisk capillary refill in all digits Plan: The patient and I discussed her situation at length. I recommended continued therapy on the left. We have agreed to proceed with corticosteroid injections into the flexor tendon sheath of her left middle finger and her right first CMC joint. She tolerated this well. She will follow-up at 6 weeks. Clifford Chaparro MD [address], [place], [address], [facility] 04/26/2024 12:07:40 06/07/2024 text/html ROS as noted in the HPI Diagnosis: Status post left first dorsal compartment release The patient returns at our request. She reports that she has a burning sensation over the radial aspect of her left wrist. She rates this as an 8/10 in severity. Past family, medical, social history and review of systems has been reviewed, updated and is located in the patient s chart. Examination: Healthy appearing patient in no apparent distress. Alert and oriented. While the patient talks she moves her hand freely. There is no sign of pain. She has decreased left wrist range of motion compared to the right. Provocative testing of both wrist reveals negative Steve's test. No atrophy in either upper extremity. Brisk capillary refill in all digits Plan: The patient and I discussed her situation at length. I have recommended that she continue her home program of exercises. I am confident that in time the burning sensation will resolve. She will follow-up with me at her discretion. She is comfortable with this plan. Clifford Chaparro MD [address], [place], [address], [facility] 06/07/2024 12:10:53 OBGyn Episode No OBEpisode recorded.
--- OUTSIDE RECORDS SUMMARY | 2024-09-13 09:09 | XMS_ITS | Patient Health Record ---
Author Organization [facility] jennifer [place] Address [address] [place] [address] Care Team Providers Care Quality Management Coordinator Name Role Phone Jalyn MUNOZ, Ashvin Primary Care Provider Ron Tello Unavailable [phone] Allergies Allergen (clinical drug ingredient) Drug/Non Drug [...] Duration) Notes Start Date End Date Status Vqaqbipgap-PKWL-Dgzcckys 50-325-40 MG TAKE 1 TABLET BY MOUTH EVERY SIX HOURS NEEDED Oral; Duration: 7 PRN Active Dicyclomine HCl PRN Acti [...] Status Risk Notes Problem Acquired hallux valgus (53843058) Hallux valgus (acquired), left foot (M20.12) Active confirmed Problem Non-pressure chronic ulcer of other part of right foot with fat layer exposed (L97.512) Active confirmed Problem Chronic ulcer of foot (091550239) Non-pressure chronic ulcer of other part of left foot with fat layer exposed (L97.522) Active confirmed Problem Acquired hallux valgus (87011247) Hallux valgus (acquired), right foot (M20.11) Active confirmed Plan Of Treatment No Information Insurance Providers Payer Name Payer Address Payer Phone Subscriber Number Group Number Insured Name Patient Relationship to Insured Coverage Start Date Coverage End Date Medicare National Govt Svcs Inc [address] [place] [address] [id number] Kaylyn Mcqueen Self - patient is the insured [facility] [address] [place] [address] [id number] Kaylyn Mcqueen Self - patient is the insured Medical (General) History Medical History History ICD Code Arthritis asthma Headaches/Migraines Surgical History Surgery Date(Month/Year) Hernia Late Carpal Tunnel 2000
[2024-09-13 09:12] LABS: MANUAL DIFF FLAG NO
[2024-09-13 09:43] LABS: Hematocrit 41.6 % (37.0-47.0); Hemoglobin 14.1 g/dl (12.0-16.0); Imm Gran Abs Auto 0.01 X10*3/uL (0.00-0.03); Imm Gran Pct Auto 0.2 % (0.0-0.4); Lymphocytes Absolute Auto 2.0 X10*3/uL (1.2-4.9); Mean Corpuscular HGB Conc 33.9 g/dl (31.0-35.0); Mean Corpuscular Hemoglobin 31.2 pg (27.0-33.0); Mean Corpuscular Volume 92.0 fL (80.0-98.0); NRBC Abs Auto 0.000 X10*3/uL (0.0-0.012); NRBC Pct Auto 0.0 /100WBC (0.0-0.2); Platelet Count 346 X10*3/uL (160-400); Red Blood Count 4.52 X10*6/uL (4.20-5.50); White Blood Count 6.3 X10*3/uL (4.8-10.8)
[2024-09-13 10:19] LABS: Alanine Aminotransferase 17 U/L (0-31); Albumin Level 4.4 g/dL (3.5-5.0); Alkaline Phosphatase 116 U/L (39-117); Anion Gap 11 (12-20); Aspartate Amino Transferase 23 U/L (5-31); Blood Urea Nitrogen 7 mg/dL (9-16); Calcium 9.1 mg/dL (8.4-10.2); Carbon Dioxide 27 mmol/L (22-29); Chloride 103 mmol/L (96-108); Cholesterol 241 mg/dL (<200); Estimated Glomerular Filt Rate > 60; HDL Cholesterol 71 mg/dL (>40); Iron 148 mcg/dL (30-160); Percent Iron Saturation 49 % (15-50); Potassium 4.8 mmol/L (3.3-5.1); Sodium 136 mmol/L (135-145); Total Iron Binding Capacity 299 mcg/dL (228-428); Total Protein 7.0 g/dL (6.5-8.0); Triglycerides 92 mg/dL (<150); Unsaturated Iron Binding 151 ug/dL
[2024-09-13 10:36] LABS: Thyroid Stimulating Hormone 0.92 uIU/mL (0.32-4.0)
[2024-09-13 10:44] LABS: Folate 14.8 ng/mL (> or = 4.0); Vitamin B12 214 pg/mL (200-900)
== END 2024-09-13 08:54 | disposition home or self-care (01) ==
LOC: HO.LAB 08:53
PROVIDERS: PCP Internal Medicine; Visit Provider Internal Medicine
DX: E53.8 Deficiency of other specified B group vitamins (principal); R53.83 Other fatigue; D64.9 Anemia, unspecified; E55.9 Vitamin D deficiency, unspecified; E78.5 Hyperlipidemia, unspecified
CPT/HCPCS: 36415; 80053; 80061; 82306; 82607; 82746; 83540; 84443; 85025

== ENCOUNTER 2024-09-24 13:19 | Outpatient (AMB) | payer MEDICARE, OTHER, SELFPAY ==
[2024-09-24 13:24] VITALS: BP 100/60; PULSE 84; O2SAT 95; BMI 20.8
--- NOTE | 2024-09-24 13:24 | MHC.OFFVIS ---
Vital Signs 09/24/24 13:24 Height 4 ft 11 in Weight 103 lb BMI 20.8 BP 100/60 Blood Pressure Location Lt brachial Position Sitting Pulse 84 Pulse Source Pulse Oximeter Pulse Oximetry (%) 95 Oxygen Delivery Method Room Air Intake Visit Reasons: Shortness of breath Allergies azithromycin Allergy (Severe, Verified 09/24/24 13:30) hives amoxicillin (AMOXICILLIN) Allergy (Intermediate, Verified 09/24/24 13:30) UNKNOWN doxycycline (DOXYCYCLINE) Allergy (Intermediate, Verified 09/24/24 13:30) Hives latex Allergy (Intermediate, Verified 09/24/24 13:30) Swelling Sulfa (Sulfonamide Antibiotics) (SULFA (SULFONAMIDE ANTIBIOTICS)) Allergy (Intermediate, Verified 09/24/24 13:30) HIVES HPI HPI Shortness of breath: Details: 74-year-old lady, former approximately 15 pack-year smoker, quit 20 years prior, followed for severe persistent asthma and environmental allergies. She has been tried on Xolair, however she developed side effects from its use. She is not able to afford inhaled inhaled steroid/long-acting beta agonist or short acting beta agonist either. She has been tried on Nucala, however she denies any symptomatic improvement. Patient also complains of headache when using nebulized budesonide and albuterol or Singulair. She has been using albuterol MDI and duo nebs with suboptimal control of his symptoms. She is agreeing to try Dupixent. [facility], [facility] Medical History Migraine headache Hiatal hernia Migraine Irritable bowel syndrome with constipation Asthma Surgical History History of bilateral carpal tunnel release History of esophagogastroduodenoscopy (EGD) Hx of colonoscopy H/O ventral hernia repair Family History Father Diabetes Mother Cancer Social History Housing: House Patient Tobacco Use Status: Former Tobacco user Tobacco use type: Cigarette Years Smoked: 20-25 yrs e-Cigarette/Vaping Use: Never Used Second Hand Smoke Exposure: No service: No Current occupational status: retired Cognitive needs: No Hearing needs: No Vision needs: No Review of Systems Const Denies daytime sleepiness, Denies excessive sweating, Denies fatigue, Denies fever(s), Denies lethargy, Denies malaise, Denies night sweats, Denies snoring and Denies weight loss Eyes Denies blurry vision and Denies itchy eyes ENT Denies nasal congestion, Denies post nasal drip, Denies sinus pain, Denies sinus pressure and Denies other ( Thrush) Card Denies chest pain, Denies pedal edema, Denies dyspnea, Denies orthopnea and Denies paroxysmal nocturnal dyspnea Resp Denies cough, Denies hemoptysis, Denies excessive phlegm production, Denies dyspnea, Denies snoring and Denies wheezing GI Denies abdominal pain and Denies heartburn Musc Denies myalgias, Denies arthralgias and Denies joint swelling Skin/Breast Denies rash Neuro Denies memory loss and Denies seizure-like activity Psych Denies abnormal sleep pattern, Denies anxiety and Denies memory loss Endo Denies excessive sweating, Denies fatigue and Denies heat intolerance Bob/Lymph Denies easy bruising Aller/Immun Denies itchy eyes, Denies seasonal rhinorrhea and Denies wheezing Physical Exam Vital Signs: Last Vital Signs Pulse 84 09/24/24 13:24 BP 100/60 09/24/24 13:24 Pulse Ox 95 09/24/24 13:24 Oxygen Delivery Method Room Air 09/24/24 13:24 BMI result Body Mass Index 20.8 Const General: no acute distress and alert Nutritional Appearance: not obese Orientation/consciousness: Other orientation findings ( oriented) HEENT Head: Yes atraumatic Eyes General: appearance normal, both eyes and all related structures Sclerae: sclerae normal EOM: EOMs intact bilaterally Neck Neck: Yes supple Lymphatic: no lymphadenopathy noted Resp Effort & Inspection: normal respiratory effort and no use of accessory muscles Auscultation: clear to auscultation bilaterally Cardio Rate: regular rate Rhythm: regular rhythm Heart sounds: no gallops, no murmurs and no rubs Skin General skin exam: other ( warm) Extrem General: No clubbing, No cyanosis and No edema Assessment & Plan Assessment & Plan (1) Severe persistent allergic asthma: Code(s): J45.50 - Severe persistent asthma, uncomplicated Category: Medical Plan: Suboptimal control, expect to improve on Dupixent. Continue albuterol and duo nebs. (2) Environmental allergies: Code(s): Z91.09 - Other allergy status, other than to drugs and biological substances Category: Medical Plan: Results of immunologic workup reviewed, patient does not have significant eosinophilia. Expect symptoms to improve on Dupixent. Coding Level of Care Code Est Pt Level 4 (93631) Diagnoses Severe persistent allergic asthma J45.50 Environmental allergies Z91.09
--- OUTSIDE RECORDS SUMMARY | 2024-09-24 13:59 | XMS_ITS | Patient Health Record ---
Author Organization [facility] jennifer [place] Address [address] [place] [address] Care Team Providers Care Neurology Teacher Name Role Phone Jalyn MUNOZ, Ashvin Primary Care Provider Ron Tello Unavailable [phone] Allergies Allergen (clinical drug ingredient) Drug/Non Drug [...] Duration) Notes Start Date End Date Status Embpebrcod-UBVN-Laxqywrp 50-325-40 MG TAKE 1 TABLET BY MOUTH [...] Status Risk Notes Problem Acquired hallux valgus (90151417) Hallux valgus (acquired), left foot (M20.12) Active confirmed Problem Non-pressure chronic ulcer of other part of right foot with fat layer exposed (L97.512) Active confirmed Problem Chronic ulcer of foot (459201625) Non-pressure chronic ulcer of other part of left foot with fat layer exposed (L97.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) Active confirmed Problem Acquired hallux valgus (07014847) Hallux valgus (acquired), right foot (M20.11) Active confirmed Plan Of Treatment No Information Insurance Providers Payer Name Payer Address Payer Phone Subscriber Number Group Number Insured Name Patient Relationship to Insured Coverage Start Date Coverage End Date Medicare National Govt Svcs Inc [address] [place] [address] [id number] Kaylyn Mcqueen Self - patient is the insured [facility] [address] [facility] [place] [address] [phone] [id number] Kaylyn Mcqueen Self - patient is the insured Medical (General) History Medical History History ICD Code Arthritis asthma Headaches/Migraines Surgical History Surgery Date(Month/Year) Hernia Late Carpal Tunnel 2000
--- OUTSIDE RECORDS SUMMARY | 2024-09-24 13:59 | XMS_ITS | Patient Health Record ---
Author Organization [facility] Address [address] [place] [address] Care Team Providers Care Script Editor Name Role Phone Ashvin Gunderson MD Primary Care Provider Arthur Crump Unavailable [phone] Pat Bryant Unavailable Unavailable Allergies Allergen (clinical [...] AT BEDTIME NEEDED Oral for 30 Active Wtmkrvqays-WXZB-Wvzlwckm Active Albuterol PRN Active Immunizations Vaccine Route Administration Date Status Comme nts Influenza Unknown 10/22/2019 Administered Influenza Unknown 10/21/2020 Administered Problems Problem Type SNOMED Code ICD Code Onset Dates Problem Status W/U Status Risk Notes Problem Rectal bleeding (62970975) Rectal bleeding (K62.5) Active confirmed Problem 876527736 Encounter for screening for malignant neoplasm of colon (Z12.11) Active confirmed Problem 275022237 History of adenomatous polyp of colon (Z86.010) Active confirmed Problem History of polyp of colon (situation) (377852377) Personal history of colonic polyps (Z86.010) Active confirmed Problem Diverticular disease of colon (581135952) Diverticulosis of large intestine without perforation or abscess without bleeding (K57.30) Active confirmed Problem Screening for malignant neoplasm of rectum (596716844) Encounter for screening for malignant neoplasm of rectum (Z12.12) Active confirmed Problem 982295631 Gas (R14.3) Active confirmed Problem 843655165 Irritable bowel syndrome with constipation (K58.1) Active confirmed Problem Acute diarrhea (975151460) Acute diarrhea (R19.7) Active confirmed Plan Of Treatment Future Test Test Name Order Date UPPER GI ENDOSCOPY 07/24/2015 COLONOSCOPY 07/24/2015 COLONOSCOPY 07/07/2020 Insurance Providers Payer Name Payer Address Payer Phone Subscriber Number Group Number Insured Name Patient Relationship to Insured Coverage Start Date Coverage End Date MEDICARE OF [place] [address] [place] [address] [id number] BIANCA Ochoa JESSE Self - patient is the insured [facility] [address] [place] [address] [phone] [id number] ALBERTCARLITA JESSE Ochoa Self - patient is the insured Medical (General) History Medical History History ICD Code Denies SD,DM,CVA,renal disease Allergies Asthma IBS--constipation Headaches--Migraines--gets B otox injections from her neurologist, Dr. Lal EGD 09/2015--small hiatal her bill--normal duodenal biopsies, no esophagitis, no Dodge's Colonoscopy 09/2015 with 1 sm all hyperplastic polyp and 1 small tubular adenoma Negative colonoscopy in 08/2020 Surgical History Surgery Date(Month/Year) Bilateral carpal tunnel release Hernia repair--umbilical
== END 2024-09-24 13:46 | disposition home or self-care (01) ==
LOC: HO.HPS 13:19
PROVIDERS: PCP Internal Medicine; Visit Provider Internal Medicine Pulmonary Disease
DX: J45.50 Severe persistent asthma, uncomplicated (principal); Z91.09 Other allergy status, other than to drugs and biological substances
CPT/HCPCS: 99214

== ENCOUNTER → 2024-09-24 13:19 | Outpatient (BNVA) | payer MEDICARE, OTHER, SELFPAY | PROVIDERS: PCP Internal Medicine; Visit Provider Internal Medicine Pulmonary Disease | DX: J45.50 Severe persistent asthma, uncomplicated (principal); Z91.09 Other allergy status, other than to drugs and biological substances | CPT/HCPCS: 99212 ==

== ENCOUNTER 2024-12-09 13:41 | Outpatient (AMB) | payer MEDICARE, OTHER, SELFPAY ==
[2024-12-09 14:10] VITALS: BP 124/72; PULSE 95; RESP 18; TEMP 34; O2SAT 94; BMI 20.8
--- NOTE | 2024-12-09 14:10 | MHC.PC.OV ---
Vital Signs 12/09/24 14:10 Height 4 ft 11 in Weight 103 lb BMI 20.8 BP 124/72 Blood Pressure Location Lt brachial Position Sitting Respiration 18 Pulse 95 Pulse Source Pulse Oximeter Temp 93.2 F L Temp Source Temporal Artery Scan Pulse Oximetry (%) 94 Oxygen Delivery Method Room Air Intake Visit Reasons: insomnia Shift Supervisor Melting Required: No Accompanied by: Self / Same As Patient Allergies azithromycin Allergy (Severe, Verified 12/09/24 14:31) hives amoxicillin (AMOXICILLIN) Allergy (Intermediate, Verified 12/09/24 14:31) UNKNOWN doxycycline (DOXYCYCLINE) Allergy (Intermediate, Verified 12/09/24 14:31) Hives latex Allergy (Intermediate, Verified 12/09/24 14:31) Swelling Sulfa (Sulfonamide Antibiotics) (SULFA (SULFONAMIDE ANTIBIOTICS)) Allergy (Intermediate, Verified 12/09/24 14:31) HIVES omeprazole Adverse Reaction (Intermediate, Verified 12/09/24 14:37) Abdominal Pain Medication List - Last Reconciled 12/09/24 by Barbara Jorge MD albuterol sulfate 90 mcg/actuation (ProAir RespiClick) 2 inhalations inhalation Q4-6H PRN albuterol sulfate 2.5 mg (3 mL) inhalation Q4-6H PRN tjzuwjnqrg-zwpnvocmexdpx-girk 50-325-40 mg 1 tab PO Q6H PRN ciprofloxacin HCl 0.2% 5 drps otic (ears) BID 7 days dicyclomine 20 mg (2 x 10 mg) PO QID dupilumab (Dupixent) 300 mg (2 mL) subcut QWEEK hydrocodone-acetaminophen 7.5-325 mg/15 mL 15 mL PO Q4-6H PRN ipratropium-albuterol 0.5 mg-3 mg(2.5 mg base)/3 mL 3 mL inhalation TID 30 days levocetirizine 5 mg PO DAILY PRN 30 days whwjnght-uyadhtcsm-YB 3.5-10,000-1 mg/mL-unit/mL-% 4 drps otic (ear) left Q8H 7 days zolpidem 5 mg PO BEDTIME PRN Tobacco use date assessed: 12/09/24 Fall risk assessment: No Falls in past year Last assessed Fall Risk: 12/09/24 Dental Screening Dental Screen Date: 12/09/24 Did you have a dental visit in the last 12 months?: Yes Did you have a dental problem in the last 6 months where you did not have access to dental care?: No Was dental information given to patient?: Patient has dentist HPI HPI Comments History of Present Illness Details The patient is a 74-year-old female presenting with management of chronic sore throat and suspected gastroesophageal reflux disease. The sore throat has been persistent, and an ENT specialist suggested possible GERD, although the patient denies typical heartburn symptoms. She was prescribed omeprazole, which caused severe abdominal pain, leading to its discontinuation. The patient also reports episodes of vertigo, which have been attributed to possible dehydration and are associated with dizziness and nausea. She uses meclizine for symptomatic relief, although the medication is outdated. Insomnia stable with zolpidem as needed. Chronic fatigue is another concern, particularly postprandial fatigue, which the patient experiences regularly. The patient has a history of elevated cholesterol, and a repeat test is planned in six months. The patient experiences migraines and is considering a referral to a neurologist for further management. [facility] Medical History (Updated 12/09/24 @ 15:14 by Barbara Jorge MD) Migraine headache Hiatal hernia Migraine Irritable bowel syndrome with constipation Asthma Surgical History History of bilateral carpal tunnel release History of esophagogastroduodenoscopy (EGD) Hx of colonoscopy H/O ventral hernia repair Family History Father Diabetes Mother Cancer Social History Housing: House Patient Tobacco Use Status: Former Tobacco user Tobacco use type: Cigarette Years Smoked: 20-25 yrs e-Cigarette/Vaping Use: Never Used Second Hand Smoke Exposure: No service: No Current occupational status: retired Cognitive needs: No Hearing needs: No Vision needs: No Questionnaire PHQ-9 Over the last 2 weeks, how often have you been bothered by any of the following problems? 1. Little interest or pleasure in doing things: not at all 2. Feeling down, depressed, or hopeless: not at all 3. Trouble falling or staying asleep, or sleeping too much: not at all 4. Feeling tired or having little energy: nearly every day 5. Poor appetite or overeating: not at all 6. Feeling bad about yourself - or that you are a failure or have let yourself or your family down: not at all 7. Trouble concentrating on things, such as reading the newspaper or watching television: not at all 8. Moving or speaking so slowly that other people could have noticed. Or the opposite - being so fidgety or restless that you have been moving around a lot more than usual: not at all 9. Thoughts that you would be better off or of hurting yourself in some way: not at all Total score: 3 Depression Screening Interpretation: Positive Depression Screening Follow-up: Existing condition and Follow-up Visit Requested Depression Screening Done: Yes 38062 - PHQ-9 Billing: Yes Source: Developed by Drs. Arthur Avila, Cadence Murphy, Fabian Melo and colleagues, with an educational sheng from [employer]. Thrive Questionnaire Date Thrive assessed: 12/09/24 I am a: Patient What is your living situation today?: I choose not to answer this question Within the past 12 months, did the food you bought not last and you didn't have the money to get more?: I choose not to answer this question Within the past 12 months, did you worry whether your food would run out before you got money to buy more?: I choose not to answer this question Do you have trouble paying for medicines?: I choose not to answer this question Do you have trouble getting transportation to medical appointments?: I choose not to answer this question Do you have trouble paying your heating and electricity bill?: I choose not to answer this question Do you have trouble taking care of your child, family member or friend?: I choose not to answer this question Do you have trouble with day-to-day activities such as bathing, preparing meals, shopping, managing finances, etc.?: I choose not to answer this question Are you currently unemployed and looking for a job?: I choose not to answer this question Are you interested in more education?: I choose not to answer this question Please select the resources that you would like help with: None Currently or been in a relationship where the following occur: I choose not to answer THRIVE Score: 0 JANIS-7 AMB Questionnaire JANIS-7 Date JANIS - 7 assessed: 08/05/24 Source: Developed by Drs. Arthur Avila, Cadence Murphy, Fabian Melo and colleagues, with an educational sheng from [employer]. Review of Systems Const All systems reviewed & are unremarkable except as noted in HPI and below Card Denies chest pain at rest, Denies chest pain with activity, Denies edema, Denies irregular heart rhythm, Denies claudication, Denies dyspnea, Denies dyspnea on exertion, Denies orthopnea, Denies paroxysmal nocturnal dyspnea and Denies slow heart rate Resp Denies cough, Denies dyspnea and Denies dyspnea on exertion GI Denies abdominal pain, Denies change in bowel habits, Denies excessive flatus, Denies nausea and Denies vomiting Physical exam (Primary Care) Vital Signs: Last Vital Signs Temp 93.2 F L 12/09/24 14:10 Pulse 95 12/09/24 14:10 Resp 18 12/09/24 14:10 BP 124/72 12/09/24 14:10 Pulse Ox 94 12/09/24 14:10 Oxygen Delivery Method Room Air 12/09/24 14:10 BMI result Body Mass Index 20.8 Tobacco/Smoking Status: Tobacco use Status Tobacco use date assessed 12/09/24 12/09/24 14:13 Patient Tobacco Use Status Former Tobacco user 12/09/24 14:13 Tobacco use type Cigarette 12/09/24 14:13 e-Cigarette/Vaping Use Never Used 12/09/24 14:13 PHQ-9: PHQ-9 Score PHQ-9: Total score 3 12/09/24 14:35 Depression Screening Interpretation: Positive Depression Screening Follow-up: Existing condition and Follow-up Visit Requested Thrive Assessment: Date of Thrive Assessment Date Thrive assessed 12/09/24 12/09/24 14:13 Currently or been in a relationship where the following occur: I choose not to answer Resp Effort & Inspection: normal respiratory effort Auscultation: clear to auscultation bilaterally Cardio Jugular venous distension: no JVD Rate: regular rate Rhythm: regular rhythm Heart sounds: S1 normal heart sound present and S2 normal heart sound present Extrem General: Yes full ROM Office Procedures Flu Questionnaire Does the patient have a severe egg allergy?: No Does the patient have severe life threatening allergies?: No Does the patient have a fever or illness today?: No Has the patient ever had Guillain-[place] Syndrome?: No Has the patient ever had any past reaction to a flu shot?: No Immunizations Fluarix [id number] (PF) 45 mcg (15 mcg x 3)/0.5 mL IM syringe Performing Provider: Barbara Jorge MD [facility] Administered by: Ashley Blanco CMA on 12/09/24 14:48 Dose Route Admin Location Dispensed Lot Number Expiration Date [employer]DC Medical Laboratory Scientist 0.5 mL IM Left Deltoid 0.5 mL [id number] 08/19/25 [id number] [employer] VIS Given Date VIS Provided VIS Publication Date 12/09/24 Single Vaccine 24 Eligibility Eligibility Date Funding Source Not [facility] Eligible 12/09/24 Private Coding Level of Care Code Est Pt Level 4 (90473) Complex EM visit Add On G2211 Diagnoses Migraine headache G43.909 Insomnia G47.00 Fatigue R53.83 Dyslipidemia E78.5 Additional Codes PHQ-9 - 42354 - PHQ-9 Billing: Yes ([id number]) Time Spent (min) 22 Assessment & Plan Assessment & Plan (1) Migraine headache: Code(s): G43.909 - Migraine, unspecified, not intractable, without status migrainosus Category: Medical (2) Insomnia: Code(s): G47.00 - Insomnia, unspecified Category: Medical (3) Fatigue: Code(s): R53.83 - Other fatigue Category: Medical (4) Dyslipidemia: Code(s): E78.5 - Hyperlipidemia, unspecified Category: Medical Plan Plan 1. Dizziness and giddiness R42 The patient was advised to continue using meclizine for symptomatic relief of vertigo, and a refill was provided. 2. Chronic fatigue, unspecified R53.82 The patient will have her cholesterol levels rechecked in six months, and additional tests for vitamin deficiencies related to fatigue will be conducted. 3. Migraine, unspecified, not intractable, without status migrainosus G43.909 A referral to a neurologist was discussed for further management of migraines. 4. Insomnia, unspecified G47.00 Continue Zolpidem prn. Orders: Orders Vitamin B12 and Folate 6 Months E53.8 - Deficiency of other specified B group vitamins Complete Blood Count Auto Diff 6 Months D64.9 - Anemia, unspecified Thyroid Stimulating Hormone 6 Months R53.83 - Other fatigue Vitamin D 25-OH Total 6 Months E55.9 - Vitamin D deficiency, unspecified Lipid Panel 6 Months E78.5 - Hyperlipidemia, unspecified IRON PROFILE 6 Months D64.9 - Anemia, unspecified Comprehensive Met. Panel 6 Months G43.909 - Migraine, unspecified, not intractable, without status migrainosus Influenza [id number] Immunization Today Z23 - Encounter for immunization Referrals Neurology Referral G43.909 - Migraine, unspecified, not intractable, without status migrainosus Medications: New ondansetron 8 mg PO Q12H PRN 60 tabs 1RF nausea and vomiting 30 days meclizine 25 mg PO BID PRN 60 tabs 0RF dizziness 30 days
--- OUTSIDE RECORDS SUMMARY | 2024-12-09 16:54 | XMS_ITS | Patient Health Record ---
Author Organization [facility] Address [address] [place] [address] Care Team Providers Care Armored Truck Driver Name Role Phone Barbara Damon Primary Care Provider Unavailab Arthur Campos Unavailable [phone] Pat Bryant Unavailable Unavailable Allergies Allergen (clinical [...] 1 TABLET BY MOUTH AT BEDTIME NEEDED Oral; Duration: 30 Active Ivmfzfvxcj-UUPK-Opqlsptt Active Albuterol PRN Active Immunizations Vaccine Route Administration Date Status Comme nts Influenza Unknown 10/22/2019 Administered Influenza Unknown 10/21/2020 Administered Problems Problem Type SNOMED Code ICD Code Onset Dates Problem Status W/U Status Risk Notes Problem Rectal bleeding (26682815) Rectal bleeding (K62.5) Active confirmed Problem Screening for malignant neoplasm of colon (130893565) Encounter for screening for malignant neoplasm of colon (Z12.11) Active confirmed Problem History of adenomatous polyp of colon (089697253) History of adenomatous polyp of colon (Z86.010) Active confirmed Problem History of polyp of colon (situation) (049806370) Personal history of colonic polyps (Z86.010) Active confirmed Problem Diverticular disease of colon (461828459) Diverticulosis of large intestine without perforation or abscess without bleeding (K57.30) Active confirmed Problem Screening for malignant neoplasm of rectum (581832072) Encounter for screening for malignant neoplasm of rectum (Z12.12) Active confirmed Problem Gas (18395829) Gas (R14.3) Active confirmed Problem Irritable bowel syndrome characterized by constipation (857448850) Irritable bowel syndrome with constipation (K58.1) Active confirmed Problem Acute diarrhea (169082046) Acute diarrhea (R19.7) Active confirmed Plan Of Treatment Future Test Test Name Order Date UPPER GI ENDOSCOPY 07/24/2015 COLONOSCOPY 07/24/2015 COLONOSCOPY 07/07/2020 Next Appt Details Provider Name:Arthur De La Cruz , 01/09/2025 09:40:00 AM, [address] [facility] [address], [address], [place], [address], Insurance Providers Payer Name Payer Address Payer Phone Subscriber Number Group Number Insured Name Patient Relationship to Insured Coverage Start Date Coverage End Date MEDICARE OF [place] [address] [place] [address] [phone] [id number] JESSE SOLANO Self - patient is the insured [facility] [address] [place] [phone] [id number] BIANCA Ochoa JESSE Self - patient is the insured Medical (General) History Medical History History ICD Code Denies RI,DM,CVA,renal disease Allergies Asthma IBS--constipation Headaches--Migraines--gets B otox injections from her neurologist, Dr. Lal EGD 09/2015--small hiatal her bill--normal duodenal biopsies, no esophagitis, no Dodge's Colonoscopy 09/2015 with 1 sm all hyperplastic polyp and 1 small tubular adenoma Negative colonoscopy in 08/2020 Surgical History Surgery Date(Month/Year) Bilateral carpal tunnel release Hernia repair--umbilical
--- OUTSIDE RECORDS SUMMARY | 2024-12-09 16:54 | XMS_ITS | Patient Health Record ---
Author Organization [facility] Address [address] [place] [address] Care Team Providers Care Boat Driver Name Role Phone Lucio MUNOZ, Barbara Primary Care Provider Unavail able Luli Kaur Unavailable [phone] Allergies Allergen (clinical drug ingredient) Drug/Non Drug [...] Duration) Notes Start Date End Date Status Fryztejlno-YEXH-Odzgcaqp 50-325-40 MG TAKE 1 TABLET BY MOUTH [...] Date Details (start date - stop date) Never Smoker NA - NA Tobacco use other than smoking: Question Answer Notes Are you an other tobacco user? No Tobacco Control (Standard) Question Answer Notes Tobacco use: Nonsmoker Additional Findings: Tobacco non-user Current no nsmoker AUDIT-C (Standard) Question Answer Notes Did you have a drink contain ing alcohol in the past year? Yes How often did you have a dri nk containing alcohol in the past year? Monthly or less (1 point) How many drinks did you have on a typical day when you were drinking in the past year? 1 or 2 drinks (0 point) How often did you have six o r more drinks on one occasion in the past year? Never (0 point) Points 1 Interpretation Negative Problems Problem Type SNOMED Code ICD Code Onset Dates Problem Status W/U Status Risk Notes Problem Acquired hallux valgus (66253744) Hallux valgus (acquired), left foot (M20.12) Active confirmed Problem Non-pressure chronic ulcer of other part of right foot with fat layer exposed (L97.512) Active confirmed Problem Chronic ulcer of foot (822576434) Non-pressure chronic ulcer of other part of left foot with fat layer exposed (L97.522) Active confirmed Problem Acquired hallux valgus (28087608) Hallux valgus (acquired), right foot (M20.11) Active confirmed Plan Of Treatment Next Appt Details Provider Name:Luli tang, 12/25/2024 02:00:00 PM, [address] [place] [address], [phone], Insurance Providers Payer Name Payer Address Payer Phone Subscriber Number Group Number Insured Name Patient Relationship to Insured Coverage Start Date Coverage End Date [employer] [address] [facility] [place] [address] [id number] Kaylyn Mcqueen Self - patient is the insured [facility] [address] [place] [address] [id number] Kaylyn Mcqueen Self - patient is the insured Medical (General) History Medical History History ICD Code Arthritis asthma Headaches/Migraines Surgical History Surgery Date(Month/Year) Hernia Late Carpal Tunnel 2000 tendon repair 2023
--- OUTSIDE RECORDS SUMMARY | 2024-12-09 16:54 | XMS_ITS | Data Portability ---
Author Organization [facility], [facility] Address [address] [place] [address] Care Team Providers Care Glass Mould Cleaner Name Role Phone CHAIM CANTU Referring Provider [phone] CHAIM CANTU Primary Care Provider Assessment No [...] [address], [address], [place], [address], 5 14:32:39 Imaging None recorded. Medication Orders None recorded. Patient TargetsNo targets recorded. Patient InstructionsNo instructions recorded. Reason for Referral Occupational Therapist Refer [facility] for Surgical follow-up Diagnosis:FIRST DORSAL COMPARTMENT RELEASE LEFT 03/15/24Custom molded orthosis: noneTreatment: continue current care Referring Physician: Clifford hCaparro, Orthopedic Surgery, Encounter Date: 04/26/2024 Procedures Surgical History Date Name Laterality Status Provider Name and Address Organization Details Recorded Time 5 JZCelestone Hand Inj completed Clifford Chaparro MD [address], [place], [address], [facility] 04/26/2024 12:06:34 5 Trigger Finger Kenalog Injection completed Clifford Chaparro MD [address] [facility], [place], [address], [facility] 04/26/2024 12:06:05 5 JZCelestone Hand Inj completed Clifford Chaparro MD [address] [facility], [place], [address], [facility] 03/04/2024 11:31:48 4 JZCelestone Wrist Tendon Inj completed Clifford Chaparro MD [address] [facility], [place], [address], [facility] 10/17/2023 16:54:26 4 JZCelestone Hand Inj completed Clifford Chaparro MD [address] [facility], [place], [address], [facility] 07/25/2023 07:44:12 4 JZCelestone Wrist Tendon Inj completed Clifford Chaparro MD [address] [facility], [place], [address], [facility] 07/25/2023 07:43:22 4 JZWrist Joint Inj Celestone completed Clifford Chaparro MD [address] [facility], [place], [address], [facility] 07/25/2023 07:46:07 4 JZCelestone Wrist Tendon Inj completed Clifford Chaparro MD [address], [place], [address], [facility] 07/25/2023 15:28:48 4 JZCelestone Wrist Tendon Inj completed Clifford Chaparro MD [address], [place], [address], [facility] 05/27/2023 07:18:26 Imaging Results None recorded. Procedure Notes None recorded. Medical Equipment None Reported. Allergies Allergen ID Allergen Name Allergen Category Reaction Reaction Severity Criticality Documentation Date Start Date Code Code System Note Provider Name and Address Organization Details Recorded Time 093222 amoxicill in medicatio n Not available Not available Not available 05/23/2023 723 RxNorm YASH caicedo [facility] 4 14:23:05 251665 sulfadiaz ine medicatio n Not available Not available Not available 05/23/2023 82560 RxNorm YASH caicedo [facility] 4 14:23:12 Medications Name Sig Start Date [...] Updated DateTime 03/04/2024 151.13 cm 19.9 kg/m2 [address]83.[address] [facility] 03/04/2024 09:58:30 Date Recorded Body height Body mass index (BMI) Body weight Provider Name and Address Organization Details Last Updated DateTime 04/26/2024 151.13 cm 19.9 kg/m2 [address]157.[address] [facility] 04/26/2024 11:38:19 Date Recorded Body height Body mass index (BMI) Body weight Provider Name and Address Organization Details Last Updated DateTime 06/07/2024 151.13 cm 19.9 kg/m2 33730.24 [facility] 06/07/2024 11:41:30 Date Recorded Body height Body mass index (BMI) Body weight Provider Name and Address Organization Details Last Updated DateTime 01/24/2024 151.13 cm 19.9 kg/m2 [address]12.[address] [facility] 01/24/2024 14:04:53 Social History None recorded. Functional Status None recorded. Mental Status None recorded. Family History Nothing Reported. Medical History No medical history recorded. Gynecological HistoryNo gynecological history recorded. Obstetrics History GPAL:G 0 P 0 0 0 0 Past Encounters Encounter ID Performer Location Encounter Start Date Encounter Closed Date Diagnosis/Indication Diagnosis SNOMED-CT Code Diagnosis ICD10 Code Diagnosis IMO Codes Diagnosis Note [id number] MD Charlene Taylor [address] [place] [address] 05/23/2023 13:51:35 06/05/2023 15:37:35 Bilateral wrist pain 7293038878 2738802 M25.531 M25.532 M79.644 Tenosynovi tis of left radial styloid 4447971312 3264417 M65.4 Bilateral arthritis of wrist 5989790969 754986 M13.831 M13.832 Tenosynovi tis of left wrist 8509591409 077439 M65.024 [id number] Clifford Chaparro MD [facility] [address] [place] [address] 07/03/2023 15:35:39 07/14/2023 08:10:05 Tenosynovitis of right radial styloid 1296238845 8283179 M65.4 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 5618543564 66640 M19.041 M19.042 Arthritis of first carpometacarpal joint of right hand 3645962727 897900 M13.274 [id number] Zeenat Ross, [facility] [address] [place] [address] 07/04/2023 13:24:12 07/04/2023 14:05:26 Osteoarthrosis of the carpometacarpal joint of the thumb 83248011 M18.9 [id number] Zeenat Ross OTR/L,T [facility] [address]st [address] [address] 07/14/2023 11:02:03 07/14/2023 12:29:26 Osteoarthrosis of the carpometacarpal joint of the thumb 63000130 M18.9 The orthosis is assessed for style [...] tasks. Tenosynovi tis of right radial styloid 1994825888 5798218 M65.4 I suspect that she has an [...] Pain in fi nger of right hand 3814787313 76684 M79.644 The patient is also quite concerned [...] finds that her symptoms are aggravated . 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 1383089222 07402 M19.041 M19.538 [id number] MD Charlene Taylor [address] [place] [address] [address] [place] [address] 10/13/2023 11:15:12 11/06/2023 11:44:31 Tenosynovitis of left radial styloid 5701091003 2019199 M65.4 [id number] MD Charlene Taylor [address] [place] [address] 01/24/2024 13:55:11 02/24/2024 10:57:18 Tenosynovitis of wrist 517075769 M65.034 [id number] Clifford Chaparro MD [facility] - [facility] [address] [place] [address] 03/04/2024 09:43:41 03/19/2024 12:36:40 Arthritis of first carpometacarpal joint of right hand 6010196434 354512 M18.11 49985468 Extensor tenosynovitis of wrist 543349978 M65.932 36367177 [id number] Zeenat Ross OTR/L,CHT [facility] Charlene [address] [facility] [address] [place] [address] 03/29/2024 09:55:16 03/29/2024 11:43:39 Postoperative visit 778898967 Z48.89 [id number] Plan: Surgical dressing is removed and the [...] weeks postop. Tenosynovi tis of left wrist 7803725450 279915 M65.932 [id number] This visit was completed today under the supervisio n of Dr. Chaparro Examinatidemetrius n: Upon removal of the postop dressing, [...] post left first dorsal compartmen t release [id number] MD LUIS Taylor [address] [place] [address] [address] [place] [address] 04/26/2024 11:19:55 05/14/2024 14:13:54 Surgical follow-up 947089053 Z48.89 9455169 Flexor ten osynovitis of finger 859748230 M65.949 446823 Arthritis of first carpometacarpal joint of right hand 4161613796 272324 M18.11 [id number] MD LUIS Taylor [address] [place] [address] [address] [place] [address] 06/07/2024 11:35:15 06/20/2024 14:16:40 Extensor tenosynovitis of wrist 349393425 M65.932 [id number] Health Concerns Section Related Observation LastModified by Organization Detai ls LastModified Time None Recorded Concern Status LastModified by Organization Details LastModified Time None Recorded Advance Directives Directive None Recorded Payers Insurance Date Sequence Insurance Name Policy Number Policy Lofton Covered Member ID Lofton Member ID Guarantor Name 06/07/2024 1 [place]ARE [place]: [employer] Kaylyn Horne [id number] Kaylyn Chalifoux 06/20/[address] [place] [address] - PLAN 1 (MEDICARE SUPPLEMENT) [id number] Kaylyn Chalifoux [id number] Kaylyn Chalifoux 06/07/2024 [facility] CLAIMS (MEDICARE DME REGION A) Kaylyn Chalifoux [id number] Kaylyn Chalifoux Notes Date Note Type [...] consented to the procedure. Clifford Chaparro MD [address] [place], [place] [address] [address], [place], [address], [facility] 01/27/2024 14:59:51 03/04/2024 text/html [...] of the wrist. Clifford Chaparro MD [address] [facility] [address], [place], [address], [facility] 03/04/2024 11:32:41 03/29/2024 text/html [...] month to meet with the surgeon VAN Mariano/Diomedes,TANNERT [address], [place], [address], [facility] 03/29/2024 10:44:01 04/26/2024 text/html [...] follow-up at 6 weeks. Clifford Chaparro MD [address] [place] [address] [address], [place], [address], [facility] 04/26/2024 12:07:40 06/07/2024 text/html ROS as noted [...] with this plan. Clifford Chaparro MD [address] [facility] [address], [place], [address], [facility] 06/07/2024 12:10:53 OBGyn Episode No OBEpisode recorded.
--- OUTSIDE RECORDS SUMMARY | 2024-12-09 16:55 | XMS_ITS | Data Portability ---
Author Organization [place] - [facility], Allergy Address [address] [place] [address] Care Team Providers Care Claims Attorney Name Role Phone STERLING SANCHEZ Primary Care Provider [phone] Assessment Encounter Date Assessment Date Assessment LastModified by Organization Details LastModified Time 09/26/2024 09/26/2024 Kaylyn is a 71-year-old female who presents today for evaluation of sore throat and ear pain, as well as asymmetrical sensorineural hearing loss.. On FFL examination was found to have significant LPR changes to her larynx and esophageal inlet. -Findings today were consistent with LPR or laryngopharyngeal reflux. We discussed lifestyle modifications, including avoiding caffeinated, spicy, or acidic foods, elevating the head of the bed during sleep, and avoiding eating before lying flat. The patient can also trial alginate therapy with either Gaviscon or Reflux Gormet prn. The patient will also start taking acid-reducing medication 30 minutes before meals: 40mg PPI Daily. She will do this for 8 weeks. I would also like her to see her GI physician again for potential repeat evaluation -Her bilateral otalgia is likely due to combination of obstructive cerumen which was removed today bilaterally under the microscope as well as significant TMJ arthralgia/crepitus .I recommended the patient use light massage, warm compresses and anti-inflammatories for symptomatic management. Stressed avoidance of chewy foods and gum/hard sweets. Use soft food diet as needed. [facility] Program information sheet was shared. If this treatment plan is ineffective, recommend follow up with their dentist.Referral to physical therapist who specializes in TMJ disorders - Her audiogram was personally reviewed interpreted today which showed the following findings: She had a normal downsloping to moderate severe sensorineural hearing loss greater on the right than left.. I discussed with her that she does meet criteria for potential MRI with these findings but would like to hold off for now. Instead we will repeat hearing test in 1 year. -Return visit in 8 weeks for recheck of LPR [email or web address] Not available 09/26/2024 12:27:39 Plan of Treatment Reminders Order Date Submit Date Provider Last Modified By Organization Details Last Modified Time Details Appointments Estab debbijian maribel 15 2024 10:00A M Mika Alcala, DO Not available Not available Not available Lab None recor ded. Referral gastr marla hightower ist refer ral - Refra ctory GERD/ LPR - Dr. De La Cruz 2024 025 [email or web address] [facility], [address] [place] [address] Dr, [facility], [place], [address], 10/08/2024 11:40:36 Procedures None recor ded. Surgeries None recor ded. Imaging None recor ded. Medication Orders omepr azole 40 mg capsu le,de layed relea se 2024 025 [place] [id number], [address] [facility], [place], [address], 09/26/2024 10:36:59 Patient TargetsNo targets recorded. Patient Instructions Encounter Date Encounter Id Patient Instructions Last Modified By Organization Details Last Modified Time 09/26/2024 [id number] laryngopharyngea l reflux education [email or web address] Not available 09/26/2024 10:36:57 Reason for Referral Dispatch Lead Referral for Edema of larynx GERD/NH Refractory GERD/LPR - Dr. De La Cruz Referring Physician: Mika Alcala, Otolaryngology, Encounter Date: 09/26/2024 Results Created Date Observation Date Name Description Value Unit Range Abnormal Flag Note LastModifiedBy Organization Detail LastModifiedTime 09/27/19 25 audio gram No observ ation record ed. BARCODE Not Available 2024 17:07:03 Result Notes None recorded. Problems Name Problem SNOMED Code Status Onset Date Resolution Date Notes Provider Name and Address Organization Details Recorded Time Abnormal auditory perceptio n 58792367 Active 2016 Other abnormal auditory perceptio ns, bilateral ; Note: Date Diagnosed : 7 5:23 PM (H93.293) Not Available [facility] 4 03:18:18 Bilateral tinnitus 88192659684 02 Active 2016 Tinnitus, bilateral ; Note: Date Diagnosed : 7 4:46 PM (H93.13) Not Available [facility] 4 03:18:18 Sensorine ural hearing loss of bilateral ears 114709699 Active 2016 Sensorine ural hearing loss, bilateral ; Note: Date Diagnosed : 7 4:46 PM (H90.3) Not Available [facility] 4 03:18:18 Bilateral temporoma ndibular joint pain 39778774472 956047 Active 2016 Arthralgi a of bilateral temporoma ndibular joint; Note: Date Diagnosed : 7 5:22 PM (M26.623) Not Available [facility] 4 03:18:18 Impacted cerumen of bilateral ears 62530629069 77877 Active 2020 Impacted cerumen, bilateral ; Note: Date Diagnosed : 07/10/2020 2:48 PM (H61.23) Mika Alcala [address] [address], [place], [address] , [place] - [facility] 5 10:25:46 Bilateral earache 415252132 Active 2024 Mika Alcala [address] [address], [place], [address] , [place] [facility] 5 08:49:45 Sensorine ural hearing loss of bilateral ears 743405430 Active 2024 Mika Alcala [address] [address], [place], [address] , [place] 5 08:50:03 Sore throat 379445428 Active 2024 Mika Fredrick, DO [address], [place], [address] , [facility] - [facility] 5 09:20:08 Uncomplic ated moderate persisten t asthma 040313063 Active 2024 Mika Alcala, DO [address], [place], [address] , [facility] - [facility] 5 10:25:06 Gastroeso phageal reflux disease without esophagit is 394578450 Active 2024 Mika Alcala, DO [address], [place], [place], [address] , [facility] - [facility] 5 10:28:37 Laryngoph aryngeal reflux 636075695 Active 2024 Mika Alcala DO [address], [place], [address] , [facility] - [facility] 5 10:28:37 Edema of larynx 68380168 Active 2024 Mika Alcala, DO [address] [facility], [place], [address] , [facility] - [facility] 5 10:28:37 Asymmetri anastasiya sensorine ural hearing loss 508955734 Active 2024 Mika Alcala, DO [address] [facility] [address], [place], [address] , [facility] - [facility] 12:26:58 Problem Notes None recorded. Procedures Surgical History Date Name Laterality Status Provider Name and Address Organization Details Recorded Time 09/27/19 25 Comp Audio with Tymps - 71174 & 76576 completed GLORIA TOWNSEND [place], [facility] [address] [facility] [address], [place], [address], [facility] - [facility] 09/26/2024 11:00:50 09/27/19 25 Cerumen removal with microscope completed Mika Alcala DO [address] [facility] [address] [address], [place], [address], [facility] - [facility] 09/26/2024 10:25:39 09/27/19 25 FOL_normal_DHL completed Mika Alcala, [address], [address], [facility] - [facility] 09/26/2024 10:34:23 hernia repair completed Darrick Nicole [facility] 09/26/2024 10:00:32 injection of carpal tunnel completed Darrick Nicole [facility] 09/26/2024 10:01:18 Imaging Results None recorded. Procedure Notes None recorded. Medical Equipment None Reported. Allergies Allergen ID Allergen Name Allergen Category Reaction Reaction Severity Criticality Documentation Date Start Date Code Code System Note Provider Name and Address Organization Details Recorded Time 880584 amoxicill in medicatio n other Not available Not available 07/04/2023 723 RxNorm React ion: Unkno wn; Not Available [facility] 4 01:24:05 028244 Substance with sulfonami de structure and antibacte rial mechanism of action (substanc e) medicatio n other Not available Not available 07/04/2023 66508 8003 SNOMED React ion: unkno wn, unspe cifie d;; Not Available [facility] 4 01:24:05 981062 doxycycli ne Not available Not available Not available Not available 09/26/2024 3640 RxNorm Darrick caicedo [facility] 5 09:59:48 Medications Name Sig Start Date Stop Date Status Note LastModified by Organization Details LastModified Time albuterol sulfate 2.5 mg/3 mL (0.083 %) solution for nebulizati on INHALE 2.5 MG (3 ML) INHALED EVERY 4 TO 6 HOURS NEEDED FOR SHORTNESS OF BREATH OR WHEEZING active Not Available Not Available No t Available albuterol sulfate 1.25 mg/3 mL solution for nebulizati on 2016 active Medicatio n ID: [id number] Br and Name: albuterol sulfate S end Method: E-Prescri bed Subs Allowed: subs OK Medica tionGener icName: albuterol sulfate Not Available Not Available Not Available omeprazole 40 mg capsule,de layed release TAKE 1 CAPSULE BY MOUTH EVERY DAY active Not Available Not Available No t Available butalbital -acetamino phen-caffe ine 50 mg-325 mg-40 mg tablet TAKE 1 TABLET BY MOUTH EVERY 6 HOURS NEEDED FOR HEADACHE active Not Available Not Available No t Available zolpidem 5 mg tablet TAKE 1 TABLET BY MOUTH BEDTIME NEEDED FOR SLEEP active Not Available Not Available No t Available methylpred nisolone 4 mg tablets in a dose pack TAKE 6 TABLETS ON DAY 1 DIRECTED ON PACKAGE AND DECREASE BY 1 TAB EACH DAY FOR A TOTAL OF 6 DAYS active Not Available Not Available No t Available dicyclomin e 10 mg capsule TAKE 2 CAPSULES BY MOUTH 4 TIMES A DAY active Not Available Not Available No t Available oxycodone 5 mg tablet TAKE 1 TABLET BY MOUTH EVERY 4 HOURS NEEDED FOR 2 DAYS active Not Available Not Available No t Available neomycin-p olymyxin-h ydrocort 3.5 mg-10,000 unit/mL-1 % ear drops,susp PLACE 4 DROPS INTO THE LEFT EAR EVERY 8 HOURS FOR 7 DAYS active Not Available Not Available No t Available hydrocodon e 7.5 mg-acetami nophen 325 mg/15 mL oral solution 15 ML ORALLY EVERY 4 TO 6 HOURS NEEDED FOR COUGH PARTIAL FILL UPON PATIENT REQUEST. active Not Available Not Available No t Available levocetiri zine 5 mg tablet TAKE 1 TABLET BY MOUTH DAILY NEEDED FOR ALLERGY SYMPTOMS active Not Available Not Available No t Available Procort 1.85 %-1.15 % rectal cream 2016 active Medicatio n ID: [id number] Br and Name: Procort S end Method: E-Prescri bed Subs Allowed: subs OK Medica tionGener icName: Procort Not Available Not Available Not Available ProAir RespiClick 90 mcg/actuat ion breath activated INHALE 2 INHALED EVERY 4 TO 6 HOURS NEEDED FOR FOR WHEEZING active Not Available Not Available No t Available Vitals Date Recorded Body height Body mass index (BMI) Body weight Provider Name and Address Organization Details Last Updated DateTime 09/26/2024 149.86 cm 20.2 kg/m2 89703.24 g Darrick Nicole [place] - [facility] 09/26/2024 09:59:26 Social History None recorded. Functional Status None recorded. Mental Status None recorded. Family History Nothing Reported. Medical History Condition Response Migraines Y Asthma Y Gynecological HistoryNo gynecological history recorded. Obstetrics History GPAL:G 0 P 0 0 0 0 Past Encounters Encounter ID Performer Location Encounter Start Date Encounter Closed Date Diagnosis/Indication Diagnosis SNOMED-CT Code Diagnosis ICD10 Code Diagnosis IMO Codes Diagnosis Note [id number] Mika Alcala DO [facility] [address] [address] 09/26/2024 09:24:40 09/30/2024 12:53:18 Bilateral earache 161646986 H92.03 8574540 Sore throat 929747280 J0 2.9 89371 Uncomplica elizabeth moderate persistent asthma 556895869 J45.40 4881172 Impacted c erumen of bilateral ears 3587030838 134176 H61.23 635331 Laryngopha ryngeal reflux 382216334 K21.9 5829160 Edema of larynx 38779251 J38.4 72470 Asymmetric al sensorineural hearing loss 889693617 H90.3 [id number] GLORIA TOWNSEND MA, CCC-A [facility] [address] [address] 09/26/2024 09:28:45 09/26/2024 10:33:03 Bilateral earache 240677023 H92.03 7420287 Sensorineu ral hearing loss of bilateral ears 764529917 H90.3 971981 Audiologic al evaluation results: 09-26-2024 Right ear: Normal/ borderline normal hearing thru 1000Hz, sloping to a moderate-s evere SNHL with excellent word recognitio n. Left ear: Normal hearing thru 1000Hz sloping to a mild to moderate SNHL with excellent word recognitio n. Tympanomet ry: Right Ear:Type As Left Ear:Type A Health Concerns Section Related Observation LastModified by Organization Detai ls LastModified Time None Recorded Concern Status LastModified by Organization Details LastModified Time None Recorded Advance Directives Directive None Recorded Payers Insurance Date Sequence Insurance Name Policy Number Policy Lo[place] Covered Member ID Lofton Member ID Guarantor Name 09/26/2024 1 [place]: XL Video Kaylyn Chalifoux [id number] Kaylyn Chalifoux 09/26/2024 2 [facility] [id number] Kaylyn Chalifoux [id number] Kaylyn Chalifoux Notes Date Note Type Note Provider Name and Address Organization Details Recorded Time 09/26/2024 text/html Ear pain for a number of months GLORIA TOWNSEND [place], [facility] [address] [facility],[address] [address], [place], [address], [facility] - [facility] 09/26/2024 11:04:01 09/26/2024 text/html ROS as noted in the HPI Interval history: bilateral ear pain for the last few months or years. She is unsure. Notes some generalized hearing loss but nothing significant. No new onset tinnitus. She does endorse some otalgia worse on the right side greater than the left no specific triggers. In regards to her sore throat it has been going on for a few weeks. No fevers, chills, weight loss, night sweats, neck pain, neck swelling. She does use an inhaler for asthma which is moderately to poorly controlled she is following up with her asthma physician. No history of GERD but does have a history of IBS. Her voice has also gotten worse recently. No history of TMJ dysfunction that she is aware of. She does endorse Q-tip use Audiogram from 07/10/2020 was personally reviewed and interpreted which showed bilateral normal downsloping to moderate severe sensorineural hearing loss bilaterally Previously was evaluated by Dr. Tucker (06/2020): He found bilateral cerumen impaction, bilateral high-frequency sensorineural hearing loss with right sided non-pulsatile tinnitus. Noted a history of previous migraine. Mika Alcala, DO [address] [facility],[address] [address], [place], [address], [facility] - [facility] 09/26/2024 12:28:14 OBGyn Episode No OBEpisode recorded.
== END 2024-12-09 14:51 | disposition home or self-care (01) ==
LOC: HO.HMCH 13:42
PROVIDERS: PCP Internal Medicine; Visit Provider Internal Medicine
DX: G43.909 Migraine, unspecified, not intractable, without status migrainosus (principal); G47.00 Insomnia, unspecified; R53.83 Other fatigue; E78.5 Hyperlipidemia, unspecified; Z23 Encounter for immunization

== ENCOUNTER → 2024-12-09 13:41 | Outpatient (BNVA) | payer MEDICARE, OTHER, SELFPAY | PROVIDERS: PCP Internal Medicine; Visit Provider Internal Medicine | DX: R42 Dizziness and giddiness (principal); G43.909 Migraine, unspecified, not intractable, without status migrainosus; G47.00 Insomnia, unspecified; E78.5 Hyperlipidemia, unspecified; R53.82 Chronic fatigue, unspecified; Z23 Encounter for immunization | CPT/HCPCS: 90471; 90656; 96127; 99212 ==

== ENCOUNTER 2025-01-27 09:26 | Outpatient (AMB) | payer MEDICARE, OTHER, SELFPAY ==
--- NOTE | 2025-01-27 09:29 | A.OFFVIS_ITS ---
Vital Signs 01/27/25 09:30 Height 4 ft 11 in Weight 101 lb BMI 20.4 BP 118/60 Blood Pressure Location Rt brachial Position Sitting Pulse 94 Pulse Source Pulse Oximeter Pulse Oximetry (%) 94 Oxygen Delivery Method Room Air Intake Visit Reasons: Shortness of breath Allergies azithromycin Allergy (Severe, Verified 01/27/25 09:34) hives amoxicillin (AMOXICILLIN) Allergy (Intermediate, Verified 01/27/25 09:34) UNKNOWN doxycycline (DOXYCYCLINE) Allergy (Intermediate, Verified 01/27/25 09:34) Hives latex Allergy (Intermediate, Verified 01/27/25 09:34) Swelling Sulfa (Sulfonamide Antibiotics) (SULFA (SULFONAMIDE ANTIBIOTICS)) Allergy (Intermediate, Verified 01/27/25 09:34) HIVES omeprazole Adverse Reaction (Intermediate, Verified 01/27/25 09:34) Abdominal Pain HPI HPI Shortness of breath: Details: 75-year-old lady, former approximately 15 pack-year smoker, quit 20 years prior, followed for severe persistent asthma and environmental allergies. She has been tried on Xolair, however she developed side effects from its use. She is not able to afford inhaled inhaled steroid/long-acting beta agonist or short acting beta agonist either. She has been tried on Nucala, however she denies any symptomatic improvement. She was approved for Dupixent, however she is not able to use it secondary to its high cost. She continues on albuterol MDI/nebs with suboptimal control of her symptoms. She was seen by ENT and started on Zyrtec with mild improvements. [facility] Medical History Migraine headache Hiatal hernia Migraine Irritable bowel syndrome with constipation Asthma Surgical History History of bilateral carpal tunnel release History of esophagogastroduodenoscopy (EGD) Hx of colonoscopy H/O ventral hernia repair Family History Father Diabetes Mother Cancer Social History Housing: House Patient Tobacco Use Status: Former Tobacco user Tobacco use type: Cigarette Years Smoked: 20-25 yrs e-Cigarette/Vaping Use: Never Used Second Hand Smoke Exposure: No service: No Current occupational status: retired Cognitive needs: No Hearing needs: No Vision needs: No Review of Systems Const Denies daytime sleepiness, Denies excessive sweating, Denies fatigue, Denies fever(s), Denies lethargy, Denies malaise, Denies night sweats, Denies snoring and Denies weight loss Eyes Denies blurry vision and Denies itchy eyes ENT Denies nasal congestion, Denies post nasal drip, Denies sinus pain, Denies sinus pressure and Denies other ( Thrush) Card Denies chest pain, Denies pedal edema, Denies dyspnea, Denies orthopnea and Denies paroxysmal nocturnal dyspnea Resp Reports cough, Denies hemoptysis, Denies excessive phlegm production, Denies dyspnea, Denies snoring and Denies wheezing GI Denies abdominal pain and Denies heartburn Musc Denies myalgias, Denies arthralgias and Denies joint swelling Skin/Breast Denies rash Neuro Denies memory loss and Denies seizure-like activity Psych Denies abnormal sleep pattern, Denies anxiety and Denies memory loss Endo Denies excessive sweating, Denies fatigue and Denies heat intolerance Bob/Lymph Denies easy bruising Aller/Immun Denies itchy eyes, Denies seasonal rhinorrhea and Denies wheezing Physical Exam Vital Signs: Last Vital Signs Pulse 94 01/27/25 09:30 BP 118/60 01/27/25 09:30 Pulse Ox 94 01/27/25 09:30 Oxygen Delivery Method Room Air 01/27/25 09:30 BMI result Body Mass Index 20.4 Const General: no acute distress and alert Nutritional Appearance: not obese Orientation/consciousness: Other orientation findings ( oriented) HEENT Head: Yes atraumatic Eyes General: appearance normal, both eyes and all related structures Sclerae: sclerae normal EOM: EOMs intact bilaterally Neck Neck: Yes supple Lymphatic: no lymphadenopathy noted Resp Effort & Inspection: normal respiratory effort and no use of accessory muscles Auscultation: clear to auscultation bilaterally Cardio Rate: regular rate Rhythm: regular rhythm Heart sounds: no gallops, no murmurs and no rubs Skin General skin exam: other ( warm) Extrem General: No clubbing, No cyanosis and No edema Assessment & Plan Assessment & Plan (1) Asthma: Code(s): J45.909 - Unspecified asthma, uncomplicated Category: Medical Plan: Suboptimal control on albuterol MDI and nebs. Continue current regimen. Will add Singulair. (2) Environmental allergies: Code(s): Z91.09 - Other allergy status, other than to drugs and biological substances Category: Medical Plan: Unable to afford Dupixent, continue Zyrtec, expect some improvement with Singulair. Medications: New montelukast (Singulair) 10 mg PO DAILY 30 tabs 6RF Discontinued dupilumab (Dupixent) Initial dose 600 mg, then 300 mg every 2 weeks subcutaneously Discontinued Reason: Doctor's Order 300 mg (2 mL) subcut QWEEK 4 mL 12RF Coding Level of Care Code Est Pt Level 4 (00732) Diagnoses Asthma J45.909 Environmental allergies Z91.09
[2025-01-27 09:30] VITALS: BP 118/60; PULSE 94; O2SAT 94; BMI 20.4
== END 2025-01-27 09:44 | disposition home or self-care (01) ==
LOC: HO.HPS 09:26
PROVIDERS: PCP Internal Medicine; Visit Provider Internal Medicine Pulmonary Disease
DX: J45.909 Unspecified asthma, uncomplicated (principal); Z91.09 Other allergy status, other than to drugs and biological substances
CPT/HCPCS: 99214

== ENCOUNTER → 2025-01-27 09:26 | Outpatient (BNVA) | payer MEDICARE, OTHER, SELFPAY | PROVIDERS: PCP Internal Medicine; Visit Provider Internal Medicine Pulmonary Disease | DX: R06.02 Shortness of breath (principal); J45.909 Unspecified asthma, uncomplicated; Z91.09 Other allergy status, other than to drugs and biological substances | CPT/HCPCS: 99212 ==